=== PATIENT | male | born 1955 | race Hispanic/Latino ===

== ENCOUNTER 2018-07-12 12:01 | Inpatient (IN) | payer MEDICAID ==
[2018-07-12] MEDS ORDERED: NACL 0.9% 500 ML 500 ML IV ONE (12:26)
[2018-07-12] MEDS ORDERED: TYLENOL PR STA (12:26)
[2018-07-12] MEDS ORDERED: NACL 0.9% 1000 ML IV ONE (12:31)
[2018-07-12 12:40] LABS: Hematocrit 25.9 % (35.5-45.6); Hemoglobin 8.4 gm/dl (11.8-15.2); Mean Corpuscular HGB Conc 32 % (32-34); Mean Corpuscular Volume 96 fl (84-94); Platelet Count 175 K/mm3 (140-440); Red Cell Distribution Width 17.2 % (13.2-15.2)
--- NOTE | 2018-07-12 12:45 | Emergency Department Report ---
HPI - General Chief Complaint: Fever Time Seen by Provider: 07/12/18 12:30 - HPI HPI: Room 25 The patient is a 61-year-old male presented with a chief complaint of fever. Patient is a [facility] at a detention and at 11:00am today was found to be febrile at 101F. The patient is aphasic from previous CVA and does not provide history. Location: [See above] Duration: [See above] Quality: [See above] Severity: [See above] Modifying factors: [see above] Context: [see above] Mode of transportation: [not driving] ED Past Medical Hx - Past Medical History Previous Medical History?: Yes Hx Hypertension: Yes Hx CVA: Yes Hx Diabetes: Yes Hx Psychiatric Treatment: Yes (depression) Hx COPD: Yes Hx Dementia: Yes Additional medical history: CAD, hyperlipidemia, aphasia, L AKA. Prostate disorder, peripheral vascular disease - Surgical History Past Surgical History?: Yes Additional Surgical History: explant infected fem-fem bypass graft 07/14/14 - Family History Family history: no significant - Social History Smoking Status: Unknown if ever smoked Substance Use Type: None - Medications Home Medications: Home Medications Medication Instructions Recorded Confirmed Last Taken Type Docusate Sodium [Colace CAP] 2 tab PO QHS 08/03/14 08/12/15 07/24/14 History Metoprolol [Lopressor TAB] 25 mg PO DAILY 08/03/14 08/12/15 07/24/14 History amLODIPine [Norvasc] 5 mg PO DAILY #0 08/03/14 08/12/15 07/24/14 History 5 ALBUTEROL Inhaler (OR & NICU) 2 puff IH QID PRN #1 inhalation 08/08/14 08/12/15 Unknown Rx [ProAir HFA Inhaler] AtorvaSTATin [Lipitor] 10 mg PO QHS 06/21/15 08/12/15 Unknown History Citalopram [Celexa] 20 mg PO DAILY 06/21/15 08/12/15 Unknown History Gabapentin [Neurontin] 100 mg PO BID 06/21/15 08/12/15 Unknown History HYDROcodone/APAP 5-325 [[place] 1 each PO Q6H PRN 06/21/15 08/12/15 Unknown History 5-325 mg TAB] LORazepam [Ativan] 0.5 mg PO Q4H PRN 06/21/15 08/12/15 Unknown History Vitamin C 500 mg PO DAILY 06/21/15 08/12/15 Unknown History Ipratropium/Albuterol Sulfate 1 ampul IH Q6HRT PRN 08/12/15 Unknown History [DUONEB *Not for PRN Use*] Tamsulosin [Flomax] 0.4 mg PO DAILY 08/12/15 Unknown History Temazepam [Restoril] 15 mg PO QHS PRN 08/12/15 Unknown History traMADol [Ultram] 50 mg PO Q6HR PRN 08/12/15 Unknown History ED Review of Systems ROS: Stated complaint: ELVIA Other details as noted in HPI Comment: Unobtainable due to pts medical conditions Physical Exam - Physical Exam Vital Signs: Vital Signs 07/12/18 12:12 Temperature 99.7 F H Pulse Rate 124 H Respiratory 16 Rate Blood Pressure 80/50 O2 Sat by Pulse 95 Oximetry Physical Exam: GENERAL: The patient is well-developed adult male lying on stretcher aphasia and contracted HEENT: Normocephalic. Atraumatic. Patient has moist mucous membranes. NECK: Supple. Trachea midline CHEST/LUNGS: Clear to auscultation. There is no respiratory distress noted. HEART/CARDIOVASCULAR: Regular. There is tachycardia. The patient is hy potensive ABDOMEN: Abdomen is soft, nontender. Patient has normal bowel sounds. There is no abdominal distention. SKIN: There is a chronic appearing ulceration to the sole of the right foot at the great toe MTP joint. There is no edema. There is no diaphoresis. NEURO: The patient is awake. The patient is aphasic from previous CVA MUSCULOSKELETAL: There is no tenderness or deformity. ED Course Vital Signs 07/12/18 12:12 Temperature 99.7 F H Pulse Rate 124 H Respiratory 16 Rate Blood Pressure 80/50 O2 Sat by Pulse 95 Oximetry ED Medical Decision Making - Lab Data Result diagrams: 07/12/18 12:03 07/12/18 12:03 - EKG Data -: EKG Interpreted by Me EKG shows normal: sinus rhythm Rate: tachycardia (126 bpm) - EKG Data When compared to previous EKG there are: previous EKG unavailable Interpretation: other (no ischemic changes seen) - Radiology Data Radiology results: image reviewed (chest x-ray) interpreted by me: Chest x-ray-right middle lobe consolidation - Differential Diagnosis pneumonia, UTI, decubitus ulcer Critical care attestation.: If time is entered above; I have spent that time in minutes in the direct care of this critically ill patient, excluding procedure time. ED Disposition Clinical Impression: Pneumonia, Sepsis Disposition: OP ADMIT IP TO THIS HOSP Is pt being admited?: Yes Does the pt Need Aspirin: No Condition: Serious Instructions: Bacterial Pneumonia (ED) Referrals: SILAS BARONE MD [Primary Care Provider] - 3-5 Days Time of Disposition: 14:24 (hospitalist notified (Dr Velasquez))
[2018-07-12] MEDS ORDERED: VANCOMYCIN 1,250 MG in NACL 0.9% 500 ML 500 ML IV ONE (12:46)
[2018-07-12 12:55] LABS: Calcium 7.7 mg/dL (8.4-10.2); INR 1.53 (0.87-1.13)
[2018-07-12] MEDS ORDERED: ROCEPHIN/NS 1 GM/50 ML 1 GM/50 ML BAG IV SCH (13:00)
[2018-07-12] MEDS ORDERED: VANCOMYCIN PHARMACY TO DOSE IV SCH (13:00)
[2018-07-12] MEDS ORDERED: MAXIPIME/NS 2 GM/100 ML 2 GM/100 ML BAG IV SCH (14:00)
--- NOTE | 2018-07-12 14:24 | XRay Report ---
PORTABLE CHEST INDICATION: Possible sepsis. COMPARISON: 06/25/2015 FINDINGS: Portable, frontal chest radiograph demonstrates stable cardiomediastinal silhouette. Increased perihilar markings bilaterally though now noted, nonspecific. Increased infrahilar haziness bilaterally as well, left greater than right with partly obscured left hemidiaphragm medially. No significant pleural effusions or CHF. Osteopenia/osteoporosis. CONCLUSION: New/increased left more than right basilar hazy opacities/pneumonias, as detailed above. Please correlate. Thank you for the opportunity to participate in this patient's care.
[2018-07-12 14:27] LABS: Anisocytosis 1+; Band Neutrophils # (Manual) 1.3 K/mm3; Basophils % (Manual) 0 % (0.0-1.8); Eosinophils % (Manual) 0 % (0.0-4.3); Hypochromasia 1+; Platelet Estimate Consistent w Auto; Total Cells Counted 100
[2018-07-12] MEDS ORDERED: MAXIPIME/NS 1 GM/100 ML 1 GM/100 ML BAG IV SCH (15:00)
[2018-07-12 16:09] LABS: Bacteria,Urine 2+ /HPF (Negative); Bilirubin,Urine NEG (Negative); Blood,Urine MOD (Negative); Color,Urine Amber (Yellow); Mucus,Urine FEW /HPF; Urobilinogen,Urine < 2.0 mg/dL (<2.0)
[2018-07-12] MEDS ORDERED: ULTRAM PO PRN (21:51)
[2018-07-12] MEDS ORDERED: ZOFRAN IV PRN (21:52)
[2018-07-12] MEDS ORDERED: SODIUM CHLORIDE FLUSH SYRINGE 10 ML IV PRN (21:52)
[2018-07-12] MEDS ORDERED: TYLENOL PO PRN (21:52)
[2018-07-12] MEDS ORDERED: MORPHINE IV PRN (21:53)
[2018-07-12] MEDS ORDERED: IBUPROFEN PO PRN (21:53)
[2018-07-12] MEDS ORDERED: PROVENTIL IH PRN (21:54)
[2018-07-12] MEDS ORDERED: COZAAR PO SCH (22:00)
[2018-07-12] MEDS ORDERED: THERAGRAN-M Tab PO SCH (22:00)
[2018-07-12] MEDS ORDERED: PEPCID PO SCH (22:00)
[2018-07-12] MEDS ORDERED: HEPARIN SUB-Q SCH (22:00)
[2018-07-12] MEDS ORDERED: TYLENOL PO SCH (22:00)
[2018-07-12] MEDS ORDERED: D5NS 1,000 ML IV SCH (22:00)
[2018-07-12] MEDS ORDERED: NEURONTIN PO SCH (22:00)
[2018-07-12] MEDS ORDERED: SENOKOT PO SCH (22:00)
--- NOTE | 2018-07-12 22:00 | Event Note ---
Date: 07/12/18 See dictated history and physical in the reports Right upper lobe pneumonia COPD exacerbation Acute kidney injury Hypertension BPH
--- NOTE | 2018-07-12 22:57 | History and Physical Report ---
CHIEF COMPLAINT: 1. Fever. 2. Shortness of breath. HISTORY OF PRESENT ILLNESS: The patient is a 63-year-old male with left above knee amputation, cerebrovascular accident with aphasia, hypertension, COPD, last hospital visit being in 2016, comes in for increasing shortness of breath and cough and fever. Cough productive of mucoid to yellow sputum. The patient was febrile at 101 degrees for the last couple of days. No exacerbating or relieving factors. The patient has multiple medical problems including hypertension, cerebrovascular accident, diabetes, depression, COPD, dementia, coronary artery disease and left above knee amputation. PAST MEDICAL HISTORY: As mentioned, hypertension, CVA, diabetes, depression, COPD, dementia, coronary artery disease, hyperlipidemia, aphasia, left below knee amputation, BPH and peripheral vascular disease. SURGICAL HISTORY: Infected fem-fem bypass graft and left above knee amputation. FAMILY HISTORY: Hypertension. SOCIAL HISTORY: Smoker in the past. CURRENT MEDICATIONS: On the chart. REVIEW OF SYSTEMS: Significant for fever, aphasia and cough and shortness of breath. Otherwise, review of systems are negative. PHYSICAL EXAMINATION: GENERAL: A young elderly male, cooperative during the examination. Aphasic. VITAL SIGNS: Temperature of 101 and 98.5. Pulse is 124, respiratory rate is 20, sats are 92%. HEENT: Unremarkable. NECK: No lymphadenopathy. No carotid bruit. LUNGS: Scattered rhonchi bilaterally. Scattered rales on the right infra-axillary region. CARDIOVASCULAR: S1, S2 heard. No gallop, no murmur, no rub. Apical impulse in left fifth intercostal space and midclavicular line. ABDOMEN: Soft and benign. No hepatosplenomegaly. No guarding, no rigidity. EXTREMITIES: Small ecchymotic lesions present on the right lower extremity. Left above knee amputation present. CENTRAL NERVOUS SYSTEM: Alert and oriented, aphasic. Cannot give much history. LABORATORY DATA: Significant for white count of 7500, hemoglobin of 8.4, hematocrit of 25.9 and platelet count of 175,000. Sodium is 144, potassium is 4.7, chloride is 111.6, bicarbonate is 17, BUN and creatinine 62 and 4.4. Lactic acid is 2.4, albumin is 2.0. No urine was done. Chest x-ray shows right middle lobe consolidation. EKG shows sinus tachycardia, heart rate of 126 per minute. ASSESSMENT AND PLAN: 1. Right side pneumonia. The patient initiated on IV fluids, IV ceftriaxone and IV Zithromax. 2. Chronic obstructive pulmonary disease exacerbation. The patient initiated on low dose Solu-Medrol, DuoNebs and antibiotics. 3. Hypertension. Continue metoprolol and amlodipine. 4. Hyperlipidemia. Continue atorvastatin 20 mg daily. 6. Peripheral neuropathy. Continue gabapentin. 7. Benign prostatic hypertrophy. Continue Flomax. 8. Acute kidney injury. The patient's baseline BUN and creatinine 31 and 1.3 on 06/25/2015 and today it is 62 and 4.4. Also, the patient became anemic. Probably chronic kidney disease or acute kidney injury on top of chronic kidney disease. Nephrology consult requested. IV fluids in the meantime. 9. Borderline diabetes, coverage. Check hemoglobin A1c. 10. Sepsis. Lactic acid is high at 2.4. The patient on antibiotics and IV fluids. 11. Deep venous thrombosis prophylaxis, heparin 5000 q. 12 hours. JOB# [id number] JUSTIN/NTS
[2018-07-12] MEDS ORDERED: NACL 0.9% 1000 ML 1,000 ML IV SCH (23:00)
[2018-07-12 23:24] LABS: % Iron Saturation 11.11 %
[2018-07-12] MEDS: ROCEPHIN/NS 2 GM/100 ML 2 GM/100 ML BAG IV SCH (23:29)
[2018-07-12] MEDS: ZITHROMAX 500 MG in NACL 0.9% 250ML 250 ML IV SCH (23:30)
[2018-07-13] MEDS: SOLU-Medrol IV SCH ×3 (00:09→17:55)
[2018-07-13] MEDS: REMERON PO SCH ×2 (00:10→22:39)
[2018-07-13] MEDS: FLOMAX PO SCH ×3 (00:10→22:40)
[2018-07-13] MEDS: HALFPRIN EC PO SCH ×2 (00:11→10:20)
[2018-07-13] MEDS: LOPRESSOR PO SCH ×2 (00:11→10:17)
[2018-07-13] MEDS: NORVASC PO SCH ×2 (00:11→10:18)
[2018-07-13] MEDS: PEPCID PO SCH ×3 (00:11→22:41)
[2018-07-13] MEDS: SODIUM CHLORIDE FLUSH SYRINGE 10 ML IV SCH ×3 (00:12→23:40)
[2018-07-13 06:08] LABS: Hematocrit 22.1 % (35.5-45.6); Hemoglobin 7.2 gm/dl (11.8-15.2); Mean Corpuscular HGB Conc 33 % (32-34); Mean Corpuscular Volume 94 fl (84-94); Platelet Count 149 K/mm3 (140-440); Red Blood Count 2.34 M/mm3 (3.65-5.03); Red Cell Distribution Width 17.4 % (13.2-15.2)
[2018-07-13 06:33] LABS: Albumin 1.9 g/dL (3.9-5)
[2018-07-13] MEDS: DUONEB *Not for PRN Use IH SCH ×5 (07:06→20:11)
--- NOTE | 2018-07-13 08:21 | Progress Note ---
Assessment and Plan Assessment and plan: Patient is a 63 yo man from [facility] (I believe based upon 2016 records) [place] with a plethora of severe co-morbidities including pad s/p left AKA, hypertension, COPD, diet controlled DM type 2, Dementia, MDD, CAD, BPH and CVA with aphasia, quadriplegia who presented to [facility] ED with fevers, sob, confusion * pCXR conclusion: New/increased left more than right basilar hazy opacities/pneumonias -Sepsis due to bilateral pneumonia, UTI and skin infection: treat with IV abx, consult ID -Acute hypoxic respiratory failure requring 100% NRB: wean to nasal canula 02 -Acute metabolic encephalopathy -Drop in H/H: stop sq heparin -Hypernatremia: change IVF -AE COPD: treated with iv steroids, abx and nebs -Acidosis: treat with IVF -ARF, Atn+vasomotor nephropathy: stopped motrin, stopped losartan, give ivf, monitor bmp closely, Nephrology consulted -Severe Protein Calorie malnutrition, poa, bmi 16.5, albumin 1.9: consult Stubber -Sacral decubitus ulcer at least stage 3/scrotal/ abrasions/penis skin lesions/left knee abrasions/left foot bunion area unstageable ulcer: wound care consulted -DM type 2, borderline, a1c 6.3 CCT 32 minutes History Interval history: Patient was seen and examined. Follow-up on current diagnosis of FEVER. No overnight events reported to me. Imaging, nursing note, chart, labs and old chart reviewed. Hospitalist Physical - Physical exam Narrative exam: Gen: cachetic, ill appearing, chronically disable, no acute respiratory distress, NAD, Orientated x 1 HEENT: NCAT, EOMI, PERRL, OP Clear Neck: supple, no adenopathy, no thyromegaly, no JVD CVS/Heart: Regular tachycardia, normal S1S2, pulses present bilaterally Chest/Lungs: coarse bs bilateral, diminished bs bilateral, Symmetrical chest expansion, good air entry bilaterally GI/Abdomen: soft, NTND, good bowel sounds, no guarding or rebound /Bladder: no suprapubic tenderness, no CVA or paraspinal tenderness Extermity/Skin: multiple different areas of skin breakdowns, see admission photos, MSK: left AKA, contracted legs, Neuro: CN 2-12 grossly intact, doesn't follow all commands Psych: confused - Constitutional Vitals: Temp Pulse Resp BP Pulse Ox 98.3 F 117 H 18 99/52 87 07/13/18 07:58 07/13/18 07:58 07/13/18 07:58 07/13/18 07:58 07/13/18 07:58 Results - Labs CBC & Chem 7: 07/13/18 04:22 07/13/18 04:22 Labs: Laboratory Last Values WBC 4.5 K/mm3 (4.5-11.0) 07/13/18 04:22 RBC 2.34 M/mm3 (3.65-5.03) L 07/13/18 04:22 Hgb 7.2 gm/dl (11.8-15.2) L 07/13/18 04:22 Hct 22.1 % (35.5-45.6) L 07/13/18 04:22 MCV 94 fl (84-94) 07/13/18 04:22 MCH 31 pg (28-32) 07/13/18 04:22 MCHC 33 % (32-34) 07/13/18 04:22 RDW 17.4 % (13.2-15.2) H 07/13/18 04:22 Plt Count 149 K/mm3 (140-440) 07/13/18 04:22 Add Manual Diff Complete 07/12/18 12:03 Total Counted 100 07/12/18 12:03 Seg Neutrophils % Training Mgr 07/13/18 04:22 Seg Neuts % (Manual) 77.0 % (40.0-70.0) H 07/12/18 12:03 17.0 % 07/12/18 12:03 1.0 % (13.4-35.0) L 07/12/18 12:03 Reactive Lymphs % (Man) 0 % 07/12/18 12:03 4.0 % (0.0-7.3) 07/12/18 12:03 0 % (0.0-4.3) 07/12/18 12:03 0 % (0.0-1.8) 07/12/18 12:03 1.0 % 07/12/18 12:03 0 % 07/12/18 12:03 0 % 07/12/18 12:03 0 % 07/12/18 12:03 Nucleated RBC % Not Reportable 07/12/18 12:03 Seg Neutrophils # Man 5.8 K/mm3 (1.8-7.7) 07/12/18 12:03 Band Neutrophils # 1.3 K/mm3 07/12/18 12:03 0.1 K/mm3 (1.2-5.4) L 07/12/18 12:03 Abs React Lymphs (Man) 0.0 K/mm3 07/12/18 12:03 0.3 K/mm3 (0.0-0.8) 07/12/18 12:03 0.0 K/mm3 (0.0-0.4) 07/12/18 12:03 0.0 K/mm3 (0.0-0.1) 07/12/18 12:03 0.1 K/mm3 07/12/18 12:03 0.0 K/mm3 07/12/18 12:03 0.0 K/mm3 07/12/18 12:03 Blast Cells # 0.0 K/mm3 07/12/18 12:03 WBC Morphology Not Reportable 07/12/18 12:03 Hypersegmented Neuts Not Reportable 07/12/18 12:03 Hyposegmented Neuts Not Reportable 07/12/18 12:03 Hypogranular Neuts Not Reportable 07/12/18 12:03 Not Reportable 07/12/18 12:03 Not Reportable 07/12/18 12:03 Not Reportable 07/12/18 12:03 Not Reportable 07/12/18 12:03 Not Reportable 07/12/18 12:03 Not Reportable 07/12/18 12:03 Consistent w auto 07/12/18 12:03 Not Reportable 07/12/18 12:03 Plt Clumps, EDTA Not Reportable 07/12/18 12:03 Not Reportable 07/12/18 12:03 Not Reportable 07/12/18 12:03 Not Reportable 07/12/18 12:03 Plt Morphology Comment Not Reportable 07/12/18 12:03 RBC Morphology Not Reportable 07/12/18 12:03 Dimorphic RBCs Not Reportable 07/12/18 12:03 Not Reportable 07/12/18 12:03 1+ 07/12/18 12:03 Not Reportable 07/12/18 12:03 1+ 07/12/18 12:03 Not Reportable 07/12/18 12:03 Not Reportable 07/12/18 12:03 Not Reportable 07/12/18 12:03 Not Reportable 07/12/18 12:03 Not Reportable 07/12/18 12:03 Not Reportable 07/12/18 12:03 Not Reportable 07/12/18 12:03 Not Reportable 07/12/18 12:03 Not Reportable 07/12/18 12:03 Not Reportable 07/12/18 12:03 Not Reportable 07/12/18 12:03 Not Reportable 07/12/18 12:03 Not Reportable 07/12/18 12:03 Not Reportable 07/12/18 12:03 Not Reportable 07/12/18 12:03 Acanthocytes (Spur) Not Reportable 07/12/18 12:03 Rouleaux Not Reportable 07/12/18 12:03 Not Reportable 07/12/18 12:03 Not Reportable 07/12/18 12:03 Not Reportable 07/12/18 12:03 Not Reportable 07/12/18 12:03 Hem Pathologist Commnt No 07/12/18 12:03 PT 19.4 Sec. (12.2-14.9) H 07/12/18 12:03 INR 1.53 (0.87-1.13) H 07/12/18 12:03 VBG pH 7.320 (7.320-7.420) 07/12/18 12:03 Sodium 149 mmol/L (137-145) H 07/13/18 04:22 Potassium 4.5 mmol/L (3.6-5.0) 07/13/18 04:22 Chloride 119.2 mmol/L (98-107) H 07/13/18 04:22 Carbon Dioxide 16 mmol/L (22-30) L 07/13/18 04:22 18 mmol/L 07/13/18 04:22 BUN 54 mg/dL (9-20) H 07/13/18 04:22 3.6 mg/dL (0.8-1.5) H 07/13/18 04:22 Estimated GFR 17 ml/min 07/13/18 04:22 15 % 07/13/18 04:22 Glucose 117 mg/dL (75-100) H 07/13/18 04:22 6.3 % (4-6) H 07/12/18 22:46 Lactic Acid 2.40 mmol/L (0.7-2.0) H* 07/12/18 19:38 Calcium 8.0 mg/dL (8.4-10.2) L 07/13/18 04:22 Iron 10 ug/dL (49-181) L 07/12/18 22:46 TIBC 90 mcg/dL (250-450) L 07/12/18 22:46 % Saturation 11.11 % 07/12/18 22:46 73 mg/dl (180-329) L 07/12/18 22:46 0.40 mg/dL (0.1-1.2) 07/13/18 04:22 AST 37 units/L (5-40) 07/13/18 04:22 ALT 13 units/L (7-56) 07/13/18 04:22 43 units/L (35-129) 07/13/18 04:22 5.2 g/dL (6.3-8.2) L 07/13/18 04:22 1.9 g/dL (3.9-5) L 07/13/18 04:22 0.6 % 07/13/18 04:22 Vitamin B12 563.8 pg/mL (211-911) 07/12/18 22:46 Barbara (Yellow) 07/12/18 Unknown Cloudy (Clear) 07/12/18 Unknown 5.0 (5.0-7.0) 07/12/18 Unknown Ur Specific [place] 1.016 (1.003-1.030) 07/12/18 Unknown 30 mg/dl mg/dL (Negative) 07/12/18 Unknown Neg mg/dL (Negative) 07/12/18 Unknown Neg mg/dL (Negative) 07/12/18 Unknown Mod (Negative) 07/12/18 Unknown Neg (Negative) 07/12/18 Unknown Neg (Negative) 07/12/18 Unknown < 2.0 mg/dL (<2.0) 07/12/18 Unknown Ur Leukocyte Esterase Lg (Negative) 07/12/18 Unknown 41.0 /HPF (0.0-6.0) H 07/12/18 Unknown 35.0 /HPF (0.0-6.0) 07/12/18 Unknown U Epithel Cells (Auto) 1.0 /HPF (0-13.0) 07/12/18 Unknown 2+ /HPF (Negative) 07/12/18 Unknown Few /HPF 07/12/18 Unknown 2+ /HPF 07/12/18 Unknown Active Medications - Current Medications Current Medications: Generic Name Dose Route Start Last Admin Trade Name Freq PRN Reason Stop Dose Admin Acetaminophen 1,000 mg 07/12/18 22:00 07/13/18 00:08 Tylenol PO 1,000 mg Q12HR LIVIA Administration Acetaminophen 650 mg 07/12/18 21:52 Tylenol PO Q4H PRN Pain MILD(1-3)/Fever >100.5/SIMONS Albuterol 2.5 mg 07/12/18 21:54 Proventil IH Q4HRT PRN Shortness Of Breath Albuterol/Ipratropium 1 ampul 07/13/18 08:00 07/13/18 07:06 Duoneb *Not For Prn Use* IH 1 ampul QIDRT LIVIA Administration Amlodipine Besylate 5 mg 07/12/18 22:00 07/13/18 00:11 Norvasc PO 5 mg DAILY LIVIA Administration Aspirin 81 mg 07/12/18 22:00 07/13/18 00:11 Halfprin Ec PO 81 mg DAILY LIVIA Administration Atorvastatin Calcium 10 mg 07/12/18 22:00 07/13/18 00:11 Lipitor PO 10 mg QHS LIVIA Administration Citalopram Hydrobromide 10 mg 07/13/18 10:00 Celexa PO QAM LIVIA Famotidine 10 mg 07/12/18 22:30 07/13/18 00:11 Pepcid PO 10 mg BID LIVIA Administration Gabapentin 100 mg 07/12/18 22:00 07/13/18 00:10 Neurontin PO 100 mg BID LIVIA Administration Ceftriaxone Sodium 2 gm in 100 mls @ 200 mls/hr 07/12/18 22:00 07/12/18 23:29 Rocephin/Ns 2 Gm/100 Ml IV 200 mls/hr Q24HR@2200 LIVIA Administration Protocol Azithromycin 500 mg/ Sodium 250 mls @ 250 mls/hr 07/12/18 22:00 07/12/18 23:30 Chloride IV 250 mls/hr Q24HR@2200 LIVIA Administration Sodium Chloride 1,000 mls @ 75 mls/hr 07/12/18 23:00 07/12/18 23:29 Nacl 0.9% 1000 Ml IV 75 mls/hr DIRECT LIVIA Administration Insulin Human Lispro 0 unit 07/13/18 07:30 Humalog SUB-Q ACHS [facility] Protocol Methylprednisolone Sodium Succinate 60 mg 07/12/18 22:00 07/13/18 06:00 Solu-Medrol IV 60 mg Q8HR LIVIA Administration Metoprolol Tartrate 12.5 mg 07/12/18 22:00 07/13/18 00:11 Lopressor PO 12.5 mg BID LIVIA Administration Mirtazapine 15 mg 07/12/18 22:00 07/13/18 00:10 Remeron PO 15 mg QHS LIVIA Administration Morphine Sulfate 2 mg 07/12/18 21:53 Morphine IV Q4H PRN Pain, Moderate (4-6) Multivitamins/Minerals 1 each 07/12/18 22:00 07/13/18 00:11 Theragran-M Tab PO 1 each DAILY LIVIA Administration Ondansetron HCl 4 mg 07/12/18 21:52 Zofran IV Q8H PRN Nausea And Vomiting Oxycodone/Acetaminophen 1 tab 07/12/18 21:53 Percocet 5/325 PO Q6H PRN Pain, Moderate (4-6) Senna 17.2 mg 07/12/18 22:00 07/13/18 00:10 Senokot PO 17.2 mg HS LIVIA Administration Sodium Chloride 10 ml 07/12/18 22:00 07/13/18 00:12 Sodium Chloride Flush Syringe 10 Ml IV 10 ml BID LIVIA Administration Sodium Chloride 10 ml 07/12/18 21:52 Sodium Chloride Flush Syringe 10 Ml IV PRN PRN LINE FLUSH Tamsulosin HCl 0.4 mg 07/12/18 22:00 07/13/18 00:10 Flomax PO 0.4 mg DAILY LIVIA Administration Tramadol HCl 50 mg 07/12/18 21:51 Ultram PO BID PRN Pain
[2018-07-13 08:34] LABS: Band Neutrophils # (Manual) 1.4 K/mm3; Basophils % (Manual) 0 % (0.0-1.8); Eosinophils % (Manual) 0 % (0.0-4.3); Total Cells Counted 100
[2018-07-13 08:35] LABS: Anisocytosis 1+; Dohle Bodies 1+; Hypochromasia 1+
[2018-07-13 08:37] LABS: Platelet Estimate Consistent w Auto
[2018-07-13] MEDS: HumaLOG SUB-Q SCH ×4 (08:48→22:00)
[2018-07-13] MEDS ORDERED: ZOSYN/NS 2.25 GM/50ML 2.25 GM/50 ML BAG IV SCH (09:00)
[2018-07-13] MEDS ORDERED: ZOSYN/NS 4.5GM/100ML 4.5 GM/100 ML VIAL IV SCH (09:00)
--- NOTE | 2018-07-13 09:04 | Consultation ---
History of Present Illness - Reason for Consult Consult date: 07/13/18 acute renal failure - History of Present Illness The patient is a 63 YO male with history significant for DM, HTN, HLD, CVA, Aphasia and L AKA who [place] with complaint of fever. Patient was not able to provide any history and there was no family member at the bedside. [place] he had a temp of 101F. Labs were significant for Sodium 149 and creatinine 3.9. CXR showed bilateral PNA. Nephrology was consulted for further evaluation. Past History Past Medical History: diabetes, hypertension, hyperlipidemia, stroke Medications and Allergies Allergies Allergy/AdvReac Type Severity Reaction Status Date / Time No Known Allergies Allergy Verified 06/21/15 09:22 Home Medications Medication Instructions Recorded Confirmed Last Taken Type Metoprolol [Lopressor TAB] 12.5 mg PO BID 08/03/14 07/12/18 07/24/14 History amLODIPine [Norvasc] 5 mg PO DAILY #0 08/03/14 07/12/18 07/24/14 History 5 AtorvaSTATin [Lipitor] 10 mg PO QHS 06/21/15 07/12/18 Unknown History Gabapentin [Neurontin] 100 mg PO BID 06/21/15 07/12/18 Unknown History Tamsulosin [Flomax] 0.4 mg PO DAILY 08/12/15 07/12/18 Unknown History traMADol [Ultram] 50 mg PO BID PRN 08/12/15 07/12/18 Unknown History Acetaminophen [Tylenol] 1,000 mg PO Q12HR 07/12/18 07/12/18 Unknown History Aspirin [Adult Aspirin] 81 mg PO DAILY 07/12/18 07/12/18 Unknown History Citalopram [celeXA] 10 mg PO QAM 07/12/18 07/12/18 Unknown History Losartan [Cozaar] 25 mg PO QDAY 07/12/18 07/12/18 Unknown History Mirtazapine [Remeron] 15 mg PO QHS 07/12/18 07/12/18 Unknown History Multivit,Calc,Mins/Iron/Folic 1 each PO DAILY 07/12/18 07/12/18 Unknown History [Thera-M Caplet] Sennosides Tab [Senokot] 17.2 mg PO HS 07/12/18 07/12/18 Unknown History Active Meds: Active Medications Acetaminophen (Tylenol) 650 mg PO Q4H PRN PRN Reason: Pain MILD(1-3)/Fever >100.5/SIMONS Albuterol (Proventil) 2.5 mg IH Q4HRT PRN PRN Reason: Shortness Of Breath Albuterol/Ipratropium (Duoneb *Not For Prn Use*) 1 ampul IH QIDRT [facility] Last Admin: 07/13/18 07:06 Dose: 1 ampul Documented by: Amlodipine Besylate (Norvasc) 5 mg PO DAILY [facility] Last Admin: 07/13/18 00:11 Dose: 5 mg Documented by: Aspirin (Halfprin Ec) 81 mg PO DAILY [facility] Last Admin: 07/13/18 00:11 Dose: 81 mg Documented by: Atorvastatin Calcium (Lipitor) 10 mg PO QHS [facility] Last Admin: 07/13/18 00:11 Dose: 10 mg Documented by: Citalopram Hydrobromide (Celexa) 10 mg PO QAM [facility] Famotidine (Pepcid) 10 mg PO BID [facility] Last Admin: 07/13/18 00:11 Dose: 10 mg Documented by: Ceftriaxone Sodium (Rocephin/Ns 2 Gm/100 Ml) 2 gm in 100 mls @ 200 mls/hr IV Q24HR@2200 [facility]; Protocol Last Admin: 07/12/18 23:29 Dose: 200 mls/hr Documented by: Azithromycin 500 mg/ Sodium (Chloride) 250 mls @ 250 mls/hr IV Q24HR@2200 [facility] Last Admin: 07/12/18 23:30 Dose: 250 mls/hr Documented by: Dextrose (D5w) 1,000 mls @ 75 mls/hr IV DIRECT [facility] Insulin Human Lispro (Humalog) 0 unit SUB-Q ACHS [facility]; Protocol Last Admin: 07/13/18 08:48 Dose: 2 unit Documented by: Methylprednisolone Sodium Succinate (Solu-Medrol) 40 mg IV Q12H [facility] Metoprolol Tartrate (Lopressor) 12.5 mg PO BID [facility] Last Admin: 07/13/18 00:11 Dose: 12.5 mg Documented by: Mirtazapine (Remeron) 15 mg PO QHS [facility] Last Admin: 07/13/18 00:10 Dose: 15 mg Documented by: Morphine Sulfate (Morphine) 2 mg IV Q4H PRN PRN Reason: Pain, Moderate (4-6) Ondansetron HCl (Zofran) 4 mg IV Q8H PRN PRN Reason: Nausea And Vomiting Oxycodone/Acetaminophen (Percocet 5/325) 1 tab PO Q6H PRN PRN Reason: Pain, Moderate (4-6) Sodium Chloride (Sodium Chloride Flush Syringe 10 Ml) 10 ml IV BID [facility] Last Admin: 07/13/18 00:12 Dose: 10 ml Documented by: Sodium Chloride (Sodium Chloride Flush Syringe 10 Ml) 10 ml IV PRN PRN PRN Reason: LINE FLUSH Tamsulosin HCl (Flomax) 0.4 mg PO DAILY [facility] Last Admin: 07/13/18 00:10 Dose: 0.4 mg Documented by: Review of Systems ROS unobtainable: due to mental status Exam - Vital Signs Vital signs: Vital Signs Temp Pulse Resp BP Pulse Ox 99.7 F H 124 H 16 80/50 95 07/12/18 12:12 07/12/18 12:12 07/12/18 12:12 07/12/18 12:12 07/12/18 12:12 - General Appearance General appearance: well-developed, appears stated age, other (b/l mittens, not in distress) EENT: ATNC Neck: Present: trachea midline Respiratory: Clear to Ascultation Heart: S1S2, no murmurs Gastrointestinal: Present: normoactive bowel sounds, other (Condom catheter). Absent: tenderness Integumentary: ulcer (R LE dressing) Neurologic: other (barely arousable) Musculoskeletal: Present: other (L AKA, R LE contractures noted) Results - Lab Results 07/14/18 09:18 07/14/18 04:01 Most recent lab results Calcium 8.0 mg/dL (8.4-10.2) L 07/13/18 04:22 - Image Kidney/bladder ultrasound: report reviewed Assessment and Plan 1. Acute kidney injury: Vasomotor LUANA in the setting of volume depletion. Continue IV fluids. Renal function is improving. Renal US was negative for hydro. Avoid nephrotoxic agents. Meds dosage based on GFR. 2. FEN: Volume depletion, continue IV fluids. Hypernatremia, IV D5W. Metabolic acidosis, continue 3. Sepsis: Bilateral pneumonia, UTI and skin infection. IV Abx. 4. Acute hypoxic respiratory failure: On nasal cannula 02. 5. Acute metabolic encephalopathy. 6. Sacral decubitus ulcer at least stage 3. 7. DM type 2.
[2018-07-13] MEDS: celeXA PO SCH (10:20)
[2018-07-13] MEDS: D5W 1,000 ML IV SCH (10:23)
[2018-07-13 16:48] LABS: Creatinine,Urine 66.5 mg/dL (0.1-20.0)
--- NOTE | 2018-07-13 20:40 | Ultrasound Report ---
PROCEDURE: US RENAL BILAT TECHNIQUE: Real-time sonography in multiple planes of the kidneys, ureters and urinary bladder was p erformed with image documentation. HISTORY: Acute renal failure. COMPARISONS: None . FINDINGS: RIGHT kidney: Diffusely increased parenchymal echotexture is noted. No focal renal mass, calculus, or hydronephrosis. Length: 9.5 x 4.5 x 3.4 cm. LEFT kidney: Diffusely increased parenchymal echotexture is noted. No focal renal mass, calculus, or hydronephrosis. Length: 9.0 x 4.5 x 4.7 cm. Bladder: Normal. No wall thickening. IMPRESSION: Increased renal parenchymal echotexture with parenchymal thinning consistent with chronic medical renal disease. This document is electronically signed by Silvano Cobb MD., Jul 13 2018 08:38:48 PM ET
[2018-07-13] MEDS: ROCEPHIN/NS 2 GM/100 ML 2 GM/100 ML BAG IV SCH (23:33)
[2018-07-13] MEDS: ZITHROMAX 500 MG in NACL 0.9% 250ML 250 ML IV SCH (23:52)
[2018-07-14] MEDS: D5W 1,000 ML IV SCH ×2 (03:19→17:10)
[2018-07-14 06:29] LABS: Calcium 8.1 mg/dL (8.4-10.2)
[2018-07-14] MEDS: SOLU-Medrol IV SCH ×2 (06:52→18:13)
[2018-07-14] MEDS: DUONEB *Not for PRN Use IH SCH ×4 (07:12→20:43)
--- NOTE | 2018-07-14 08:05 | Event Note ---
Date: 07/14/[address] French. 63 y/o male with PVD s/p left AKA, DM, Dementia, CVA with aphasia, quadriplegia admitted with fever, SOB and confusion. Noted with sepsis probably mutifactorial due to RLL pneumonia ? aspiration, UTI, right foot ulcer ? infected and sacral decubitus ulcer. Also LUANA. Currently on ceftriaxone and azithromycin. Will add flagyl and vancomycin renally adjusted. XR of right foot. CRP. Request wound care service consult for evaluation and for obtaining deep cultures. Full consultation to f/u tomorrow.
[2018-07-14] MEDS ORDERED: .VANCOMYCIN VIAL 1,000 MG in NACL 0.9% 100 ML IV SCH (09:00)
--- NOTE | 2018-07-14 09:44 | XRay Report ---
PROCEDURE: XR FOOT 3+V RT TECHNIQUE: Right foot, 3 views HISTORY: right foot ulcer ? gas ?osteo COMPARISON: None FINDINGS: There is dislocation of the first digit dorsally. AP view demonstrates some loss of the cortical pasha in along the medial aspect of first metatarsal head. I cannot exclude osteomyelitis. Bones are very osteopenic. IMPRESSION: Dorsal dislocation of the first digit at the MTP joint. AP view demonstrates poorly defined cortical margin along medial aspect of first metatarsal head whic h could represent osteomyelitis. This document is electronically signed by Chica German MD., Jul 14 2018 09:42:46 AM ET
[2018-07-14] MEDS: PEPCID PO SCH ×2 (09:50→21:33)
[2018-07-14] MEDS: celeXA PO SCH (09:50)
[2018-07-14] MEDS: FLAGYL 500 MG/100 ML 500 MG/100 ML BAG IV SCH ×4 (09:51→17:55)
[2018-07-14] MEDS: HALFPRIN EC PO SCH (09:51)
[2018-07-14] MEDS: HumaLOG SUB-Q SCH ×5 (09:55→21:36)
[2018-07-14] MEDS: SODIUM CHLORIDE FLUSH SYRINGE 10 ML IV SCH ×2 (09:56→23:28)
[2018-07-14 10:01] LABS: Hematocrit 21.5 % (35.5-45.6); Hemoglobin 7.1 gm/dl (11.8-15.2); Mean Corpuscular HGB Conc 33 % (32-34); Mean Corpuscular Volume 94 fl (84-94); Platelet Count 132 K/mm3 (140-440); Red Blood Count 2.29 M/mm3 (3.65-5.03); Red Cell Distribution Width 17.2 % (13.2-15.2)
--- NOTE | 2018-07-14 14:27 | Progress Note ---
Assessment and Plan Assessment and plan: Patient is a 63 yo man from [facility] (I believe based upon 2016 records) [place] with a plethora of severe co-morbidities including pad s/p left AKA, hypertension, COPD, diet controlled DM type 2, Dementia, MDD, CAD, BPH and CVA with aphasia, quadriplegia who presented to [facility] ED with fevers, sob, confusion * pCXR conclusion: New/increased left more than right basilar hazy opacities/pneumonias -Sepsis due to bilateral pneumonia, UTI and skin infection: treat with IV abx, consulted ID, input noted, abx adjusted -Acute hypoxic respiratory failure requring 100% NRB: wean to nasal canula 02 -Acute metabolic encephalopathy -Drop in H/H: stop sq heparin -Hypernatremia: change IVF -AE COPD: treated with iv steroids, abx and nebs -Acidosis: treat with IVF -ARF, Atn+vasomotor nephropathy: stopped motrin, stopped losartan, give ivf, monitor bmp closely, Nephrology consulted -Severe Protein Calorie malnutrition, poa, bmi 16.5, albumin 1.9: consult Kitchen Worker -Sacral decubitus ulcer at least stage 3/scrotal/ abrasions/penis skin lesions/left knee abrasions/left foot bunion area unstageable ulcer: wound care consulted -DM type 2, borderline, a1c 6.3 full code, I met with his Fraternal twin Travis at bedside on Sunday, advance directives discussed. History Interval history: Patient was seen and examined. Follow-up on current diagnosis of FEVER. No overnight events reported to me. Imaging, nursing note, chart, labs and old chart reviewed. Hospitalist Physical - Physical exam Narrative exam: Gen: cachetic, ill appearing, chronically disable, no acute respiratory distress, NAD, Orientated x 1 HEENT: NCAT, EOMI, PERRL, OP Clear Neck: supple, no adenopathy, no thyromegaly, no JVD CVS/Heart: Regular tachycardia, normal S1S2, pulses present bilaterally Chest/Lungs: coarse bs bilateral, diminished bs bilateral, Symmetrical chest expansion, good air entry bilaterally GI/Abdomen: soft, NTND, good bowel sounds, no guarding or rebound /Bladder: no suprapubic tenderness, no CVA or paraspinal tenderness Extermity/Skin: multiple different areas of skin breakdowns, see admission photos, MSK: left AKA, contracted legs, Neuro: CN 2-12 grossly intact, doesn't follow all commands Psych: confused - Constitutional Vitals: Temp Pulse Resp BP Pulse Ox 98.0 F 97 H 20 108/57 87 07/14/18 08:43 07/14/18 14:00 07/14/18 14:00 07/14/18 12:30 07/14/18 12:30 Results - Labs CBC & Chem 7: 07/14/18 09:18 07/14/18 04:01 Labs: Laboratory Last Values WBC 7.6 K/mm3 (4.5-11.0) 07/14/18 09:18 RBC 2.29 M/mm3 (3.65-5.03) L 07/14/18 09:18 Hgb 7.1 gm/dl (11.8-15.2) L 07/14/18 09:18 Hct 21.5 % (35.5-45.6) L 07/14/18 09:18 MCV 94 fl (84-94) 07/14/18 09:18 MCH 31 pg (28-32) 07/14/18 09:18 MCHC 33 % (32-34) 07/14/18 09:18 RDW 17.2 % (13.2-15.2) H 07/14/18 09:18 Plt Count 132 K/mm3 (140-440) L 07/14/18 09:18 Add Manual Diff Complete 07/13/18 04:22 Total Counted 100 07/13/18 04:22 Seg Neutrophils % Tortilla Maker 07/13/18 04:22 Seg Neuts % (Manual) 65.0 % (40.0-70.0) 07/13/18 04:22 30.0 % 07/13/18 04:22 3.0 % (13.4-35.0) L 07/13/18 04:22 Reactive Lymphs % (Man) 0 % 07/13/18 04:22 2.0 % (0.0-7.3) 07/13/18 04:22 0 % (0.0-4.3) 07/13/18 04:22 0 % (0.0-1.8) 07/13/18 04:22 0 % 07/13/18 04:22 0 % 07/13/18 04:22 0 % 07/13/18 04:22 0 % 07/13/18 04:22 Nucleated RBC % Not Reportable 07/13/18 04:22 Seg Neutrophils # Man 2.9 K/mm3 (1.8-7.7) 07/13/18 04:22 Band Neutrophils # 1.4 K/mm3 07/13/18 04:22 0.1 K/mm3 (1.2-5.4) L 07/13/18 04:22 Abs React Lymphs (Man) 0.0 K/mm3 07/13/18 04:22 0.1 K/mm3 (0.0-0.8) 07/13/18 04:22 0.0 K/mm3 (0.0-0.4) 07/13/18 04:22 0.0 K/mm3 (0.0-0.1) 07/13/18 04:22 0.0 K/mm3 07/13/18 04:22 0.0 K/mm3 07/13/18 04:22 0.0 K/mm3 07/13/18 04:22 Blast Cells # 0.0 K/mm3 07/13/18 04:22 WBC Morphology Not Reportable 07/13/18 04:22 Hypersegmented Neuts Not Reportable 07/13/18 04:22 Hyposegmented Neuts Not Reportable 07/13/18 04:22 Hypogranular Neuts Not Reportable 07/13/18 04:22 Not Reportable 07/13/18 04:22 Not Reportable 07/13/18 04:22 Not Reportable 07/13/18 04:22 1+ 07/13/18 04:22 Not Reportable 07/13/18 04:22 Not Reportable 07/13/18 04:22 Consistent w auto 07/13/18 04:22 Not Reportable 07/13/18 04:22 Plt Clumps, EDTA Not Reportable 07/13/18 04:22 Not Reportable 07/13/18 04:22 Not Reportable 07/13/18 04:22 Not Reportable 07/13/18 04:22 Plt Morphology Comment Not Reportable 07/13/18 04:22 RBC Morphology Not Reportable 07/13/18 04:22 Dimorphic RBCs Not Reportable 07/13/18 04:22 Not Reportable 07/13/18 04:22 1+ 07/13/18 04:22 Not Reportable 07/13/18 04:22 1+ 07/13/18 04:22 Not Reportable 07/13/18 04:22 Not Reportable 07/13/18 04:22 Not Reportable 07/13/18 04:22 Not Reportable 07/13/18 04:22 Not Reportable 07/13/18 04:22 Not Reportable 07/13/18 04:22 Not Reportable 07/13/18 04:22 Not Reportable 07/13/18 04:22 Not Reportable 07/13/18 04:22 Not Reportable 07/13/18 04:22 Not Reportable 07/13/18 04:22 Not Reportable 07/13/18 04:22 Not Reportable 07/13/18 04:22 Not Reportable 07/13/18 04:22 Not Reportable 07/13/18 04:22 Acanthocytes (Spur) Not Reportable 07/13/18 04:22 Rouleaux Not Reportable 07/13/18 04:22 Not Reportable 07/13/18 04:22 Not Reportable 07/13/18 04:22 Not Reportable 07/13/18 04:22 Not Reportable 07/13/18 04:22 Hem Pathologist Commnt No 07/13/18 04:22 PT 19.4 Sec. (12.2-14.9) H 07/12/18 12:03 INR 1.53 (0.87-1.13) H 07/12/18 12:03 VBG pH 7.320 (7.320-7.420) 07/12/18 12:03 Sodium 150 mmol/L (137-145) H 07/14/18 04:01 Potassium 3.7 mmol/L (3.6-5.0) 07/14/18 04:01 Chloride 118.4 mmol/L (98-107) H 07/14/18 04:01 Carbon Dioxide 16 mmol/L (22-30) L 07/14/18 04:01 19 mmol/L 07/14/18 04:01 BUN 65 mg/dL (9-20) H 07/14/18 04:01 3.0 mg/dL (0.8-1.5) H 07/14/18 04:01 Estimated GFR 21 ml/min 07/14/18 04:01 22 % 07/14/18 04:01 Glucose 168 mg/dL (75-100) H 07/14/18 04:01 POC Glucose 193 (70-105) H 07/14/18 12:39 6.3 % (4-6) H 07/12/18 22:46 Lactic Acid 2.40 mmol/L (0.7-2.0) H* 07/12/18 19:38 Calcium 8.1 mg/dL (8.4-10.2) L 07/14/18 04:01 Phosphorus 4.00 mg/dL (2.5-4.5) 07/14/18 04:01 Magnesium 2.00 mg/dL (1.7-2.3) 07/14/18 04:01 Iron 10 ug/dL (49-181) L 07/12/18 22:46 TIBC 90 mcg/dL (250-450) L 07/12/18 22:46 % Saturation 11.11 % 07/12/18 22:46 73 mg/dl (180-329) L 07/12/18 22:46 0.40 mg/dL (0.1-1.2) 07/13/18 04:22 AST 37 units/L (5-40) 07/13/18 04:22 ALT 13 units/L (7-56) 07/13/18 04:22 43 units/L (35-129) 07/13/18 04:22 24.60 mg/dL (0.00-1.30) H 07/14/18 09:18 5.2 g/dL (6.3-8.2) L 07/13/18 04:22 1.9 g/dL (3.9-5) L 07/13/18 04:22 0.6 % 07/13/18 04:22 Vitamin B12 563.8 pg/mL (211-911) 07/12/18 22:46 Barbara (Yellow) 07/12/18 Unknown Cloudy (Clear) 07/12/18 Unknown 5.0 (5.0-7.0) 07/12/18 Unknown Ur Specific [place] 1.016 (1.003-1.030) 07/12/18 Unknown 30 mg/dl mg/dL (Negative) 07/12/18 Unknown Neg mg/dL (Negative) 07/12/18 Unknown Neg mg/dL (Negative) 07/12/18 Unknown Mod (Negative) 07/12/18 Unknown Neg (Negative) 07/12/18 Unknown Neg (Negative) 07/12/18 Unknown < 2.0 mg/dL (<2.0) 07/12/18 Unknown Ur Leukocyte Esterase Lg (Negative) 07/12/18 Unknown 41.0 /HPF (0.0-6.0) H 07/12/18 Unknown 35.0 /HPF (0.0-6.0) 07/12/18 Unknown U Epithel Cells (Auto) 1.0 /HPF (0-13.0) 07/12/18 Unknown 2+ /HPF (Negative) 07/12/18 Unknown Few /HPF 07/12/18 Unknown 2+ /HPF 07/12/18 Unknown None seen (None Seen) 07/13/18 16:30 66.5 mg/dL (0.1-20.0) H 07/13/18 16:30 44 mmol/L 07/13/18 16:30 Random Vancomycin 11.0 ug/mL (0-40.0) 07/14/18 04:01 Active Medications - Current Medications Current Medications: Generic Name Dose Route Start Last Admin Trade Name Freq PRN Reason Stop Dose Admin Acetaminophen 650 mg 07/12/18 21:52 Tylenol PO Q4H PRN Pain MILD(1-3)/Fever >100.5/SIMONS Albuterol 2.5 mg 07/12/18 21:54 Proventil IH Q4HRT PRN Shortness Of Breath Albuterol/Ipratropium 1 ampul 07/13/18 08:00 07/14/18 14:00 Duoneb *Not For Prn Use* IH 1 ampul QIDRT LIVIA Administration Aspirin 81 mg 07/12/18 22:00 07/14/18 09:51 Halfprin Ec PO 81 mg DAILY LIVIA Administration Atorvastatin Calcium 10 mg 07/12/18 22:00 07/13/18 22:42 Lipitor PO 10 mg QHS LIVIA Administration Citalopram Hydrobromide 10 mg 07/13/18 10:00 07/14/18 09:50 Celexa PO 10 mg QAM LIVIA Administration Famotidine 10 mg 07/12/18 22:30 07/14/18 09:50 Pepcid PO 10 mg BID LIVIA Administration Ceftriaxone Sodium 2 gm in 100 mls @ 200 mls/hr 07/12/18 22:00 07/13/18 23:33 Rocephin/Ns 2 Gm/100 Ml IV 200 mls/hr Q24HR@2200 LIVIA Administration Protocol Azithromycin 500 mg/ Sodium 250 mls @ 250 mls/hr 07/12/18 22:00 07/13/18 23:52 Chloride IV 250 mls/hr Q24HR@2200 LIVIA Administration Dextrose 1,000 mls @ 75 mls/hr 07/13/18 09:00 07/14/18 03:19 D5w IV 75 mls/hr DIRECT LIVIA Administration Metronidazole 500 mg in 100 mls @ 100 mls/hr 07/14/18 09:00 07/14/18 09:51 Flagyl 500 Mg/100 Ml IV 100 mls/hr Q8HR LIVIA Administration Protocol Insulin Human Lispro 0 unit 07/13/18 07:30 07/14/18 13:31 Humalog SUB-Q Not Given ACHS [facility] Protocol Methylprednisolone Sodium Succinate 40 mg 07/13/18 18:00 07/14/18 06:52 Solu-Medrol IV 40 mg Q12H LIVIA Administration Mirtazapine 15 mg 07/12/18 22:00 07/13/18 22:39 Remeron PO 15 mg QHS LIVIA Administration Morphine Sulfate 2 mg 07/12/18 21:53 07/13/18 17:54 Morphine IV 2 mg Q4H PRN Administration Pain, Moderate (4-6) Ondansetron HCl 4 mg 07/12/18 21:52 Zofran IV Q8H PRN Nausea And Vomiting Oxycodone/Acetaminophen 1 tab 07/12/18 21:53 Percocet 5/325 PO Q6H PRN Pain, Moderate (4-6) Sodium Chloride 10 ml 07/12/18 22:00 07/14/18 09:56 Sodium Chloride Flush Syringe 10 Ml IV 10 ml BID LIVIA Administration Sodium Chloride 10 ml 07/12/18 21:52 Sodium Chloride Flush Syringe 10 Ml IV PRN PRN LINE FLUSH Tamsulosin HCl 0.4 mg 07/13/18 22:00 07/13/18 22:40 Flomax PO 0.4 mg QHS LIVIA Administration Nutrition/Malnutrition Assess - Dietary Evaluation Nutrition/Malnutrition Findings: Nutrition Notes Start: 07/13/18 09:22 Freq: Status: Active Protocol: Document 07/13/18 09:22 LP (Rec: 07/13/18 09:31 LP [id number]) Nutrition Notes 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 Pt In pain and on breathing tx a time of visit. Pt appears to have some temporal and clavial wasting. Consumed 10% of breakfast this AM and did drink juice. Burn Absent Trauma Absent #1 Nutrition Diagnosis Malnutrition Etiology COPD, dementia As Evidenced by Signs and Symptoms BMI=16.5, stage 4 sacral wound , consuming less than 50% of meals Is patient on ventilator? No Is Patient Ambulatory and/or Out of Bed No REE-([facility]-confined to bed) 1563.396 Kcal/Kg value to use for calculation 40 Approximate Energy Requirements Using 2031 kcal/Kg Calculation Used for Recommendations Kcal/kg Additional Notes Protein needs are 61-76g (1.2- 1.5g/kg) Fluid needs are 1ml/kcal Nutrition Intervention Change Diet Order: Continue cardiac diet Add Supplement/Snack (indicate name/kcal Nep[place] shake BID /protein ) Provides kCal: 850 Provides Protein (gm) 38 Goal #1 Meet at least 80% of kcal and protein needs Anticipated Discharge Needs: cardiac diet with ONS BID Follow-Up By: 07/15/18 Additional Comments Follow for intakes, ONS tolerance
--- NOTE | 2018-07-14 20:44 | Progress Note ---
Assessment and Plan 1. Acute kidney injury: Vasomotor LUANA in the setting of volume depletion. Continue IV fluids. Renal function is improving. Renal US was negative for hydro. Avoid nephrotoxic agents. Meds dosage based on GFR. 2. FEN: Volume depletion, continue IV fluids. Hypernatremia, IV D5W. Metabolic acidosis, continue IV fluids. 3. Sepsis: Bilateral pneumonia, UTI and skin infection. IV Abx. 4. Acute hypoxic respiratory failure: On nasal cannula 02. 5. Acute metabolic encephalopathy. 6. Sacral decubitus ulcer at least stage 3. 7. DM type 2. Subjective Date of service: 07/14/18 Interval history: Patient was seen and examined at the bedside. Objective - Vital Signs Vital signs: Vital Signs - 12hr 07/14/18 07/14/18 07/14/18 10:00 12:30 14:00 Temperature Pulse Rate 102 H 96 H Pulse Rate [ 97 H Anterior Bilateral Throughout] Pulse Rate [ 102 H Apical] Pulse Rate [ 102 H Left Radial] Pulse Rate [ 102 H Right Radial] Respiratory 19 Rate Respiratory 20 Rate [Anterior Bilateral Throughout] Blood Pressure 108/57 Blood Pressure [Left] O2 Sat by Pulse 98 87 Oximetry 07/14/18 07/14/18 07/14/18 14:10 17:13 17:23 Temperature Pulse Rate Pulse Rate [ 103 H 112 H 115 H Anterior Bilateral Throughout] Pulse Rate [ Apical] Pulse Rate [ Left Radial] Pulse Rate [ Right Radial] Respiratory Rate Respiratory 20 20 20 Rate [Anterior Bilateral Throughout] Blood Pressure Blood Pressure [Left] O2 Sat by Pulse Oximetry 07/14/18 07/14/18 07/14/18 18:03 19:11 20:23 Temperature 98.1 F 98.1 F Pulse Rate 112 H Pulse Rate [ Anterior Bilateral Throughout] Pulse Rate [ Apical] Pulse Rate [ Left Radial] Pulse Rate [ Right Radial] Respiratory 22 Rate Respiratory Rate [Anterior Bilateral Throughout] Blood Pressure 122/63 120/65 Blood Pressure 120/66 [Left] O2 Sat by Pulse 99 Oximetry - General Appearance General appearance: well-developed, appears stated age, cachectic, other (not in distress) EENT: ATNC Neck: other (Trachea midline) Respiratory: Present: Clear to Ascultation Cardiology: regular, S1S2, no murmurs Gastrointestinal: normoactive bowel sounds, no tenderness, no distended Integumentary: other (R leg dressing) Neurologic: other (arousable, non-verbal, not following any command) Musculoskeletal: other (L AKA, R LE contractures noted) - Lab 07/14/18 09:18 07/14/18 04:01 Most recent lab results Calcium 8.1 mg/dL (8.4-10.2) L 07/14/18 04:01 Phosphorus 4.00 mg/dL (2.5-4.5) 07/14/18 04:01 Magnesium 2.00 mg/dL (1.7-2.3) 07/14/18 04:01 66.5 mg/dL (0.1-20.0) H 07/13/18 16:30 44 mmol/L 07/13/18 16:30 Medications & Allergies - Medications Allergies/Adverse Reactions: Allergies No Known Allergies Allergy (Verified 06/21/15 09:22) Home Medications: Home Medications Medication Instructions Recorded Confirmed Last Taken Type Metoprolol [Lopressor TAB] 12.5 mg PO BID 08/03/14 07/12/18 07/24/14 History amLODIPine [Norvasc] 5 mg PO DAILY #0 08/03/14 07/12/18 07/24/14 History 5 AtorvaSTATin [Lipitor] 10 mg PO QHS 06/21/15 07/12/18 Unknown History Gabapentin [Neurontin] 100 mg PO BID 06/21/15 07/12/18 Unknown History Tamsulosin [Flomax] 0.4 mg PO DAILY 08/12/15 07/12/18 Unknown History traMADol [Ultram] 50 mg PO BID PRN 08/12/15 07/12/18 Unknown History Acetaminophen [Tylenol] 1,000 mg PO Q12HR 07/12/18 07/12/18 Unknown History Aspirin [Adult Aspirin] 81 mg PO DAILY 07/12/18 07/12/18 Unknown History Citalopram [celeXA] 10 mg PO QAM 07/12/18 07/12/18 Unknown History Losartan [Cozaar] 25 mg PO QDAY 07/12/18 07/12/18 Unknown History Mirtazapine [Remeron] 15 mg PO QHS 07/12/18 07/12/18 Unknown History Multivit,Calc,Mins/Iron/Folic 1 each PO DAILY 07/12/18 07/12/18 Unknown History [Thera-M Caplet] Sennosides Tab [Senokot] 17.2 mg PO HS 07/12/18 07/12/18 Unknown History Active Medications: Generic Name Dose Route Start Last Admin Trade Name Freq PRN Reason Stop Dose Admin Acetaminophen 650 mg 07/12/18 21:52 Tylenol PO Q4H PRN Pain MILD(1-3)/Fever >100.5/SIMONS Albuterol 2.5 mg 07/12/18 21:54 Proventil IH Q4HRT PRN Shortness Of Breath Albuterol/Ipratropium 1 ampul 07/13/18 08:00 07/14/18 17:13 Duoneb *Not For Prn Use* IH 1 ampul QIDRT LIVIA Administration Aspirin 81 mg 07/12/18 22:00 07/14/18 09:51 Halfprin Ec PO 81 mg DAILY LIVIA Administration Atorvastatin Calcium 10 mg 07/12/18 22:00 07/13/18 22:42 Lipitor PO 10 mg QHS LIVIA Administration Citalopram Hydrobromide 10 mg 07/13/18 10:00 07/14/18 09:50 Celexa PO 10 mg QAM LIVIA Administration Famotidine 10 mg 07/12/18 22:30 07/14/18 09:50 Pepcid PO 10 mg BID LIVIA Administration Ceftriaxone Sodium 2 gm in 100 mls @ 200 mls/hr 07/12/18 22:00 07/13/18 23:33 Rocephin/Ns 2 Gm/100 Ml IV 200 mls/hr Q24HR@2200 LIVIA Administration Protocol Azithromycin 500 mg/ Sodium 250 mls @ 250 mls/hr 07/12/18 22:00 07/13/18 23:52 Chloride IV 250 mls/hr Q24HR@2200 LIVIA Administration Dextrose 1,000 mls @ 75 mls/hr 07/13/18 09:00 07/14/18 17:10 D5w IV 75 mls/hr DIRECT LIVIA Administration Metronidazole 500 mg in 100 mls @ 100 mls/hr 07/14/18 18:00 07/14/18 17:55 Flagyl 500 Mg/100 Ml IV 100 mls/hr Q8H LIVIA Administration Protocol Insulin Human Lispro 0 unit 07/13/18 07:30 07/14/18 18:12 Humalog SUB-Q 3 unit ACHS LIVIA Administration Protocol Methylprednisolone Sodium Succinate 40 mg 07/13/18 18:00 07/14/18 18:13 Solu-Medrol IV 40 mg Q12H LIVIA Administration Mirtazapine 15 mg 07/12/18 22:00 07/13/18 22:39 Remeron PO 15 mg QHS LIVIA Administration Morphine Sulfate 2 mg 07/12/18 21:53 07/13/18 17:54 Morphine IV 2 mg Q4H PRN Administration Pain, Moderate (4-6) Ondansetron HCl 4 mg 07/12/18 21:52 Zofran IV Q8H PRN Nausea And Vomiting Oxycodone/Acetaminophen 1 tab 07/12/18 21:53 Percocet 5/325 PO Q6H PRN Pain, Moderate (4-6) Sodium Chloride 10 ml 07/12/18 22:00 07/14/18 09:56 Sodium Chloride Flush Syringe 10 Ml IV 10 ml BID LIVIA Administration Sodium Chloride 10 ml 07/12/18 21:52 Sodium Chloride Flush Syringe 10 Ml IV PRN PRN LINE FLUSH Tamsulosin HCl 0.4 mg 07/13/18 22:00 07/13/18 22:40 Flomax PO 0.4 mg QHS LIVIA Administration
[2018-07-14] MEDS: ROCEPHIN/NS 2 GM/100 ML 2 GM/100 ML BAG IV SCH (21:32)
[2018-07-14] MEDS: REMERON PO SCH (21:33)
[2018-07-14] MEDS: FLOMAX PO SCH (21:34)
[2018-07-14] MEDS: ZITHROMAX 500 MG in NACL 0.9% 250ML 250 ML IV SCH (23:30)
[2018-07-15] MEDS: PERCOCET 5/325 PO PRN (00:27)
[2018-07-15] MEDS: FLAGYL 500 MG/100 ML 500 MG/100 ML BAG IV SCH ×3 (02:11→17:45)
[2018-07-15 04:52] LABS: Hematocrit 20.9 % (35.5-45.6); Hemoglobin 6.9 gm/dl (11.8-15.2); Mean Corpuscular HGB Conc 33 % (32-34); Mean Corpuscular Volume 93 fl (84-94); Platelet Count 113 K/mm3 (140-440); Red Blood Count 2.26 M/mm3 (3.65-5.03); Red Cell Distribution Width 17.4 % (13.2-15.2)
[2018-07-15 05:03] LABS: Calcium 7.9 mg/dL (8.4-10.2)
[2018-07-15] MEDS: SOLU-Medrol IV SCH ×2 (05:28→17:45)
[2018-07-15] MEDS: DUONEB *Not for PRN Use IH SCH ×4 (07:09→20:27)
--- NOTE | 2018-07-15 08:03 | Progress Note ---
Assessment and Plan 1. Acute kidney injury: Vasomotor LUANA in the setting of volume depletion. Continue IV fluids. Renal function is improving. Renal US was negative for hydro. Avoid nephrotoxic agents. Meds dosage based on GFR. 2. FEN: Volume depletion, continue IV fluids. Hypernatremia, IV D5W. Metabolic acidosis, continue IV fluids. Monitor lytes. 3. Sepsis: Bilateral pneumonia, UTI and skin infection. IV Abx. 4. Acute hypoxic respiratory failure: On nasal cannula . 5. Acute metabolic encephalopathy. 6. Sacral decubitus ulcer. 7. DM type 2. Subjective Date of service: 07/15/18 Interval history: Patient was seen and examined at the bedside. Objective - Vital Signs Vital signs: Vital Signs - 12hr 07/14/18 07/14/18 07/14/18 20:23 20:43 20:52 Temperature 98.1 F Pulse Rate 112 H Pulse Rate [ Anterior Bilateral Throughout] Pulse Rate [ 109 H Posterior Bilateral Throughout] Pulse Rate [ Right Radial] Respiratory Rate Respiratory Rate [Anterior Bilateral Throughout] Respiratory 20 Rate [Posterior Bilateral Throughout] Blood Pressure Blood Pressure 120/66 [Left] O2 Sat by Pulse 99 94 Oximetry 07/14/18 07/14/18 07/14/18 20:54 23:32 23:39 Temperature 98.8 F Pulse Rate 112 H 111 H Pulse Rate [ Anterior Bilateral Throughout] Pulse Rate [ 114 H Posterior Bilateral Throughout] Pulse Rate [ Right Radial] Respiratory 15 Rate Respiratory Rate [Anterior Bilateral Throughout] Respiratory 20 Rate [Posterior Bilateral Throughout] Blood Pressure 124/64 Blood Pressure [Left] O2 Sat by Pulse 90 Oximetry 07/14/18 07/15/18 07/15/18 23:41 03:56 07:09 Temperature 97.8 F Pulse Rate 94 H Pulse Rate [ 89 Anterior Bilateral Throughout] Pulse Rate [ Posterior Bilateral Throughout] Pulse Rate [ 112 H Right Radial] Respiratory 20 15 Rate Respiratory 18 Rate [Anterior Bilateral Throughout] Respiratory Rate [Posterior Bilateral Throughout] Blood Pressure 127/61 Blood Pressure [Left] O2 Sat by Pulse 97 90 98 Oximetry - General Appearance General appearance: well-developed, appears stated age, cachectic, other (not in distress) EENT: ATNC, PERRL, hearing intact Neck: other (Trachea midline) Respiratory: Present: Clear to Ascultation Cardiology: regular, S1S2, no murmurs Gastrointestinal: normoactive bowel sounds, no tenderness Integumentary: ulcer (R LE) Neurologic: other (follows command, able to move all 4 extremities, able to tell his name) Musculoskeletal: other (L AKA, R LE contractures [id number]) - Lab 07/15/18 12:37 07/15/18 04:01 Most recent lab results Calcium 7.9 mg/dL (8.4-10.2) L 07/15/18 04:01 Phosphorus 4.00 mg/dL (2.5-4.5) 07/14/18 04:01 Magnesium 2.00 mg/dL (1.7-2.3) 07/14/18 04:01 66.5 mg/dL (0.1-20.0) H 07/13/18 16:30 44 mmol/L 07/13/18 16:30 Medications & Allergies - Medications Allergies/Adverse Reactions: Allergies No Known Allergies Allergy (Verified 06/21/15 09:22) Home Medications: Home Medications Medication Instructions Recorded Confirmed Last Taken Type Metoprolol [Lopressor TAB] 12.5 mg PO BID 08/03/14 07/12/18 07/24/14 History amLODIPine [Norvasc] 5 mg PO DAILY #0 08/03/14 07/12/18 07/24/14 History 5 AtorvaSTATin [Lipitor] 10 mg PO QHS 06/21/15 07/12/18 Unknown History Gabapentin [Neurontin] 100 mg PO BID 06/21/15 07/12/18 Unknown History Tamsulosin [Flomax] 0.4 mg PO DAILY 08/12/15 07/12/18 Unknown History traMADol [Ultram] 50 mg PO BID PRN 08/12/15 07/12/18 Unknown History Acetaminophen [Tylenol] 1,000 mg PO Q12HR 07/12/18 07/12/18 Unknown History Aspirin [Adult Aspirin] 81 mg PO DAILY 07/12/18 07/12/18 Unknown History Citalopram [celeXA] 10 mg PO QAM 07/12/18 07/12/18 Unknown History Losartan [Cozaar] 25 mg PO QDAY 07/12/18 07/12/18 Unknown History Mirtazapine [Remeron] 15 mg PO QHS 07/12/18 07/12/18 Unknown History Multivit,Calc,Mins/Iron/Folic 1 each PO DAILY 07/12/18 07/12/18 Unknown History [Thera-M Caplet] Sennosides Tab [Senokot] 17.2 mg PO HS 07/12/18 07/12/18 Unknown History Active Medications: Generic Name Dose Route Start Last Admin Trade Name Freq PRN Reason Stop Dose Admin Acetaminophen 650 mg 07/12/18 21:52 Tylenol PO Q4H PRN Pain MILD(1-3)/Fever >100.5/SIMONS Albuterol 2.5 mg 07/12/18 21:54 Proventil IH Q4HRT PRN Shortness Of Breath Albuterol/Ipratropium 1 ampul 07/13/18 08:00 07/15/18 07:09 Duoneb *Not For Prn Use* IH 1 ampul QIDRT LIVIA Administration Aspirin 81 mg 07/12/18 22:00 07/14/18 09:51 Halfprin Ec PO 81 mg DAILY LIVIA Administration Atorvastatin Calcium 10 mg 07/12/18 22:00 07/14/18 21:36 Lipitor PO 10 mg QHS LIVIA Administration Citalopram Hydrobromide 10 mg 07/13/18 10:00 07/14/18 09:50 Celexa PO 10 mg QAM LIVIA Administration Famotidine 10 mg 07/12/18 22:30 07/14/18 21:33 Pepcid PO 10 mg BID LIVIA Administration Ceftriaxone Sodium 2 gm in 100 mls @ 200 mls/hr 07/12/18 22:00 07/14/18 21:32 Rocephin/Ns 2 Gm/100 Ml IV 200 mls/hr Q24HR@2200 LIVIA Administration Protocol Azithromycin 500 mg/ Sodium 250 mls @ 250 mls/hr 07/12/18 22:00 07/14/18 23:30 Chloride IV 250 mls/hr Q24HR@2200 LIVIA Administration Dextrose 1,000 mls @ 75 mls/hr 07/13/18 09:00 07/14/18 17:10 D5w IV 75 mls/hr DIRECT LIVIA Administration Metronidazole 500 mg in 100 mls @ 100 mls/hr 07/14/18 18:00 07/15/18 02:11 Flagyl 500 Mg/100 Ml IV 100 mls/hr Q8H LIVIA Administration Protocol Insulin Human Lispro 0 unit 07/13/18 07:30 07/14/18 21:36 Humalog SUB-Q 3 unit ACHS LIVIA Administration Protocol Methylprednisolone Sodium Succinate 40 mg 07/13/18 18:00 07/15/18 05:28 Solu-Medrol IV 40 mg Q12H LIVIA Administration Mirtazapine 15 mg 07/12/18 22:00 07/14/18 21:33 Remeron PO 15 mg QHS LIVIA Administration Morphine Sulfate 2 mg 07/12/18 21:53 07/13/18 17:54 Morphine IV 2 mg Q4H PRN Administration Pain, Moderate (4-6) Ondansetron HCl 4 mg 07/12/18 21:52 Zofran IV Q8H PRN Nausea And Vomiting Oxycodone/Acetaminophen 1 tab 07/12/18 21:53 07/15/18 00:27 Percocet 5/325 PO 1 tab Q6H PRN Administration Pain, Moderate (4-6) Sodium Chloride 10 ml 07/12/18 22:00 07/14/18 23:28 Sodium Chloride Flush Syringe 10 Ml IV 10 ml BID LIVIA Administration Sodium Chloride 10 ml 07/12/18 21:52 Sodium Chloride Flush Syringe 10 Ml IV PRN PRN LINE FLUSH Tamsulosin HCl 0.4 mg 07/13/18 22:00 07/14/18 21:34 Flomax PO 0.4 mg QHS LIVIA Administration
[2018-07-15] MEDS ORDERED: POTASSIUM CHLORIDE FEEDTUBE ONE (09:00)
[2018-07-15] MEDS: HumaLOG SUB-Q SCH ×4 (09:05→22:10)
[2018-07-15] MEDS: HALFPRIN EC PO SCH (09:47)
[2018-07-15] MEDS: celeXA PO SCH (09:47)
[2018-07-15] MEDS: PEPCID PO SCH ×2 (09:47→22:10)
[2018-07-15] MEDS: SODIUM CHLORIDE FLUSH SYRINGE 10 ML IV SCH ×2 (09:48→22:11)
--- NOTE | 2018-07-15 10:33 | Progress Note ---
Assessment and Plan Assessment and plan: Patient is a 63 yo man from [facility] (I believe based upon 2016 records) MD with a plethora of severe co-morbidities including pad s/p left AKA, hypertension, COPD, diet controlled DM type 2, Dementia, MDD, CAD, BPH and CVA with aphasia, quadriplegia/leg contractures who presented to [facility] with fever s, sob, confusion * pCXR conclusion: New/increased left more than right basilar hazy opacities/pneumonias -Sepsis due to bilateral pneumonia, UTI and skin infection: treat with IV abx, consulted ID, input noted, abx adjusted -Acute hypoxic respiratory failure [id number] NRB: weaned to nasal canula 02, continue nebs -Acute metabolic encephalopathy as above -Drop in H/H: stop sq heparin -Hypernatremia: change IVF -AE COPD: treated with iv steroids, abx and nebs -Acidosis: treat with IVF -ARF, Atn+vasomotor nephropathy: stopped motrin, stopped losartan, give ivf, monitor bmp closely, Nephrology consulted -Severe Protein Calorie malnutrition, poa, bmi 16.5, albumin 1.9: 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 worsening hypernatremia, increase d5W to 100ml/hr, await Nephrology input hgb 7.2-->7.1-->6.9 today, repeat h/h History Interval history: Patient was seen and examined. Follow-up on current diagnosis of FEVER. No overnight events reported to me. Imaging, nursing note, chart, labs and old chart reviewed. Hospitalist Physical - Physical exam Narrative exam: Gen: cachetic, ill appearing, chronically disable, no acute respiratory distress, NAD, Orientated x 1 HEENT: NCAT, EOMI, PERRL, OP Clear Neck: supple, no adenopathy, no thyromegaly, no JVD CVS/Heart: Regular tachycardia, normal S1S2, pulses present bilaterally Chest/Lungs: coarse bs bilateral, diminished bs bilateral, Symmetrical chest expansion, good air entry bilaterally GI/Abdomen: soft, NTND, good bowel sounds, no guarding or rebound /Bladder: no suprapubic tenderness, no CVA or paraspinal tenderness Extermity/Skin: multiple different areas of skin breakdowns, see admission photos, MSK: left AKA, contracted legs, Neuro: CN 2-12 grossly intact, doesn't follow all commands Psych: confused - Constitutional Vitals: Temp Pulse Resp BP Pulse Ox 97.2 F L 104 H 20 144/76 94 07/15/18 08:36 07/15/18 08:32 07/15/18 08:32 07/15/18 08:32 07/15/18 08:32 Results - Labs CBC & Chem 7: 07/15/18 04:01 07/15/18 04:01 Labs: Laboratory Last Values WBC 8.8 K/mm3 (4.5-11.0) 07/15/18 04:01 RBC 2.26 M/mm3 (3.65-5.03) L 07/15/18 04:01 Hgb 6.9 gm/dl (11.8-15.2) L 07/15/18 04:01 Hct 20.9 % (35.5-45.6) L 07/15/18 04:01 MCV 93 fl (84-94) 07/15/18 04:01 MCH 31 pg (28-32) 07/15/18 04:01 MCHC 33 % (32-34) 07/15/18 04:01 RDW 17.4 % (13.2-15.2) H 07/15/18 04:01 Plt Count 113 K/mm3 (140-440) L 07/15/18 04:01 Add Manual Diff Complete 07/13/18 04:22 Total Counted 100 07/13/18 04:22 Seg Neutrophils % Cuprous Chloride Helper 07/13/18 04:22 Seg Neuts % (Manual) 65.0 % (40.0-70.0) 07/13/18 04:22 30.0 % 07/13/18 04:22 3.0 % (13.4-35.0) L 07/13/18 04:22 Reactive Lymphs % (Man) 0 % 07/13/18 04:22 2.0 % (0.0-7.3) 07/13/18 04:22 0 % (0.0-4.3) 07/13/18 04:22 0 % (0.0-1.8) 07/13/18 04:22 0 % 07/13/18 04:22 0 % 07/13/18 04:22 0 % 07/13/18 04:22 0 % 07/13/18 04:22 Nucleated RBC % Not Reportable 07/13/18 04:22 Seg Neutrophils # Man 2.9 K/mm3 (1.8-7.7) 07/13/18 04:22 Band Neutrophils # 1.4 K/mm3 07/13/18 04:22 0.1 K/mm3 (1.2-5.4) L 07/13/18 04:22 Abs React Lymphs (Man) 0.0 K/mm3 07/13/18 04:22 0.1 K/mm3 (0.0-0.8) 07/13/18 04:22 0.0 K/mm3 (0.0-0.4) 07/13/18 04:22 0.0 K/mm3 (0.0-0.1) 07/13/18 04:22 0.0 K/mm3 07/13/18 04:22 0.0 K/mm3 07/13/18 04:22 0.0 K/mm3 07/13/18 04:22 Blast Cells # 0.0 K/mm3 07/13/18 04:22 WBC Morphology Not Reportable 07/13/18 04:22 Hypersegmented Neuts Not Reportable 07/13/18 04:22 Hyposegmented Neuts Not Reportable 07/13/18 04:22 Hypogranular Neuts Not Reportable 07/13/18 04:22 Not Reportable 07/13/18 04:22 Not Reportable 07/13/18 04:22 Not Reportable 07/13/18 04:22 1+ 07/13/18 04:22 Not Reportable 07/13/18 04:22 Not Reportable 07/13/18 04:22 Consistent w auto 07/13/18 04:22 Not Reportable 07/13/18 04:22 Plt Clumps, EDTA Not Reportable 07/13/18 04:22 Not Reportable 07/13/18 04:22 Not Reportable 07/13/18 04:22 Not Reportable 07/13/18 04:22 Plt Morphology Comment Not Reportable 07/13/18 04:22 RBC Morphology Not Reportable 07/13/18 04:22 Dimorphic RBCs Not Reportable 07/13/18 04:22 Not Reportable 07/13/18 04:22 1+ 07/13/18 04:22 Not Reportable 07/13/18 04:22 1+ 07/13/18 04:22 Not Reportable 07/13/18 04:22 Not Reportable 07/13/18 04:22 Not Reportable 07/13/18 04:22 Not Reportable 07/13/18 04:22 Not Reportable 07/13/18 04:22 Not Reportable 07/13/18 04:22 Not Reportable 07/13/18 04:22 Not Reportable 07/13/18 04:22 Not Reportable 07/13/18 04:22 Not Reportable 07/13/18 04:22 Not Reportable 07/13/18 04:22 Not Reportable 07/13/18 04:22 Not Reportable 07/13/18 04:22 Not Reportable 07/13/18 04:22 Not Reportable 07/13/18 04:22 Acanthocytes (Spur) Not Reportable 07/13/18 04:22 Rouleaux Not Reportable 07/13/18 04:22 Not Reportable 07/13/18 04:22 Not Reportable 07/13/18 04:22 Not Reportable 07/13/18 04:22 Not Reportable 07/13/18 04:22 Hem Pathologist Commnt No 07/13/18 04:22 PT 19.4 Sec. (12.2-14.9) H 07/12/18 12:03 INR 1.53 (0.87-1.13) H 07/12/18 12:03 VBG pH 7.320 (7.320-7.420) 07/12/18 12:03 Sodium 150 mmol/L (137-145) H 07/15/18 04:01 Potassium 3.2 mmol/L (3.6-5.0) L 07/15/18 04:01 Chloride 118.2 mmol/L (98-107) H 07/15/18 04:01 Carbon Dioxide 18 mmol/L (22-30) L 07/15/18 04:01 17 mmol/L 07/15/18 04:01 BUN 60 mg/dL (9-20) H 07/15/18 04:01 2.5 mg/dL (0.8-1.5) H 07/15/18 04:01 Estimated GFR 26 ml/min 07/15/18 04:01 24 % 07/15/18 04:01 Glucose 166 mg/dL (75-100) H 07/15/18 04:01 POC Glucose 185 (70-105) H 07/15/18 07:33 6.3 % (4-6) H 07/12/18 22:46 Lactic Acid 2.40 mmol/L (0.7-2.0) H* 07/12/18 19:38 Calcium 7.9 mg/dL (8.4-10.2) L 07/15/18 04:01 Phosphorus 4.00 mg/dL (2.5-4.5) 07/14/18 04:01 Magnesium 2.00 mg/dL (1.7-2.3) 07/14/18 04:01 Iron 10 ug/dL (49-181) L 07/12/18 22:46 TIBC 90 mcg/dL (250-450) L 07/12/18 22:46 % Saturation 11.11 % 07/12/18 22:46 73 mg/dl (180-329) L 07/12/18 22:46 0.40 mg/dL (0.1-1.2) 07/13/18 04:22 AST 37 units/L (5-40) 07/13/18 04:22 ALT 13 units/L (7-56) 07/13/18 04:22 43 units/L (35-129) 07/13/18 04:22 24.60 mg/dL (0.00-1.30) H 07/14/18 09:18 5.2 g/dL (6.3-8.2) L 07/13/18 04:22 1.9 g/dL (3.9-5) L 07/13/18 04:22 0.6 % 07/13/18 04:22 Vitamin B12 563.8 pg/mL (211-911) 07/12/18 22:46 Barbara (Yellow) 07/12/18 Unknown Cloudy (Clear) 07/12/18 Unknown 5.0 (5.0-7.0) 07/12/18 Unknown Ur Specific [place] 1.016 (1.003-1.030) 07/12/18 Unknown 30 mg/dl mg/dL (Negative) 07/12/18 Unknown Neg mg/dL (Negative) 07/12/18 Unknown Neg mg/dL (Negative) 07/12/18 Unknown Mod (Negative) 07/12/18 Unknown Neg (Negative) 07/12/18 Unknown Neg (Negative) 07/12/18 Unknown < 2.0 mg/dL (<2.0) 07/12/18 Unknown Ur Leukocyte Esterase Lg (Negative) 07/12/18 Unknown 41.0 /HPF (0.0-6.0) H 07/12/18 Unknown 35.0 /HPF (0.0-6.0) 07/12/18 Unknown U Epithel Cells (Auto) 1.0 /HPF (0-13.0) 07/12/18 Unknown 2+ /HPF (Negative) 07/12/18 Unknown Few /HPF 07/12/18 Unknown 2+ /HPF 07/12/18 Unknown None seen (None Seen) 07/13/18 16:30 66.5 mg/dL (0.1-20.0) H 07/13/18 16:30 44 mmol/L 07/13/18 16:30 Random Vancomycin 11.0 ug/mL (0-40.0) 07/14/18 04:01 Active Medications - Current Medications Current Medications: Generic Name Dose Route Start Last Admin Trade Name Freq PRN Reason Stop Dose Admin Acetaminophen 650 mg 07/12/18 21:52 Tylenol PO Q4H PRN Pain MILD(1-3)/Fever >100.5/SIMONS Albuterol 2.5 mg 07/12/18 21:54 Proventil IH Q4HRT PRN Shortness Of Breath Albuterol/Ipratropium 1 ampul 07/13/18 08:00 07/15/18 07:09 Duoneb *Not For Prn Use* IH 1 ampul QIDRT LIVIA Administration Aspirin 81 mg 07/12/18 22:00 07/15/18 09:47 Halfprin Ec PO 81 mg DAILY LIVIA Administration Atorvastatin Calcium 10 mg 07/12/18 22:00 07/14/18 21:36 Lipitor PO 10 mg QHS LIVIA Administration Citalopram Hydrobromide 10 mg 07/13/18 10:00 07/15/18 09:47 Celexa PO 10 mg QAM LIVIA Administration Famotidine 10 mg 07/12/18 22:30 07/15/18 09:47 Pepcid PO 10 mg BID LIVIA Administration Ceftriaxone Sodium 2 gm in 100 mls @ 200 mls/hr 07/12/18 22:00 07/14/18 21:32 Rocephin/Ns 2 Gm/100 Ml IV 200 mls/hr Q24HR@2200 LIVIA Administration Protocol Azithromycin 500 mg/ Sodium 250 mls @ 250 mls/hr 07/12/18 22:00 07/14/18 23:30 Chloride IV 250 mls/hr Q24HR@2200 LIVIA Administration Metronidazole 500 mg in 100 mls @ 100 mls/hr 07/14/18 18:00 07/15/18 02:11 Flagyl 500 Mg/100 Ml IV 100 mls/hr Q8H LIVIA Administration Protocol Dextrose 1,000 mls @ 100 mls/hr 07/15/18 11:00 D5w IV DIRECT LIVIA Insulin Human Lispro 0 unit 07/13/18 07:30 07/15/18 09:05 Humalog SUB-Q 2 unit ACHS [facility] Administration Protocol Methylprednisolone Sodium Succinate 40 mg 07/13/18 18:00 07/15/18 05:28 Solu-Medrol IV 40 mg Q12H LIVIA Administration Mirtazapine 15 mg 07/12/18 22:00 07/14/18 21:33 Remeron PO 15 mg QHS LIVIA Administration Morphine Sulfate 2 mg 07/12/18 21:53 07/13/18 17:54 Morphine IV 2 mg Q4H PRN Administration Pain, Moderate (4-6) Ondansetron HCl 4 mg 07/12/18 21:52 Zofran IV Q8H PRN Nausea And Vomiting Oxycodone/Acetaminophen 1 tab 07/12/18 21:53 07/15/18 00:27 Percocet 5/325 PO 1 tab Q6H PRN Administration Pain, Moderate (4-6) Sodium Chloride 10 ml 07/12/18 22:00 07/15/18 09:48 Sodium Chloride Flush Syringe 10 Ml IV 10 ml BID LIVIA Administration Sodium Chloride 10 ml 07/12/18 21:52 Sodium Chloride Flush Syringe 10 Ml IV PRN PRN LINE FLUSH Tamsulosin HCl 0.4 mg 07/13/18 22:00 07/14/18 21:34 Flomax PO 0.4 mg QHS LIVIA Administration Nutrition/Malnutrition Assess - Dietary Evaluation Nutrition/Malnutrition Findings: Nutrition Notes Start: 07/13/18 09:22 Freq: Status: Active Protocol: Document 07/13/18 09:22 LP (Rec: 07/13/18 09:31 LP [id number]) Nutrition Notes 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 Pt In pain and on breathing tx a time of visit. Pt appears to have some temporal and clavial wasting. Consumed 10% of breakfast this AM and did drink juice. Burn Absent Trauma Absent #1 Nutrition Diagnosis Malnutrition Etiology COPD, dementia As Evidenced by Signs and Symptoms BMI=16.5, stage 4 sacral wound , consuming less than 50% of meals Is patient on ventilator? No Is Patient Ambulatory and/or Out of Bed No REE-([facility]-confined to bed) 1563.396 Kcal/Kg value to use for calculation 40 Approximate Energy Requirements Using 2031 kcal/Kg Calculation Used for Recommendations Kcal/kg Additional Notes Protein needs are 61-76g (1.2- 1.5g/kg) Fluid needs are 1ml/kcal Nutrition Intervention Change Diet Order: Continue cardiac diet Add Supplement/Snack (indicate name/kcal Nepro shake BID /protein ) Provides kCal: 850 Provides Protein (gm) 38 Goal #1 Meet at least 80% of kcal and protein needs Anticipated Discharge Needs: cardiac diet with ONS BID Follow-Up By: 07/15/18 Additional Comments Follow for intakes, ONS tolerance
[2018-07-15] MEDS: D5W 1,000 ML IV SCH ×2 (10:57→23:23)
--- NOTE | 2018-07-15 11:01 | Consultation ---
History of Present Illness - Reason for Consult Consult date: 07/15/18 sepsis Requesting physician: NONA GUTHRIE - History of Present Illness This patient is a 63 year old male with a past medical history of hypertension, COPD, diet controlled DM type 2, Dementia, CAD, BPH, MDD, CVA with aphasia, s/p left AKA, quadraplegia who presented to [facility] on 07/12/18 with fevers, SOB and confusion. On admission WBC 7.5, Creatinine 4.4, Glucose 174, NA 150, CRP 24.60, Temperature 100.8, HR 124, BP 80/50. U/A with pyuria WBC 41 large LE, Chest Xray shows New/increased left more than right basilar hazy opacities/pneumonias. Blood cultures were drawn and show no growth to date. Patient unable to provide history due to mental status. Past History Past Medical History: diabetes, hypertension, hyperlipidemia, stroke Medications and Allergies Allergies Allergy/AdvReac Type Severity Reaction Status Date / Time No Known Allergies Allergy Verified 06/21/15 09:22 Home Medications Medication Instructions Recorded Confirmed Last Taken Type Metoprolol [Lopressor TAB] 12.5 mg PO BID 08/03/14 07/12/18 07/24/14 History amLODIPine [Norvasc] 5 mg PO DAILY #0 08/03/14 07/12/18 07/24/14 History 5 AtorvaSTATin [Lipitor] 10 mg PO QHS 06/21/15 07/12/18 Unknown History Gabapentin [Neurontin] 100 mg PO BID 06/21/15 07/12/18 Unknown History Tamsulosin [Flomax] 0.4 mg PO DAILY 08/12/15 07/12/18 Unknown History traMADol [Ultram] 50 mg PO BID PRN 08/12/15 07/12/18 Unknown History Acetaminophen [Tylenol] 1,000 mg PO Q12HR 07/12/18 07/12/18 Unknown History Aspirin [Adult Aspirin] 81 mg PO DAILY 07/12/18 07/12/18 Unknown History Citalopram [celeXA] 10 mg PO QAM 07/12/18 07/12/18 Unknown History Losartan [Cozaar] 25 mg PO QDAY 07/12/18 07/12/18 Unknown History Mirtazapine [Remeron] 15 mg PO QHS 07/12/18 07/12/18 Unknown History Multivit,Calc,Mins/Iron/Folic 1 each PO DAILY 07/12/18 07/12/18 Unknown History [Thera-M Caplet] Sennosides Tab [Senokot] 17.2 mg PO HS 07/12/18 07/12/18 Unknown History Active Meds: Active Medications Acetaminophen (Tylenol) 650 mg PO Q4H PRN PRN Reason: Pain MILD(1-3)/Fever >100.5/SIMONS Albuterol (Proventil) 2.5 mg IH Q4HRT PRN PRN Reason: Shortness Of Breath Albuterol/Ipratropium (Duoneb *Not For Prn Use*) 1 ampul IH QIDRT [facility] Last Admin: 07/15/18 07:09 Dose: 1 ampul Documented by: Aspirin (Halfprin Ec) 81 mg PO DAILY [facility] Last Admin: 07/15/18 09:47 Dose: 81 mg Documented by: Atorvastatin Calcium (Lipitor) 10 mg PO QHS [facility] Last Admin: 07/14/18 21:36 Dose: 10 mg Documented by: Citalopram Hydrobromide (Celexa) 10 mg PO QAM [facility] Last Admin: 07/15/18 09:47 Dose: 10 mg Documented by: Famotidine (Pepcid) 10 mg PO BID [facility] Last Admin: 07/15/18 09:47 Dose: 10 mg Documented by: Ceftriaxone Sodium (Rocephin/Ns 2 Gm/100 Ml) 2 gm in 100 mls @ 200 mls/hr IV Q24HR@2200 [facility]; Protocol Last Admin: 07/14/18 21:32 Dose: 200 mls/hr Documented by: Azithromycin 500 mg/ Sodium (Chloride) 250 mls @ 250 mls/hr IV Q24HR@2200 [facility] Last Admin: 07/14/18 23:30 Dose: 250 mls/hr Documented by: Metronidazole (Flagyl 500 Mg/100 Ml) 500 mg in 100 mls @ 100 mls/hr IV Q8H [facility]; Protocol Last Admin: 07/15/18 10:53 Dose: 100 mls/hr Documented by: Dextrose (D5w) 1,000 mls @ 100 mls/hr IV DIRECT [facility] Last Admin: 07/15/18 10:57 Dose: 100 mls/hr Documented by: Insulin Human Lispro (Humalog) 0 unit SUB-Q ACHS [facility]; Protocol Last Admin: 07/15/18 09:05 Dose: 2 unit Documented by: Methylprednisolone Sodium Succinate (Solu-Medrol) 40 mg IV Q12H [facility] Last Admin: 07/15/18 05:28 Dose: 40 mg Documented by: Mirtazapine (Remeron) 15 mg PO QHS [facility] Last Admin: 07/14/18 21:33 Dose: 15 mg Documented by: Morphine Sulfate (Morphine) 2 mg IV Q4H PRN PRN Reason: Pain, Moderate (4-6) Last Admin: 07/13/18 17:54 Dose: 2 mg Documented by: Ondansetron HCl (Zofran) 4 mg IV Q8H PRN PRN Reason: Nausea And Vomiting Oxycodone/Acetaminophen (Percocet 5/325) 1 tab PO Q6H PRN PRN Reason: Pain, Moderate (4-6) Last Admin: 07/15/18 00:27 Dose: 1 tab Documented by: Sodium Chloride (Sodium Chloride Flush Syringe 10 Ml) 10 ml IV BID [facility] Last Admin: 07/15/18 09:48 Dose: 10 ml Documented by: Sodium Chloride (Sodium Chloride Flush Syringe 10 Ml) 10 ml IV PRN PRN PRN Reason: LINE FLUSH Tamsulosin HCl (Flomax) 0.4 mg PO QHS [facility] Last Admin: 07/14/18 21:34 Dose: 0.4 mg Documented by: Physical Examination - Physical Exam Narrative exam: Constitutional: Awake, Dementia. Mild distress observed. Cachexia. Head, Ears, Nose: Normocephalic, atraumatic. External ears, nose normal Eyes: Conjunctivae/corneas clear. No icterus. No ptosis. Neck: Supple, no meningeal signs Oral: unable to access Cardiovascular: S1, S2 normal. Respiratory: Good air entry, clear to auscultation bilaterally. On supplemental O2, 4L/nc GI: Soft, non-tender; bowel sounds normal. No peritoneal signs Musculoskeletal: .Right foot ulceration, no odor or drainage. + Dressing. Sacral decubitus ulcer, Scrotal abrasions, Penis skin lesions, left knee abrasions, + Left BKA Skin: same as above Hem/Lymphatic: No palpable cervical or supraclavicular nodes. No lymphangitis Psych: Dementia. Tearful Neurological: Awake. Dementia.Garbled speech - Constitutional Vitals: Vital Signs Temp Pulse Resp BP Pulse Ox 97.2 F L 104 H 20 144/76 94 07/15/18 08:36 07/15/18 08:32 07/15/18 08:32 07/15/18 08:32 07/15/18 08:32 Temperature -Last 24 Hours Temperature 97.2 F Temperature 97.8 F Temperature 98.8 F Temperature 98.1 F Temperature 98.1 F Results - Labs CBC & Chem 7: 07/15/18 12:37 07/15/18 04:01 Labs: Abnormal lab results 07/14/18 07/14/18 07/14/18 Range/Units 12:39 18:09 19:16 RBC (3.65-5.03) M/mm3 Hgb (11.8-15.2) gm/dl Hct (35.5-45.6) % RDW (13.2-15.2) % Plt Count (140-440) K/mm3 Sodium (137-145) mmol/L Potassium (3.6-5.0) mmol/L Chloride (98-107) mmol/L Carbon Dioxide (22-30) mmol/L BUN (9-20) mg/dL Creatinine (0.8-1.5) mg/dL Glucose (75-100) mg/dL POC Glucose 193 H 248 H 202 H (70-105) Calcium (8.4-10.2) mg/dL 07/15/18 07/15/18 07/15/18 Range/Units 04:01 04:01 07:33 RBC 2.26 L (3.65-5.03) M/mm3 Hgb 6.9 L (11.8-15.2) gm/dl Hct 20.9 L (35.5-45.6) % RDW 17.4 H (13.2-15.2) % Plt Count 113 L (140-440) K/mm3 Sodium 150 H (137-145) mmol/L Potassium 3.2 L (3.6-5.0) mmol/L Chloride 118.2 H (98-107) mmol/L Carbon Dioxide 18 L (22-30) mmol/L BUN 60 H (9-20) mg/dL Creatinine 2.5 H (0.8-1.5) mg/dL Glucose 166 H (75-100) mg/dL POC Glucose 185 H (70-105) Calcium 7.9 L (8.4-10.2) mg/dL - Imaging and Cardiology Chest x-ray: report reviewed ( New/increased left more than right basilar hazy opacities/pneumonias.) Assessment and Plan Imaging 07/13/18 Renal ultrasound: Increased renal parenchymal echotexture with parenchymal thinning consistent with chronic medical renal disease. Cultures: 07/12/18 Blood : no growth to date 07/12/18 Urine: 10-10k of Usual skin zan 07/13/18 MRSA PCR: negative A/P: 63 year old male wtih a past medical history of hypertension, COPD, diet controlled DM type 2, Dementia, CAD, BPH, MDD, CVA with aphasia, s/p left AKA, quadraplegia who presented to [facility] on 07/12/18 with fevers, SOB and confusion. Admitted with: 1. Sepsis: evidenced by temperature, tachycardia and hypotension. Etiology mulitfactorial. Chest xray shows Bilateral pneumonia. U/A with Pyruria, Xray rig ht foot possible Osteomylitis, Multiple wounds. No leukocytosis. Blood cultures show no growth to date, CRP 24.60. Currently being treated with Azithromycin, Ceftriaxone, Vancomycin and Flagyl. 2. Bilateral Pneumonia: Chest Xray shows New/increased left more than right basilar hazy opacities/pneumonias. 3. UTI: U/S with Pyuria WBC 41 large LE. Urine culture 10-10K of usual skin zan 4. Possible Osteomylitis Right foot: Right foot ulceration on plantar surface. Right foot xray shows a dislocation of the first digit dorsally.AP view demonstrates poorly defined cortical margin along medial aspect of first metatarsal head which could represent osteomyelitis. Will order MRI w/o contrast. 5. Acute Hypoxic Respiratory Failure: on supplemental O2 6. Acute metabolic Encephalopathy: Admission NA 150 7. Multiple wounds: Sacral decubitus ulcer, Scrotal abrasions, Penis skin lesions, left knee abrasions, Wound and surgical consults ordered. 8. DM type 2: uncontrolled glucose, A1C 6.3, Admission glucose 174 9. Severe protein malnutrition: 11. LUANA: antibiotics renally dosed. Nephrology following Plan: -follow-up blood cultures -order wound care consult -Order MRI to evaluate for osteomylitis -Surgical Consult -Continue Azithromycin, Ceftriaxone, Vancomycin and Flagyl for now -Order Wound care consult [facility] M: [phone] O:[phone]
[2018-07-15 13:43] LABS: Hematocrit 22.7 % (35.5-45.6); Hemoglobin 7.6 gm/dl (11.8-15.2)
--- NOTE | 2018-07-15 14:25 | Consultation ---
History of Present Illness Consult date: 07/15/18 Chief complaint: Right foot ulcer - History of present illness History of present illness: 63 yo male with medial right foot ulcer and sacral pressure ulcer. He is s/p a left AKA and is non-communicative. Past History Past Medical History: diabetes, hypertension, hyperlipidemia, stroke Medications and Allergies Allergies Allergy/AdvReac Type Severity Reaction Status Date / Time No Known Allergies Allergy Verified 06/21/15 09:22 Home Medications Medication Instructions Recorded Confirmed Last Taken Type Metoprolol [Lopressor TAB] 12.5 mg PO BID 08/03/14 07/12/18 07/24/14 History amLODIPine [Norvasc] 5 mg PO DAILY #0 08/03/14 07/12/18 07/24/14 History 5 AtorvaSTATin [Lipitor] 10 mg PO QHS 06/21/15 07/12/18 Unknown History Gabapentin [Neurontin] 100 mg PO BID 06/21/15 07/12/18 Unknown History Tamsulosin [Flomax] 0.4 mg PO DAILY 08/12/15 07/12/18 Unknown History traMADol [Ultram] 50 mg PO BID PRN 08/12/15 07/12/18 Unknown History Acetaminophen [Tylenol] 1,000 mg PO Q12HR 07/12/18 07/12/18 Unknown History Aspirin [Adult Aspirin] 81 mg PO DAILY 07/12/18 07/12/18 Unknown History Citalopram [celeXA] 10 mg PO QAM 07/12/18 07/12/18 Unknown History Losartan [Cozaar] 25 mg PO QDAY 07/12/18 07/12/18 Unknown History Mirtazapine [Remeron] 15 mg PO QHS 07/12/18 07/12/18 Unknown History Multivit,Calc,Mins/Iron/Folic 1 each PO DAILY 07/12/18 07/12/18 Unknown History [Thera-M Caplet] Sennosides Tab [Senokot] 17.2 mg PO HS 07/12/18 07/12/18 Unknown History Active Meds: Active Medications Acetaminophen (Tylenol) 650 mg PO Q4H PRN PRN Reason: Pain MILD(1-3)/Fever >100.5/SIMONS Albuterol (Proventil) 2.5 mg IH Q4HRT PRN PRN Reason: Shortness Of Breath Albuterol/Ipratropium (Duoneb *Not For Prn Use*) 1 ampul IH QIDRT [facility] Last Admin: 07/15/18 12:04 Dose: 1 ampul Documented by: Aspirin (Halfprin Ec) 81 mg PO DAILY [facility] Last Admin: 07/15/18 09:47 Dose: 81 mg Documented by: Atorvastatin Calcium (Lipitor) 10 mg PO QHS [facility] Last Admin: 07/14/18 21:36 Dose: 10 mg Documented by: Citalopram Hydrobromide (Celexa) 10 mg PO QAM [facility] Last Admin: 07/15/18 09:47 Dose: 10 mg Documented by: Famotidine (Pepcid) 10 mg PO BID [facility] Last Admin: 07/15/18 09:47 Dose: 10 mg Documented by: Ceftriaxone Sodium (Rocephin/Ns 2 Gm/100 Ml) 2 gm in 100 mls @ 200 mls/hr IV Q24HR@2200 [facility]; Protocol Last Admin: 07/14/18 21:32 Dose: 200 mls/hr Documented by: Azithromycin 500 mg/ Sodium (Chloride) 250 mls @ 250 mls/hr IV Q24HR@2200 [facility] Last Admin: 07/14/18 23:30 Dose: 250 mls/hr Documented by: Metronidazole (Flagyl 500 Mg/100 Ml) 500 mg in 100 mls @ 100 mls/hr IV Q8H [facility]; Protocol Last Admin: 07/15/18 10:53 Dose: 100 mls/hr Documented by: Dextrose (D5w) 1,000 mls @ 100 mls/hr IV DIRECT [facility] Last Admin: 07/15/18 10:57 Dose: 100 mls/hr Documented by: Insulin Human Lispro (Humalog) 0 unit SUB-Q ACHS [facility]; Protocol Last Admin: 07/15/18 13:12 Dose: 3 unit Documented by: Methylprednisolone Sodium Succinate (Solu-Medrol) 40 mg IV Q12H [facility] Last Admin: 07/15/18 05:28 Dose: 40 mg Documented by: Mirtazapine (Remeron) 15 mg PO QHS [facility] Last Admin: 07/14/18 21:33 Dose: 15 mg Documented by: Morphine Sulfate (Morphine) 2 mg IV Q4H PRN PRN Reason: Pain, Moderate (4-6) Last Admin: 07/13/18 17:54 Dose: 2 mg Documented by: Ondansetron HCl (Zofran) 4 mg IV Q8H PRN PRN Reason: Nausea And Vomiting Oxycodone/Acetaminophen (Percocet 5/325) 1 tab PO Q6H PRN PRN Reason: Pain, Moderate (4-6) Last Admin: 07/15/18 00:27 Dose: 1 tab Documented by: Sodium Chloride (Sodium Chloride Flush Syringe 10 Ml) 10 ml IV BID [facility] Last Admin: 07/15/18 09:48 Dose: 10 ml Documented by: Sodium Chloride (Sodium Chloride Flush Syringe 10 Ml) 10 ml IV PRN PRN PRN Reason: LINE FLUSH Tamsulosin HCl (Flomax) 0.4 mg PO QHS [facility] Last Admin: 07/14/18 21:34 Dose: 0.4 mg Documented by: Review of Systems ROS unobtainable: due to mental status Exam Vital Signs Temp Pulse Resp BP Pulse Ox 99.7 F H 124 H 16 80/50 95 07/12/18 12:12 07/12/18 12:12 07/12/18 12:12 07/12/18 12:12 07/12/18 12:12 - General physical appearance Positive: cathetic, chronically ill - Eyes Positive: PERRL, normal occular movement - ENT Positive: normal pinna, normal nares, normal mucosa, no hearing loss, no congestion - Neck Positive: no masses, no bruits, trachea midline, no venous distension - Respiratory Positive: normal expansion, normal respiratory effort, clear to auscultation - Cardiovascular Rhythm: regular Heart Sounds: Present: S1 & S2. Absent: rub, click - Extremities Extremities: abnormal (S/p left AKA with right knee contracture) - Breasts Breasts: deferred - Abdomen Abdomen: Present: soft, bowel sounds normal. Absent: tender, distended Hernia: none - Genitourinary Male Genitourinary: scrotal edema - Integumentary other (There is a 3 X 3 cm ulcer over the right medial foot and the 1st metatarsal head. The 1st metatarsal head is proturding through this ulcer. There is no significant drainage or associated cellulitis. The sacral area is remarkable for a 6 X 6 cm stage 1-2 pressure changes and a 1.5 X 3 cm stage 2-3 sacral pressure ulceration. This smaller ulceration is without obvious i nfection.) - Psychiatric Psychiatric: other (Non-communicative) Results - Labs 07/15/18 12:37 07/15/18 04:01 Abnormal lab results 07/14/18 07/14/18 07/15/18 Range/Units 18:09 19:16 04:01 RBC 2.26 L (3.65-5.03) M/mm3 Hgb 6.9 L (11.8-15.2) gm/dl Hct 20.9 L (35.5-45.6) % RDW 17.4 H (13.2-15.2) % Plt Count 113 L (140-440) K/mm3 Sodium (137-145) mmol/L Potassium (3.6-5.0) mmol/L Chloride (98-107) mmol/L Carbon Dioxide (22-30) mmol/L BUN (9-20) mg/dL Creatinine (0.8-1.5) mg/dL Glucose (75-100) mg/dL POC Glucose 248 H 202 H (70-105) Calcium (8.4-10.2) mg/dL 07/15/18 07/15/18 07/15/18 Range/Units 04:01 07:33 11:57 RBC (3.65-5.03) M/mm3 Hgb (11.8-15.2) gm/dl Hct (35.5-45.6) % RDW (13.2-15.2) % Plt Count (140-440) K/mm3 Sodium 150 H (137-145) mmol/L Potassium 3.2 L (3.6-5.0) mmol/L Chloride 118.2 H (98-107) mmol/L Carbon Dioxide 18 L (22-30) mmol/L BUN 60 H (9-20) mg/dL Creatinine 2.5 H (0.8-1.5) mg/dL Glucose 166 H (75-100) mg/dL POC Glucose 185 H 236 H (70-105) Calcium 7.9 L (8.4-10.2) mg/dL 07/15/18 Range/Units 12:37 RBC (3.65-5.03) M/mm3 Hgb 7.6 L (11.8-15.2) gm/dl Hct 22.7 L (35.5-45.6) % RDW (13.2-15.2) % Plt Count (140-440) K/mm3 Sodium (137-145) mmol/L Potassium (3.6-5.0) mmol/L Chloride (98-107) mmol/L Carbon Dioxide (22-30) mmol/L BUN (9-20) mg/dL Creatinine (0.8-1.5) mg/dL Glucose (75-100) mg/dL POC Glucose (70-105) Calcium (8.4-10.2) mg/dL Diabetes panel 07/15/18 Range/Units 04:01 Sodium 150 H (137-145) mmol/L Potassium 3.2 L (3.6-5.0) mmol/L Chloride 118.2 H (98-107) mmol/L Carbon Dioxide 18 L (22-30) mmol/L BUN 60 H (9-20) mg/dL Creatinine 2.5 H (0.8-1.5) mg/dL Glucose 166 H (75-100) mg/dL Calcium 7.9 L (8.4-10.2) mg/dL Calcium panel 07/15/18 Range/Units 04:01 Calcium 7.9 L (8.4-10.2) mg/dL Pituitary panel 07/15/18 Range/Units 04:01 Sodium 150 H (137-145) mmol/L Potassium 3.2 L (3.6-5.0) mmol/L Chloride 118.2 H (98-107) mmol/L Carbon Dioxide 18 L (22-30) mmol/L BUN 60 H (9-20) mg/dL Creatinine 2.5 H (0.8-1.5) mg/dL Glucose 166 H (75-100) mg/dL Calcium 7.9 L (8.4-10.2) mg/dL Adrenal panel 07/15/18 Range/Units 04:01 Sodium 150 H (137-145) mmol/L Potassium 3.2 L (3.6-5.0) mmol/L Chloride 118.2 H (98-107) mmol/L Carbon Dioxide 18 L (22-30) mmol/L BUN 60 H (9-20) mg/dL Creatinine 2.5 H (0.8-1.5) mg/dL Glucose 166 H (75-100) mg/dL Calcium 7.9 L (8.4-10.2) mg/dL Assessment and Plan - Patient Problems (1) Pressure ulcer of right foot, stage 4 Current Visit: Yes Status: Acute Plan to address problem: 1) I would recommend right AKA as the pt is non-ambulatory and is already s/p a left AKA. I called his brother at [phone] (number on his face sheet) and this number has been disconnected. I also called the pt's home number at [phone] (on face sheet) and this number has also been disconnected. Please let me know when you obtain a contact that is this pt's medical POA. In the meantime, I would recommend off loading his sacral and right foot areas, continued local wound care and intense nutritional support.
[2018-07-15] MEDS: ZITHROMAX 500 MG in NACL 0.9% 250ML 250 ML IV SCH (22:09)
[2018-07-15] MEDS: ROCEPHIN/NS 2 GM/100 ML 2 GM/100 ML BAG IV SCH (22:09)
[2018-07-15] MEDS: REMERON PO SCH (22:10)
[2018-07-15] MEDS: FLOMAX PO SCH (22:10)
[2018-07-16] MEDS: FLAGYL 500 MG/100 ML 500 MG/100 ML BAG IV SCH ×3 (02:39→18:16)
[2018-07-16 05:14] LABS: Hematocrit 21.1 % (35.5-45.6); Mean Corpuscular HGB Conc 33 % (32-34); Mean Corpuscular Volume 92 fl (84-94); Platelet Count 106 K/mm3 (140-440); Red Cell Distribution Width 17.3 % (13.2-15.2)
[2018-07-16 05:32] LABS: Calcium 7.7 mg/dL (8.4-10.2)
[2018-07-16] MEDS: SOLU-Medrol IV SCH (06:18)
[2018-07-16] MEDS: DUONEB *Not for PRN Use IH SCH ×3 (08:21→20:14)
[2018-07-16] MEDS: HumaLOG SUB-Q SCH ×4 (09:46→22:10)
[2018-07-16] MEDS: HALFPRIN EC PO SCH (09:49)
[2018-07-16] MEDS: celeXA PO SCH (09:49)
[2018-07-16] MEDS: PEPCID PO SCH ×2 (09:49→22:09)
[2018-07-16] MEDS: PERCOCET 5/325 PO PRN (09:49)
--- NOTE | 2018-07-16 09:54 | Progress Note ---
Assessment and Plan Imaging 07/13/18 Renal ultrasound: Increased renal parenchymal echotexture with parenchymal thinning consistent with chronic medical renal disease. Cultures: 07/12/18 Blood : no growth 07/12/18 Urine: 10-10k of Usual skin zan 07/13/18 MRSA PCR: negative A/P: 63 year old male wtih a past medical history of hypertension, COPD, diet controlled DM type 2, Dementia, CAD, BPH, MDD, CVA with aphasia, s/p left AKA, quadraplegia who presented to [facility] on 07/12/18 with fevers, SOB and confusion. Admitted with: 1. Sepsis: Resolved. Etiology mulitfactorial. Chest xray shows Bilateral pneumonia. U/A with Pyruria, Xray right foot possible Osteomylitis, Multiple wounds. No leukocytosis. Blood cultures show no growth to date, CRP 24.60. C urrently being treated with Azithromycin, Ceftriaxone, Vancomycin and Flagyl. 2. Bilateral Pneumonia: Chest Xray shows New/increased left more than right basilar hazy opacities/pneumonias. 3. UTI: U/S with Pyuria WBC 41 large LE. Urine culture 10-10K of usual skin zan 4. Possible Osteomylitis Right foot: 3 X 3 cm ulcer over the right medial foot and the 1st metatarsal head. Right foot xray shows a dislocation of the first digit dorsally.AP view demonstrates poorly defined cortical margin along medial aspect of first metatarsal head which could represent osteomyelitis. MRI cancelled, patient unable to extend foot. Surgical recommendation for Right BKA - Dr. Robles following 5. Acute Hypoxic Respiratory Failure: on supplemental O2 6. Acute metabolic Encephalopathy: Admission NA 150 7. Multiple wounds: Sacral decubitus ulcer, Scrotal abrasions, Penis skin lesions, left knee abrasions, Wound and surgical consults ordered. 8. DM type 2: uncontrolled glucose, A1C 6.3, Admission glucose 174 9. Severe protein malnutrition: 11. LUANA: antibiotics renally dosed. Nephrology following Plan: -follow-up blood cultures -continue wound care -MRI cancelled- patient unable to extend foot -continue Azithromycin 500mg IV every 24 hours, D4 -continue Ceftriaxone 2 gms IV every 24, D4 -continue Flagyl 500mg IV every 4 hours, ,D2 -continue Vancomycin PK dosing, D4 -Order Wound care consult -Right BKA recommended by surgery, case management to obtain contact number for consent Winnie Hdz NP [facility] M: [phone] O:[phone] Subjective Date of service: 07/16/18 Interval history: Patient seen and examined. Acute distress observed. Tearful. No family at bedside. No Fevers. Objective - Exam Narrative Exam: Constitutional: Awake, Dementia. Mild distress observed. Cachexia. Head, Ears, Nose: Normocephalic, atraumatic. External ears, nose normal Eyes: Conjunctivae/corneas clear. No icterus. No ptosis. Neck: Supple, no meningeal signs Oral: unable to access Cardiovascular: S1, S2 normal. Respiratory: Good air entry, clear to auscultation bilaterally. GI: Soft, non-tender; bowel sounds normal. No peritoneal signs Musculoskeletal: .Right foot ulceration, no odor or drainage. + Dressing. Sacral decubitus ulcer, Scrotal abrasions, Penis skin lesions, left knee abrasions, + Left BKA Skin: same as above Hem/Lymphatic: No palpable cervical or supraclavicular nodes. No lymphangitis Psych: Dementia. Tearful Neurological: Awake. Dementia.Garbled speech - Constitutional Vitals: Vital Signs Temp Pulse Resp BP Pulse Ox 97.7 F 100 H 18 173/88 96 07/16/18 07:46 07/16/18 08:21 07/16/18 08:21 07/16/18 07:46 07/16/18 08:24 Temperature -Last 24 Hours Temperature 97.7 F Temperature 97.7 F Temperature 97.8 F Temperature 98.5 F - Labs CBC & Chem 7: 07/16/18 03:56 07/16/18 03:56 Labs: Abnormal lab results 07/15/18 07/15/18 07/15/18 Range/Units 11:57 12:37 16:48 RBC (3.65-5.03) M/mm3 Hgb 7.6 L (11.8-15.2) gm/dl Hct 22.7 L (35.5-45.6) % RDW (13.2-15.2) % Plt Count (140-440) K/mm3 Potassium (3.6-5.0) mmol/L Chloride (98-107) mmol/L Carbon Dioxide (22-30) mmol/L BUN (9-20) mg/dL Creatinine (0.8-1.5) mg/dL Glucose (75-100) mg/dL POC Glucose 236 H 170 H (70-105) Calcium (8.4-10.2) mg/dL 07/15/18 07/16/18 07/16/18 Range/Units 21:47 03:56 03:56 RBC 2.30 L (3.65-5.03) M/mm3 Hgb 7.0 L (11.8-15.2) gm/dl Hct 21.1 L (35.5-45.6) % RDW 17.3 H (13.2-15.2) % Plt Count 106 L (140-440) K/mm3 Potassium 3.4 L (3.6-5.0) mmol/L Chloride 113.3 H (98-107) mmol/L Carbon Dioxide 18 L (22-30) mmol/L BUN 55 H (9-20) mg/dL Creatinine 2.1 H (0.8-1.5) mg/dL Glucose 182 H (75-100) mg/dL POC Glucose 216 H (70-105) Calcium 7.7 L (8.4-10.2) mg/dL 07/16/18 Range/Units 07:33 RBC (3.65-5.03) M/mm3 Hgb (11.8-15.2) gm/dl Hct (35.5-45.6) % RDW (13.2-15.2) % Plt Count (140-440) K/mm3 Potassium (3.6-5.0) mmol/L Chloride (98-107) mmol/L Carbon Dioxide (22-30) mmol/L BUN (9-20) mg/dL Creatinine (0.8-1.5) mg/dL Glucose (75-100) mg/dL POC Glucose 144 H (70-105) Calcium (8.4-10.2) mg/dL
--- NOTE | 2018-07-16 10:19 | Progress Note ---
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 - patient was not documented as confused per ER records and h/P and he is aphasic at his baseline /Anemia of CD: stopped sq heparin, monitor h/H, r/o GI cause /Hypernatremia: improved with IVF, likely from dehydration /Acute Exacerbation COPD: treated with iv steroids, abx and nebs /Acute kidney injury, - likely vasomotor nephropathy: stopped motrin, stopped losartan, cont ivf, monitor bmp closely, Nephrology consulted /Severe Protein Calorie malnutrition, - poa, bmi 16.5, albumin 1.9: consulted Heading Repairer /Sacral decubitus ulcer at least stage 3/scrotal abrasions/penis skin lesions/left knee abrasions: wound care consulted /DM type 2, borderline, a1c 6.3: continue to monitor bmp /Thrombocytopenia, heparin stopped, monitor cbc closely Brief History Patient is a 63 yo man from [place] with h/o s/p left AKA, hypertension, COPD, diet controlled DM type 2, Dementia, MDD, CAD, BPH and CVA with aphasia, quadriplegia/leg contractures who presented to [facility] ED with fevers, sob. * pCXR conclusion: New/increased left more than right basilar hazy opacities/pneumonias Hospitalist Physical Gen: cachetic, ill appearing, chronically disable, no acute respiratory distress, NAD, Orientated x 1 HEENT: NCAT, EOMI, PERRL, OP Clear Neck: supple, no adenopathy, no thyromegaly, no JVD CVS/Heart: Regular tachycardia, normal S1S2, pulses present bilaterally Chest/Lungs: coarse bs bilateral, diminished bs bilateral, Symmetrical chest expansion, good air entry bilaterally GI/Abdomen: soft, NTND, good bowel sounds, no guarding or rebound /Bladder: no suprapubic tenderness, no CVA or paraspinal tenderness Extermity/Skin: multiple different areas of skin breakdowns, see admission photos, MSK: left AKA, contracted legs, Neuro: CN 2-12 grossly intact, follow simple commands, communicate with gesture Psych: unable to assess Subjective Date of service: 07/16/18 Interval history: Patient seen and examined. Medical records and medication list reviewed. No acute event overnight noted by the RN. Patient is aphasic but about to complicate with a gesture. Patient is tolerating diet. Discussed plan of care at bedside with patient. Objective - Constitutional Vitals: Vital Signs - 12hr 07/15/18 07/16/18 07/16/18 23:40 04:13 07:46 Temperature 97.8 F 97.7 F 97.7 F Pulse Rate 105 H 93 H Pulse Rate [ Anterior Bilateral Throughout] Pulse Rate [ Posterior Bilateral Throughout] Respiratory 18 17 18 Rate Respiratory Rate [Anterior Bilateral Throughout] Respiratory Rate [Posterior Bilateral Throughout] Blood Pressure 150/80 155/84 173/88 O2 Sat by Pulse 95 94 Oximetry 07/16/18 07/16/18 08:21 08:24 Temperature Pulse Rate Pulse Rate [ 100 H Anterior Bilateral Throughout] Pulse Rate [ 104 H Posterior Bilateral Throughout] Respiratory Rate Respiratory 18 Rate [Anterior Bilateral Throughout] Respiratory 20 Rate [Posterior Bilateral Throughout] Blood Pressure O2 Sat by Pulse 96 Oximetry - Labs CBC & Chem 7: 07/16/18 03:56 07/17/18 03:57 Labs: Abnormal lab results 07/15/18 07/15/18 07/15/18 Range/Units 11:57 12:37 16:48 RBC (3.65-5.03) M/mm3 Hgb 7.6 L (11.8-15.2) gm/dl Hct 22.7 L (35.5-45.6) % RDW (13.2-15.2) % Plt Count (140-440) K/mm3 Potassium (3.6-5.0) mmol/L Chloride (98-107) mmol/L Carbon Dioxide (22-30) mmol/L BUN (9-20) mg/dL Creatinine (0.8-1.5) mg/dL Glucose (75-100) mg/dL POC Glucose 236 H 170 H (70-105) Calcium (8.4-10.2) mg/dL 07/15/18 07/16/18 07/16/18 Range/Units 21:47 03:56 03:56 RBC 2.30 L (3.65-5.03) M/mm3 Hgb 7.0 L (11.8-15.2) gm/dl Hct 21.1 L (35.5-45.6) % RDW 17.3 H (13.2-15.2) % Plt Count 106 L (140-440) K/mm3 Potassium 3.4 L (3.6-5.0) mmol/L Chloride 113.3 H (98-107) mmol/L Carbon Dioxide 18 L (22-30) mmol/L BUN 55 H (9-20) mg/dL Creatinine 2.1 H (0.8-1.5) mg/dL Glucose 182 H (75-100) mg/dL POC Glucose 216 H (70-105) Calcium 7.7 L (8.4-10.2) mg/dL 07/16/18 Range/Units 07:33 RBC (3.65-5.03) M/mm3 Hgb (11.8-15.2) gm/dl Hct (35.5-45.6) % RDW (13.2-15.2) % Plt Count (140-440) K/mm3 Potassium (3.6-5.0) mmol/L Chloride (98-107) mmol/L Carbon Dioxide (22-30) mmol/L BUN (9-20) mg/dL Creatinine (0.8-1.5) mg/dL Glucose (75-100) mg/dL POC Glucose 144 H (70-105) Calcium (8.4-10.2) mg/dL
--- NOTE | 2018-07-16 10:55 | Progress Note ---
Assessment and Plan 1. Acute kidney injury: Vasomotor LUANA in the setting of volume depletion. Continue IV fluids. Renal function is improving. Renal US was negative for hydro. Avoid nephrotoxic agents. Meds dosage based on GFR. 2. FEN: Volume depletion, continue IV fluids. Hypernatremia, improving on IV D5W. Metabolic acidosis, continue IV fluids. Monitor lytes. 3. Sepsis: Bilateral pneumonia, UTI and skin infection. IV Abx. 4. Acute hypoxic respiratory failure. 5. Acute metabolic encephalopathy. 6. Sacral decubitus ulcer. 7. DM type 2. Subjective Date of service: 07/16/18 Interval history: Patient was seen and examined at the bedside. Objective - Vital Signs Vital signs: Vital Signs - 12hr 07/15/18 07/16/18 07/16/18 23:40 04:13 07:46 Temperature 97.8 F 97.7 F 97.7 F Pulse Rate 105 H 93 H Pulse Rate [ Anterior Bilateral Throughout] Pulse Rate [ Posterior Bilateral Throughout] Respiratory 18 17 18 Rate Respiratory Rate [Anterior Bilateral Throughout] Respiratory Rate [Posterior Bilateral Throughout] Blood Pressure 150/80 155/84 173/88 O2 Sat by Pulse 95 94 Oximetry 07/16/18 07/16/18 08:21 08:24 Temperature Pulse Rate Pulse Rate [ 100 H Anterior Bilateral Throughout] Pulse Rate [ 104 H Posterior Bilateral Throughout] Respiratory Rate Respiratory 18 Rate [Anterior Bilateral Throughout] Respiratory 20 Rate [Posterior Bilateral Throughout] Blood Pressure O2 Sat by Pulse 96 Oximetry - General Appearance General appearance: well-developed, appears stated age, other (not in distress) EENT: ATNC, PERRL Neck: other (Trachea midline) Respiratory: Present: Clear to Ascultation Cardiology: regular, S1S2, no murmurs Gastrointestinal: normoactive bowel sounds, no tenderness, no distended Integumentary: decubiti Neurologic: other (able to follow commands, tell his name) Musculoskeletal: other (no edema, L AKA, R LE contractures) - Lab 07/16/18 03:56 07/16/18 03:56 Most recent lab results Calcium 7.7 mg/dL (8.4-10.2) L 07/16/18 03:56 Phosphorus 4.00 mg/dL (2.5-4.5) 07/14/18 04:01 Magnesium 2.00 mg/dL (1.7-2.3) 07/14/18 04:01 66.5 mg/dL (0.1-20.0) H 07/13/18 16:30 44 mmol/L 07/13/18 16:30 Medications & Allergies - Medications Allergies/Adverse Reactions: Allergies No Known Allergies Allergy (Verified 06/21/15 09:22) Home Medications: Home Medications Medication Instructions Recorded Confirmed Last Taken Type Metoprolol [Lopressor TAB] 12.5 mg PO BID 08/03/14 07/12/18 07/24/14 History amLODIPine [Norvasc] 5 mg PO DAILY #0 08/03/14 07/12/18 07/24/14 History 5 AtorvaSTATin [Lipitor] 10 mg PO QHS 06/21/15 07/12/18 Unknown History Gabapentin [Neurontin] 100 mg PO BID 06/21/15 07/12/18 Unknown History Tamsulosin [Flomax] 0.4 mg PO DAILY 08/12/15 07/12/18 Unknown History traMADol [Ultram] 50 mg PO BID PRN 08/12/15 07/12/18 Unknown History Acetaminophen [Tylenol] 1,000 mg PO Q12HR 07/12/18 07/12/18 Unknown History Aspirin [Adult Aspirin] 81 mg PO DAILY 07/12/18 07/12/18 Unknown History Citalopram [celeXA] 10 mg PO QAM 07/12/18 07/12/18 Unknown History Losartan [Cozaar] 25 mg PO QDAY 07/12/18 07/12/18 Unknown History Mirtazapine [Remeron] 15 mg PO QHS 07/12/18 07/12/18 Unknown History Multivit,Calc,Mins/Iron/Folic 1 each PO DAILY 07/12/18 07/12/18 Unknown History [Thera-M Caplet] Sennosides Tab [Senokot] 17.2 mg PO HS 07/12/18 07/12/18 Unknown History Active Medications: Generic Name Dose Route Start Last Admin Trade Name Freq PRN Reason Stop Dose Admin Acetaminophen 650 mg 07/12/18 21:52 Tylenol PO Q4H PRN Pain MILD(1-3)/Fever >100.5/SIMONS Albuterol 2.5 mg 07/12/18 21:54 Proventil IH Q4HRT PRN Shortness Of Breath Albuterol/Ipratropium 1 ampul 07/13/18 08:00 07/16/18 08:21 Duoneb *Not For Prn Use* IH 1 ampul QIDRT LIVIA Administration Aspirin 81 mg 07/12/18 22:00 07/16/18 09:49 Halfprin Ec PO 81 mg DAILY LIVIA Administration Atorvastatin Calcium 10 mg 07/12/18 22:00 07/15/18 22:10 Lipitor PO 10 mg QHS LIVIA Administration Citalopram Hydrobromide 10 mg 07/13/18 10:00 07/16/18 09:49 Celexa PO 10 mg QAM LIVIA Administration Famotidine 10 mg 07/12/18 22:30 07/16/18 09:49 Pepcid PO 10 mg BID LIVIA Administration Ceftriaxone Sodium 2 gm in 100 mls @ 200 mls/hr 07/12/18 22:00 07/15/18 22:09 Rocephin/Ns 2 Gm/100 Ml IV 200 mls/hr Q24HR@2200 LIVIA Administration Protocol Azithromycin 500 mg/ Sodium 250 mls @ 250 mls/hr 07/12/18 22:00 07/15/18 22:09 Chloride IV 250 mls/hr Q24HR@2200 LIVIA Administration Metronidazole 500 mg in 100 mls @ 100 mls/hr 07/14/18 18:00 07/16/18 02:39 Flagyl 500 Mg/100 Ml IV 100 mls/hr Q8H LIVIA Administration Protocol Dextrose 1,000 mls @ 100 mls/hr 07/15/18 11:00 07/15/18 23:23 D5w IV 100 mls/hr DIRECT LIVIA Administration Insulin Human Lispro 0 unit 07/13/18 07:30 07/16/18 09:46 Humalog SUB-Q Not Given ACHS LIVIA Protocol Methylprednisolone Sodium Succinate 40 mg 07/13/18 18:00 07/16/18 06:18 Solu-Medrol IV 40 mg Q12H LIVIA Administration Mirtazapine 15 mg 07/12/18 22:00 07/15/18 22:10 Remeron PO 15 mg QHS LIVIA Administration Morphine Sulfate 2 mg 07/12/18 21:53 07/13/18 17:54 Morphine IV 2 mg Q4H PRN Administration Pain, Moderate (4-6) Ondansetron HCl 4 mg 07/12/18 21:52 Zofran IV Q8H PRN Nausea And Vomiting Oxycodone/Acetaminophen 1 tab 07/12/18 21:53 07/16/18 09:49 Percocet 5/325 PO 1 tab Q6H PRN Administration Pain, Moderate (4-6) Sodium Chloride 10 ml 07/12/18 22:00 07/15/18 22:11 Sodium Chloride Flush Syringe 10 Ml IV 10 ml BID LIVIA Administration Sodium Chloride 10 ml 07/12/18 21:52 Sodium Chloride Flush Syringe 10 Ml IV PRN PRN LINE FLUSH Tamsulosin HCl 0.4 mg 07/13/18 22:00 07/15/18 22:10 Flomax PO 0.4 mg QHS LIVIA Administration
[2018-07-16] MEDS: K-DUR PO SCH ×2 (11:43→18:16)
[2018-07-16] MEDS ORDERED: PROVENTIL IH PRN (12:00)
--- NOTE | 2018-07-16 14:02 | Progress Note ---
Assessment and Plan - Patient Problems (1) Pressure ulcer of right foot, stage 4 Current Visit: Yes Status: Acute Plan to address problem: 1) I spoke with the pt's brother, Travis who reports that the pt is his own medical POA. I informed Travis that, in my opinion, the pt is NOT competent at the present. I have asked the outsole caser to discuss this competency issue with the Hospitalist team. Once a medical POA is established, I will discuss with the POA my recommendation to proceed with a right AKA. 2) Continue local wound care 3) Continue intense nutritional support Subjective Date of service: 07/16/18 Patient Reports: Positive: no new complaints Objective Vital Signs - 12hr 07/16/18 07/16/18 07/16/18 04:13 07:46 08:21 Temperature 97.7 F 97.7 F Pulse Rate 93 H Pulse Rate [ 100 H Anterior Bilateral Throughout] Pulse Rate [ 104 H Posterior Bilateral Throughout] Respiratory 17 18 Rate Respiratory 18 Rate [Anterior Bilateral Throughout] Respiratory 20 Rate [Posterior Bilateral Throughout] Blood Pressure 155/84 173/88 O2 Sat by Pulse 94 Oximetry 07/16/18 07/16/18 08:24 11:20 Temperature Pulse Rate Pulse Rate [ Anterior Bilateral Throughout] Pulse Rate [ Posterior Bilateral Throughout] Respiratory Rate Respiratory Rate [Anterior Bilateral Throughout] Respiratory Rate [Posterior Bilateral Throughout] Blood Pressure O2 Sat by Pulse 96 96 Oximetry - Psychiatric oriented to person (Oriented to person only. He did not answer when I asked him where he was or what year it was.) - Labs 07/16/18 03:56 07/16/18 03:56 Diabetes panel 07/16/18 Range/Units 03:56 Sodium 145 (137-145) mmol/L Potassium 3.4 L (3.6-5.0) mmol/L Chloride 113.3 H (98-107) mmol/L Carbon Dioxide 18 L (22-30) mmol/L BUN 55 H (9-20) mg/dL Creatinine 2.1 H (0.8-1.5) mg/dL Glucose 182 H (75-100) mg/dL Calcium 7.7 L (8.4-10.2) mg/dL Calcium panel 07/16/18 Range/Units 03:56 Calcium 7.7 L (8.4-10.2) mg/dL Pituitary panel 07/16/18 Range/Units 03:56 Sodium 145 (137-145) mmol/L Potassium 3.4 L (3.6-5.0) mmol/L Chloride 113.3 H (98-107) mmol/L Carbon Dioxide 18 L (22-30) mmol/L BUN 55 H (9-20) mg/dL Creatinine 2.1 H (0.8-1.5) mg/dL Glucose 182 H (75-100) mg/dL Calcium 7.7 L (8.4-10.2) mg/dL Adrenal panel 07/16/18 Range/Units 03:56 Sodium 145 (137-145) mmol/L Potassium 3.4 L (3.6-5.0) mmol/L Chloride 113.3 H (98-107) mmol/L Carbon Dioxide 18 L (22-30) mmol/L BUN 55 H (9-20) mg/dL Creatinine 2.1 H (0.8-1.5) mg/dL Glucose 182 H (75-100) mg/dL Calcium 7.7 L (8.4-10.2) mg/dL
--- NOTE | 2018-07-16 16:07 | Event Note ---
Date: 07/16/18 Physician Attestation: I have personally seen and examined patient. I personally discussed and directed assessment and management with AUTOMATIC CENTRIFUGAL STATION OPERATOR Andreina. Dr Robles planning AKA. MRI cannot be done which is ok since patient is to have an AKA. Nicol Rueda MD Infectious Diseases Fuel Efficient Aircraft Designer [facility], [place], [facility] ([facility]) M [phone] O [phone]
--- NOTE | 2018-07-16 18:13 | Consultation ---
History of Present Illness Consult date: 07/16/18 Chief complaint: medical decision making capacity History of present illness: This is a 63 YO M admitted on 07/12 for fever, sob. Pt has documented history of stroke with aphasia and dementia. Pt will follow simple commands, sounds like he is saying his name is Rashi. Past History Past Medical History: diabetes, hypertension, hyperlipidemia, stroke Medications and Allergies Allergies Allergy/AdvReac Type Severity Reaction Status Date / Time No Known Allergies Allergy Verified 06/21/15 09:22 Home Medications Medication Instructions Recorded Confirmed Last Taken Type Metoprolol [Lopressor TAB] 12.5 mg PO BID 08/03/14 07/12/18 07/24/14 History amLODIPine [Norvasc] 5 mg PO DAILY #0 08/03/14 07/12/18 07/24/14 History 5 AtorvaSTATin [Lipitor] 10 mg PO QHS 06/21/15 07/12/18 Unknown History Gabapentin [Neurontin] 100 mg PO BID 06/21/15 07/12/18 Unknown History Tamsulosin [Flomax] 0.4 mg PO DAILY 08/12/15 07/12/18 Unknown History traMADol [Ultram] 50 mg PO BID PRN 08/12/15 07/12/18 Unknown History Acetaminophen [Tylenol] 1,000 mg PO Q12HR 07/12/18 07/12/18 Unknown History Aspirin [Adult Aspirin] 81 mg PO DAILY 07/12/18 07/12/18 Unknown History Citalopram [celeXA] 10 mg PO QAM 07/12/18 07/12/18 Unknown History Losartan [Cozaar] 25 mg PO QDAY 07/12/18 07/12/18 Unknown History Mirtazapine [Remeron] 15 mg PO QHS 07/12/18 07/12/18 Unknown History Multivit,Calc,Mins/Iron/Folic 1 each PO DAILY 07/12/18 07/12/18 Unknown History [Thera-M Caplet] Sennosides Tab [Senokot] 17.2 mg PO HS 07/12/18 07/12/18 Unknown History Active Meds: Active Medications Acetaminophen (Tylenol) 650 mg PO Q4H PRN PRN Reason: Pain MILD(1-3)/Fever >100.5/SIMONS Albuterol (Proventil) 2.5 mg IH Q4HRT PRN PRN Reason: Shortness Of Breath Albuterol/Ipratropium (Duoneb *Not For Prn Use*) 1 ampul IH TIDRT [facility] Last Admin: 07/16/18 14:01 Dose: 1 ampul Documented by: Aspirin (Halfprin Ec) 81 mg PO DAILY [facility] Last Admin: 07/16/18 09:49 Dose: 81 mg Documented by: Atorvastatin Calcium (Lipitor) 10 mg PO QHS [facility] Last Admin: 07/15/18 22:10 Dose: 10 mg Documented by: Citalopram Hydrobromide (Celexa) 10 mg PO QAM [facility] Last Admin: 07/16/18 09:49 Dose: 10 mg Documented by: Famotidine (Pepcid) 10 mg PO BID [facility] Last Admin: 07/16/18 09:49 Dose: 10 mg Documented by: Ceftriaxone Sodium (Rocephin/Ns 2 Gm/100 Ml) 2 gm in 100 mls @ 200 mls/hr IV Q24HR@2200 [facility]; Protocol Last Admin: 07/15/18 22:09 Dose: 200 mls/hr Documented by: Azithromycin 500 mg/ Sodium (Chloride) 250 mls @ 250 mls/hr IV Q24HR@2200 [facility] Last Admin: 07/15/18 22:09 Dose: 250 mls/hr Documented by: Metronidazole (Flagyl 500 Mg/100 Ml) 500 mg in 100 mls @ 100 mls/hr IV Q8H [facility]; Protocol Last Admin: 07/16/18 11:54 Dose: 100 mls/hr Documented by: Dextrose (D5w) 1,000 mls @ 100 mls/hr IV DIRECT [facility] Last Admin: 07/15/18 23:23 Dose: 100 mls/hr Documented by: Insulin Human Lispro (Humalog) 0 unit SUB-Q ACHS [facility]; Protocol Last Admin: 07/16/18 09:46 Dose: Not Given Documented by: Methylprednisolone Sodium Succinate (Solu-Medrol) 40 mg IV Q24HR [facility] Mirtazapine (Remeron) 15 mg PO QHS [facility] Last Admin: 07/15/18 22:10 Dose: 15 mg Documented by: Morphine Sulfate (Morphine) 2 mg IV Q4H PRN PRN Reason: Pain, Moderate (4-6) Last Admin: 07/13/18 17:54 Dose: 2 mg Documented by: Ondansetron HCl (Zofran) 4 mg IV Q8H PRN PRN Reason: Nausea And Vomiting Oxycodone/Acetaminophen (Percocet 5/325) 1 tab PO Q6H PRN PRN Reason: Pain, Moderate (4-6) Last Admin: 07/16/18 09:49 Dose: 1 tab Documented by: Sodium Chloride (Sodium Chloride Flush Syringe 10 Ml) 10 ml IV BID [facility] Last Admin: 07/15/18 22:11 Dose: 10 ml Documented by: Sodium Chloride (Sodium Chloride Flush Syringe 10 Ml) 10 ml IV PRN PRN PRN Reason: LINE FLUSH Tamsulosin HCl (Flomax) 0.4 mg PO QHS [facility] Last Admin: 07/15/18 22:10 Dose: 0.4 mg Documented by: Review of Systems ROS unobtainable: due to mental status Physical Examination - Vital Signs Vital Signs: Vital Signs Temp Pulse Resp BP Pulse Ox 99.7 F H 124 H 16 80/50 95 07/12/18 12:12 07/12/18 12:12 07/12/18 12:12 07/12/18 12:12 07/12/18 12:12 - EENT EENT: Present: PERRL, mucous membranes moist - Respiratory Respiratory: Present: lungs clear - Cardiovascular Cardiovascular: Present: regular rate - Gastrointestinal Gastrointestinal: Present: normoactive bowel sounds - Integumentary Integumentary: Present: normal - Neurologic Cranial nerve examination: PERRL, EOMI, V1/V2/V3 grossly intact, face symmetric, tongue midline Speech examination: motor aphasia Motor examination - right side: 5/5: biceps, triceps, wrist flexion, wrist extension, coating machine feeder, hip flexors, knee extensors, dorsiflexion, toe extension (EHL), plantarflexion Motor examination - left side: 5/5: biceps, triceps, wrist flexion, wrist extension, coating machine feeder, hip flexors Detailed sensory examination: light touch Reflex and gait examination: other (amputee) - Psychiatric Psychiatric: Present: mood/affect appropriate Results - Laboratory Findings CBC and BMP: 07/16/18 03:56 07/16/18 03:56 Abnormal Lab Findings: Abnormal Labs 07/12/18 07/12/18 07/12/18 12:03 12:03 12:03 RBC 2.70 L Hgb 8.4 L Hct 25.9 L MCV 96 H RDW 17.2 H Plt Count Seg Neuts % (Manual) 77.0 H Lymphocytes % (Manual) 1.0 L Lymphocytes # (Manual) 0.1 L PT 19.4 H INR 1.53 H Sodium Potassium Chloride 111.6 H Carbon Dioxide 17 L BUN 62 H Creatinine 4.4 H Glucose 129 H POC Glucose Hemoglobin A1c Lactic Acid Calcium 7.7 L Iron TIBC Transferrin C-Reactive Protein Total Protein 5.9 L Albumin 2.0 L Urine WBC (Auto) Urine Creatinine 07/12/18 07/12/18 07/12/18 12:03 19:38 22:46 RBC Hgb Hct MCV RDW Plt Count Seg Neuts % (Manual) Lymphocytes % (Manual) Lymphocytes # (Manual) PT INR Sodium Potassium Chloride Carbon Dioxide BUN Creatinine Glucose POC Glucose Hemoglobin A1c 6.3 H Lactic Acid 2.30 H* 2.40 H* Calcium Iron TIBC Transferrin C-Reactive Protein Total Protein Albumin Urine WBC (Auto) Urine Creatinine 07/12/18 07/12/18 07/13/18 22:46 Unknown 04:22 RBC 2.34 L Hgb 7.2 L Hct 22.1 L MCV RDW 17.4 H Plt Count Seg Neuts % (Manual) Lymphocytes % (Manual) 3.0 L Lymphocytes # (Manual) 0.1 L PT INR Sodium Potassium Chloride Carbon Dioxide BUN Creatinine Glucose POC Glucose Hemoglobin A1c Lactic Acid Calcium Iron 10 L TIBC 90 L Transferrin 73 L C-Reactive Protein Total Protein Albumin Urine WBC (Auto) 41.0 H Urine Creatinine 07/13/18 07/13/18 07/13/18 04:22 08:30 12:14 RBC Hgb Hct MCV RDW Plt Count Seg Neuts % (Manual) Lymphocytes % (Manual) Lymphocytes # (Manual) PT INR Sodium 149 H Potassium Chloride 119.2 H Carbon Dioxide 16 L BUN 54 H Creatinine 3.6 H Glucose 117 H POC Glucose 174 H 188 H Hemoglobin A1c Lactic Acid Calcium 8.0 L Iron TIBC Transferrin C-Reactive Protein Total Protein 5.2 L Albumin 1.9 L Urine WBC (Auto) Urine Creatinine 07/13/18 07/13/18 07/13/18 16:30 17:57 21:31 RBC Hgb Hct MCV RDW Plt Count Seg Neuts % (Manual) Lymphocytes % (Manual) Lymphocytes # (Manual) PT INR Sodium Potassium Chloride Carbon Dioxide BUN Creatinine Glucose POC Glucose 190 H 169 H Hemoglobin A1c Lactic Acid Calcium Iron TIBC Transferrin C-Reactive Protein Total Protein Albumin Urine WBC (Auto) Urine Creatinine 66.5 H 07/14/18 07/14/18 07/14/18 04:01 07:26 09:18 RBC 2.29 L Hgb 7.1 L Hct 21.5 L MCV RDW 17.2 H Plt Count 132 L Seg Neuts % (Manual) Lymphocytes % (Manual) Lymphocytes # (Manual) PT INR Sodium 150 H Potassium Chloride 118.4 H Carbon Dioxide 16 L BUN 65 H Creatinine 3.0 H Glucose 168 H POC Glucose 179 H Hemoglobin A1c Lactic Acid Calcium 8.1 L Iron TIBC Transferrin C-Reactive Protein Total Protein Albumin Urine WBC (Auto) Urine Creatinine 07/14/18 07/14/18 07/14/18 09:18 12:39 18:09 RBC Hgb Hct MCV RDW Plt Count Seg Neuts % (Manual) Lymphocytes % (Manual) Lymphocytes # (Manual) PT INR Sodium Potassium Chloride Carbon Dioxide BUN Creatinine Glucose POC Glucose 193 H 248 H Hemoglobin A1c Lactic Acid Calcium Iron TIBC Transferrin C-Reactive Protein 24.60 H Total Protein Albumin Urine WBC (Auto) Urine Creatinine 07/14/18 07/15/18 07/15/18 19:16 04:01 04:01 RBC 2.26 L Hgb 6.9 L Hct 20.9 L MCV RDW 17.4 H Plt Count 113 L Seg Neuts % (Manual) Lymphocytes % (Manual) Lymphocytes # (Manual) PT INR Sodium 150 H Potassium 3.2 L Chloride 118.2 H Carbon Dioxide 18 L BUN 60 H Creatinine 2.5 H Glucose 166 H POC Glucose 202 H Hemoglobin A1c Lactic Acid Calcium 7.9 L Iron TIBC Transferrin C-Reactive Protein Total Protein Albumin Urine WBC (Auto) Urine Creatinine 07/15/18 07/15/18 07/15/18 07:33 11:57 12:37 RBC Hgb 7.6 L Hct 22.7 L MCV RDW Plt Count Seg Neuts % (Manual) Lymphocytes % (Manual) Lymphocytes # (Manual) PT INR Sodium Potassium Chloride Carbon Dioxide BUN Creatinine Glucose POC Glucose 185 H 236 H Hemoglobin A1c Lactic Acid Calcium Iron TIBC Transferrin C-Reactive Protein Total Protein Albumin Urine WBC (Auto) Urine Creatinine 07/15/18 07/15/18 07/16/18 16:48 21:47 03:56 RBC 2.30 L Hgb 7.0 L Hct 21.1 L MCV RDW 17.3 H Plt Count 106 L Seg Neuts % (Manual) Lymphocytes % (Manual) Lymphocytes # (Manual) PT INR Sodium Potassium Chloride Carbon Dioxide BUN Creatinine Glucose POC Glucose 170 H 216 H Hemoglobin A1c Lactic Acid Calcium Iron TIBC Transferrin C-Reactive Protein Total Protein Albumin Urine WBC (Auto) Urine Creatinine 07/16/18 07/16/18 07/16/18 03:56 07:33 12:51 RBC Hgb Hct MCV RDW Plt Count Seg Neuts % (Manual) Lymphocytes % (Manual) Lymphocytes # (Manual) PT INR Sodium Potassium 3.4 L Chloride 113.3 H Carbon Dioxide 18 L BUN 55 H Creatinine 2.1 H Glucose 182 H POC Glucose 144 H 176 H Hemoglobin A1c Lactic Acid Calcium 7.7 L Iron TIBC Transferrin C-Reactive Protein Total Protein Albumin Urine WBC (Auto) Urine Creatinine 07/16/18 15:57 RBC Hgb Hct MCV RDW Plt Count Seg Neuts % (Manual) Lymphocytes % (Manual) Lymphocytes # (Manual) PT INR Sodium Potassium Chloride Carbon Dioxide BUN Creatinine Glucose POC Glucose 215 H Hemoglobin A1c Lactic Acid Calcium Iron TIBC Transferrin C-Reactive Protein Total Protein Albumin Urine WBC (Auto) Urine Creatinine - Diagnostic Findings Additional findings: no brain imaging noted Assessment and Plan This is a 63 YO M with dementia, stroke and aphasia who has presented with questions regarding his medical decision making capacity. Medical decision making capacity is a determination made by psychiatry. Unclear about the extent of his dementia but will say he does appear to understand and is able to follow simple bedside commands. Please obtain psychiatric consult for further details.
[2018-07-16] MEDS: ZITHROMAX 500 MG in NACL 0.9% 250ML 250 ML IV SCH (22:00)
[2018-07-16] MEDS: REMERON PO SCH (22:09)
[2018-07-16] MEDS: ROCEPHIN/NS 2 GM/100 ML 2 GM/100 ML BAG IV SCH (22:09)
[2018-07-16] MEDS: FLOMAX PO SCH (22:09)
[2018-07-16] MEDS: SODIUM CHLORIDE FLUSH SYRINGE 10 ML IV SCH (22:10)
[2018-07-17] MEDS: FLAGYL 500 MG/100 ML 500 MG/100 ML BAG IV SCH ×3 (02:56→17:16)
[2018-07-17] MEDS: D5W 1,000 ML IV SCH ×2 (02:56→22:39)
[2018-07-17 05:39] LABS: Calcium 7.5 mg/dL (8.4-10.2)
[2018-07-17] MEDS: HumaLOG SUB-Q SCH ×4 (07:30→22:00)
[2018-07-17] MEDS: DUONEB *Not for PRN Use IH SCH ×3 (07:42→20:33)
--- NOTE | 2018-07-17 08:27 | Progress Note ---
Assessment and Plan 1. Acute kidney injury: Vasomotor LUANA in the setting of volume depletion. Continue IV fluids. Renal function is improving. Renal US was negative for hydro. Avoid nephrotoxic agents. Meds dosage based on GFR. 2. FEN: Volume depletion, continue IV fluids. Hypernatremia, improved. Metabolic acidosis, continue IV fluids. Replete Phos. Monitor lytes. 3. Sepsis: Bilateral pneumonia, UTI and skin infection. IV Abx. 4. Acute hypoxic respiratory failure. 5. Acute metabolic encephalopathy. 6. Sacral decubitus ulcer. 7. DM type 2. Subjective Date of service: 07/17/18 Interval history: Patient was seen and examined at the bedside. Objective - Vital Signs Vital signs: Vital Signs - 12hr 07/16/18 07/16/18 07/17/18 22:00 23:27 04:14 Temperature 98.2 F 98.5 F Pulse Rate 106 H 111 H 94 H Pulse Rate [ Anterior Bilateral Throughout] Pulse Rate [ 106 H Apical] Respiratory 18 18 Rate Respiratory Rate [Anterior Bilateral Throughout] Blood Pressure 157/75 137/74 O2 Sat by Pulse 98 95 95 Oximetry 07/17/18 07/17/18 07/17/18 07:42 07:48 07:56 Temperature Pulse Rate Pulse Rate [ 104 H 109 H Anterior Bilateral Throughout] Pulse Rate [ Apical] Respiratory Rate Respiratory 20 20 Rate [Anterior Bilateral Throughout] Blood Pressure O2 Sat by Pulse 96 100 Oximetry 07/17/18 07/17/18 08:04 08:06 Temperature 98.0 F Pulse Rate 121 H Pulse Rate [ 76 Anterior Bilateral Throughout] Pulse Rate [ Apical] Respiratory 18 Rate Respiratory 20 Rate [Anterior Bilateral Throughout] Blood Pressure 173/89 O2 Sat by Pulse 92 Oximetry - General Appearance General appearance: well-developed, appears stated age, other (not in distress, emaciated) EENT: ATNC, PERRL, hearing intact Neck: other (Trachea midline) Respiratory: Present: Clear to Ascultation Cardiology: regular, S1S2, no murmurs Gastrointestinal: normoactive bowel sounds, no tenderness, no distended Integumentary: ulcer, decubiti Neurologic: other (able to move extremities) Musculoskeletal: other (L AKA, R LE contractures noted) - Lab 07/17/18 12:46 07/17/18 03:57 Most recent lab results Calcium 7.5 mg/dL (8.4-10.2) L 07/17/18 03:57 Phosphorus 2.40 mg/dL (2.5-4.5) L 07/17/18 03:57 Magnesium 1.80 mg/dL (1.7-2.3) 07/17/18 03:57 66.5 mg/dL (0.1-20.0) H 07/13/18 16:30 44 mmol/L 07/13/18 16:30 Medications & Allergies - Medications Allergies/Adverse Reactions: Allergies No Known Allergies Allergy (Verified 06/21/15 09:22) Home Medications: Home Medications Medication Instructions Recorded Confirmed Last Taken Type Metoprolol [Lopressor TAB] 12.5 mg PO BID 08/03/14 07/12/18 07/24/14 History amLODIPine [Norvasc] 5 mg PO DAILY #0 08/03/14 07/12/18 07/24/14 History 5 AtorvaSTATin [Lipitor] 10 mg PO QHS 06/21/15 07/12/18 Unknown History Gabapentin [Neurontin] 100 mg PO BID 06/21/15 07/12/18 Unknown History Tamsulosin [Flomax] 0.4 mg PO DAILY 08/12/15 07/12/18 Unknown History traMADol [Ultram] 50 mg PO BID PRN 08/12/15 07/12/18 Unknown History Acetaminophen [Tylenol] 1,000 mg PO Q12HR 07/12/18 07/12/18 Unknown History Aspirin [Adult Aspirin] 81 mg PO DAILY 07/12/18 07/12/18 Unknown History Citalopram [celeXA] 10 mg PO QAM 07/12/18 07/12/18 Unknown History Losartan [Cozaar] 25 mg PO QDAY 07/12/18 07/12/18 Unknown History Mirtazapine [Remeron] 15 mg PO QHS 07/12/18 07/12/18 Unknown History Multivit,Calc,Mins/Iron/Folic 1 each PO DAILY 07/12/18 07/12/18 Unknown History [Thera-M Caplet] Sennosides Tab [Senokot] 17.2 mg PO HS 07/12/18 07/12/18 Unknown History Active Medications: Generic Name Dose Route Start Last Admin Trade Name Freq PRN Reason Stop Dose Admin Acetaminophen 650 mg 07/12/18 21:52 Tylenol PO Q4H PRN Pain MILD(1-3)/Fever >100.5/SIMONS Albuterol 2.5 mg 07/16/18 12:00 Proventil IH Q4HRT PRN Shortness Of Breath Albuterol/Ipratropium 1 ampul 07/16/18 14:00 07/17/18 07:42 Duoneb *Not For Prn Use* IH 1 ampul TIDRT [facility] Administration Aspirin 81 mg 07/12/18 22:00 07/16/18 09:49 Halfprin Ec PO 81 mg DAILY [facility] Administration Atorvastatin Calcium 10 mg 07/12/18 22:00 07/16/18 22:09 Lipitor PO 10 mg QHS [facility] Administration Citalopram Hydrobromide 10 mg 07/13/18 10:00 07/16/18 09:49 Celexa PO 10 mg QAM [facility] Administration Famotidine 10 mg 07/12/18 22:30 07/16/18 22:09 Pepcid PO 10 mg BID [facility] Administration Ceftriaxone Sodium 2 gm in 100 mls @ 200 mls/hr 07/12/18 22:00 07/16/18 22:09 Rocephin/Ns 2 Gm/100 Ml IV 200 mls/hr Q24HR@2200 [facility] Administration Protocol Azithromycin 500 mg/ Sodium 250 mls @ 250 mls/hr 07/12/18 22:00 07/16/18 22:00 Chloride IV 250 mls/hr Q24HR@2200 [facility] Administration Metronidazole 500 mg in 100 mls @ 100 mls/hr 07/14/18 18:00 07/17/18 02:56 Flagyl 500 Mg/100 Ml IV 100 mls/hr Q8H [facility] Administration Protocol Dextrose 1,000 mls @ 100 mls/hr 07/15/18 11:00 07/17/18 02:56 D5w IV 100 mls/hr DIRECT [facility] Administration Vancomycin HCl 750 mg/ Sodium 265 mls @ 166.667 mls/hr 07/17/18 10:00 Chloride IV 07/17/18 11:35 ONCE ONE Insulin Human Lispro 0 unit 07/13/18 07:30 07/16/18 22:10 Humalog SUB-Q 3 unit ACHS [facility] Administration Protocol Methylprednisolone Sodium Succinate 40 mg 07/17/18 10:00 Solu-Medrol IV Q24HR [facility] Mirtazapine 15 mg 07/12/18 22:00 07/16/18 22:09 Remeron PO 15 mg QHS [facility] Administration Morphine Sulfate 2 mg 07/12/18 21:53 07/13/18 17:54 Morphine IV 2 mg Q4H PRN Administration Pain, Moderate (4-6) Ondansetron HCl 4 mg 07/12/18 21:52 Zofran IV Q8H PRN Nausea And Vomiting Oxycodone/Acetaminophen 1 tab 07/12/18 21:53 07/16/18 09:49 Percocet 5/325 PO 1 tab Q6H PRN Administration Pain, Moderate (4-6) Sodium Chloride 10 ml 07/12/18 22:00 07/16/18 22:10 Sodium Chloride Flush Syringe 10 Ml IV 10 ml BID [facility] Administration Sodium Chloride 10 ml 07/12/18 21:52 Sodium Chloride Flush Syringe 10 Ml IV PRN PRN LINE FLUSH Tamsulosin HCl 0.4 mg 07/13/18 22:00 07/16/18 22:09 Flomax PO 0.4 mg QHS [facility] Administration
--- NOTE | 2018-07-17 09:41 | Progress Note ---
Assessment and Plan Imaging 07/13/18 Renal ultrasound: Increased renal parenchymal echotexture with parenchymal thinning consistent with chronic medical renal disease. Cultures: 07/12/18 Blood : no growth 07/12/18 Urine: 10-10k of Usual skin zan 07/13/18 MRSA PCR: negative A/P: 63 year old male wtih a past medical history of hypertension, COPD, diet controlled DM type 2, Dementia, CAD, BPH, MDD, CVA with aphasia, s/p left AKA, quadraplegia who presented to [facility] on 07/12/18 with fevers, SOB and confusion. Admitted with: 1. Sepsis: Resolved. Etiology mulitfactorial. Chest xray shows Bilateral pneumonia. U/A with Pyruria, Xray right foot possible Osteomylitis, Multiple wounds. No leukocytosis. Blood cultures show no growth to date, CRP 24.60. C urrently being treated with Azithromycin, Ceftriaxone, Vancomycin and Flagyl. 2. Bilateral Pneumonia: Chest Xray shows New/increased left more than right basilar hazy opacities/pneumonias. 3. UTI: U/S with Pyuria WBC 41 large LE. Urine culture 10-10K of usual skin zan 4. Possible Osteomylitis Right foot: 3 X 3 cm ulcer over the right medial foot and the 1st metatarsal head. Right foot xray shows a dislocation of the first digit dorsally.AP view demonstrates poorly defined cortical margin along medial aspect of first metatarsal head which could represent osteomyelitis. MRI cancelled, patient unable to extend foot. Surgical recommendation for Right BKA - medical POA needs to be established. Dr. Robles following. 5. Acute Hypoxic Respiratory Failure: on supplemental O2 6. Acute metabolic Encephalopathy: Admission NA 150 7. Multiple wounds: Sacral decubitus ulcer, Scrotal abrasions, Penis skin lesions, left knee abrasions, Wound and surgical consults ordered. 8. DM type 2: uncontrolled glucose, A1C 6.3, Admission glucose 174 9. Severe protein malnutrition: 11. LUANA: antibiotics renally dosed. Nephrology following Plan: --continue wound care -continue Azithromycin 500mg IV every 24 hours, D5 - last dose today -continue Ceftriaxone 2 gms IV every 24, D5 -continue Flagyl 500mg IV every 4 hours, ,D3 -continue Vancomycin PK dosing, D5 - continue Wound care -Right BKA recommended by surgery-Medical POA needs to be established [facility] M: [phone] O:[phone] Subjective Date of service: 07/17/18 Interval history: Patient seen and examined. Acute distress observed. Tearful. No family at bedside. No Fevers. Objective - Exam Narrative Exam: Constitutional: Awake, Dementia. Mild distress observed. Cachexia. Head, Ears, Nose: Normocephalic, atraumatic. External ears, nose normal Eyes: Conjunctivae/corneas clear. No icterus. No ptosis. Neck: Supple, no meningeal signs Oral: unable to access Cardiovascular: S1, S2 normal. Respiratory: Good air entry, clear to auscultation bilaterally. GI: Soft, non-tender; bowel sounds normal. No peritoneal signs Musculoskeletal: .Right foot ulceration, no odor or drainage. + Dressing. Sacral decubitus ulcer, Scrotal abrasions, Penis skin lesions, left knee abrasions, + Left BKA Skin: same as above Hem/Lymphatic: No palpable cervical or supraclavicular nodes. No lymphangitis Psych: Dementia. Tearful Neurological: Awake. Dementia.Garbled speech - Constitutional Vitals: Vital Signs Temp Pulse Resp BP Pulse Ox 98.0 F 76 20 173/89 92 07/17/18 08:04 07/17/18 08:06 07/17/18 08:06 07/17/18 08:04 07/17/18 08:04 Temperature -Last 24 Hours Temperature 98.0 F Temperature 98.5 F Temperature 98.2 F Temperature 97.6 F Temperature 98.2 F Temperature 98.0 F - Labs CBC & Chem 7: 07/17/18 12:46 07/17/18 03:57 Labs: Abnormal lab results 07/16/18 07/16/18 07/16/18 Range/Units 12:51 15:57 22:03 Chloride (98-107) mmol/L Carbon Dioxide (22-30) mmol/L BUN (9-20) mg/dL Creatinine (0.8-1.5) mg/dL Glucose (75-100) mg/dL POC Glucose 176 H 215 H 214 H (70-105) Calcium (8.4-10.2) mg/dL Phosphorus (2.5-4.5) mg/dL 07/17/18 07/17/18 Range/Units 03:57 07:30 Chloride 110.3 H (98-107) mmol/L Carbon Dioxide 20 L (22-30) mmol/L BUN 52 H (9-20) mg/dL Creatinine 2.0 H (0.8-1.5) mg/dL Glucose 116 H (75-100) mg/dL POC Glucose 125 H (70-105) Calcium 7.5 L (8.4-10.2) mg/dL Phosphorus 2.40 L (2.5-4.5) mg/dL
[2018-07-17] MEDS: K-PHOS NEUTRAL PO SCH ×3 (09:51→20:00)
[2018-07-17] MEDS: SODIUM CHLORIDE FLUSH SYRINGE 10 ML IV SCH ×2 (09:53→22:39)
[2018-07-17] MEDS: SOLU-Medrol IV SCH (09:53)
[2018-07-17] MEDS: HALFPRIN EC PO SCH (09:53)
[2018-07-17] MEDS: PEPCID PO SCH ×2 (09:53→22:39)
[2018-07-17] MEDS ORDERED: NORMODYNE IV PRN (09:58)
[2018-07-17] MEDS ORDERED: VANCOMYCIN 750 MG in NACL 0.9% 250ML 250 ML IV ONE (10:00)
[2018-07-17] MEDS: COREG PO SCH ×2 (10:45→22:39)
[2018-07-17] MEDS: celeXA PO SCH (10:45)
[2018-07-17] MEDS: NORVASC PO SCH (10:45)
[2018-07-17 12:56] LABS: Hematocrit 26.3 % (35.5-45.6); Hemoglobin 8.8 gm/dl (11.8-15.2)
--- NOTE | 2018-07-17 14:05 | Progress Note ---
Assessment and Plan - Patient Problems (1) Pressure ulcer of right foot, stage 4 Current Visit: Yes Status: Acute Plan to address problem: 1) Awaiting Psychiatric opinion in regard to pt's competency. Subjective Date of service: 07/17/18 Patient Reports: Positive: no new complaints Narrative: Neurology note read. Objective Vital Signs - 12hr 07/17/18 07/17/18 07/17/18 04:14 07:42 07:48 Temperature 98.5 F Pulse Rate 94 H Pulse Rate [ 104 H 109 H Anterior Bilateral Throughout] Respiratory 18 Rate Respiratory 20 20 Rate [Anterior Bilateral Throughout] Blood Pressure 137/74 O2 Sat by Pulse 95 96 Oximetry 07/17/18 07/17/18 07/17/18 07:56 08:04 08:06 Temperature 98.0 F Pulse Rate 121 H Pulse Rate [ 76 Anterior Bilateral Throughout] Respiratory 18 Rate Respiratory 20 Rate [Anterior Bilateral Throughout] Blood Pressure 173/89 O2 Sat by Pulse 100 92 Oximetry 07/17/18 07/17/18 07/17/18 11:55 13:15 13:20 Temperature 98.5 F Pulse Rate 112 H Pulse Rate [ 78 80 Anterior Bilateral Throughout] Respiratory 18 Rate Respiratory 20 20 Rate [Anterior Bilateral Throughout] Blood Pressure 146/83 O2 Sat by Pulse 94 Oximetry - Labs 07/17/18 12:46 07/17/18 03:57 Diabetes panel 07/17/18 Range/Units 03:57 Sodium 141 (137-145) mmol/L Potassium 4.3 D (3.6-5.0) mmol/L Chloride 110.3 H (98-107) mmol/L Carbon Dioxide 20 L (22-30) mmol/L BUN 52 H (9-20) mg/dL Creatinine 2.0 H (0.8-1.5) mg/dL Glucose 116 H (75-100) mg/dL Calcium 7.5 L (8.4-10.2) mg/dL Calcium panel 07/17/18 Range/Units 03:57 Calcium 7.5 L (8.4-10.2) mg/dL Phosphorus 2.40 L (2.5-4.5) mg/dL Pituitary panel 07/17/18 Range/Units 03:57 Sodium 141 (137-145) mmol/L Potassium 4.3 D (3.6-5.0) mmol/L Chloride 110.3 H (98-107) mmol/L Carbon Dioxide 20 L (22-30) mmol/L BUN 52 H (9-20) mg/dL Creatinine 2.0 H (0.8-1.5) mg/dL Glucose 116 H (75-100) mg/dL Calcium 7.5 L (8.4-10.2) mg/dL Adrenal panel 07/17/18 Range/Units 03:57 Sodium 141 (137-145) mmol/L Potassium 4.3 D (3.6-5.0) mmol/L Chloride 110.3 H (98-107) mmol/L Carbon Dioxide 20 L (22-30) mmol/L BUN 52 H (9-20) mg/dL Creatinine 2.0 H (0.8-1.5) mg/dL Glucose 116 H (75-100) mg/dL Calcium 7.5 L (8.4-10.2) mg/dL
--- NOTE | 2018-07-17 14:37 | Progress Note ---
Assessment and Plan /Sepsis due to bilateral pneumonia, UTI and possible osteomylitis: - treat with IV abx, consulted ID, input noted, abx adjusted /Right foot ulcer, suspecting osteomylitis - planned for Right AKA, Dr Robles consulted - need consent by POA/Patient - neurology and psych consulted to determine patient's decision making capacity for amputation - Could not perform MRI of the right foot today as he could not lay straight /Acute hypoxic respiratory failure - due to PNA and sepsis - required 100% NRB: weaned off to nasal canula 02, continue nebs /Chronic encephalopathy due to previous CVA with aphasia, underlying dementia. - patient was not documented as confused per ER records and h/P and he is aphasic at his baseline /Anemia of CD: stopped sq heparin, monitor h/H, r/o GI cause /Hypernatremia: improved with IVF, likely from dehydration /Acute Exacerbation COPD: treated with iv steroids, abx and nebs /Acute kidney injury on CKD, - likely vasomotor nephropathy: stopped motrin, stopped losartan, cont ivf, monitor bmp closely, Nephrology consulted - Renal ultrasound consistent with medical renal disease /Severe Protein Calorie malnutrition, - poa, bmi 16.5, albumin 1.9: consulted [employer] /Sacral decubitus ulcer at least stage 3/scrotal abrasions/penis skin lesions/left knee abrasions: wound care consulted /DM type 2, borderline, a1c 6.3: continue to monitor bmp /Thrombocytopenia, heparin stopped, monitor cbc closely DVT prophylaxis, on SCD Disposition: Pending on decision on right foot amputation versus 6 weeks of antibiotics for possible osteomyelitis. Patient is aphasic and difficult to assess for his medical decision making capacity. His next of kin his brother aren't willing to give consent for amputation as he is stating that patient should be able to make his own decision. Brief History Patient is a 63 yo man from [place] with h/o s/p left AKA, hypertension, COPD, diet controlled DM type 2, Dementia, MDD, CAD, BPH and CVA with aphasia, svitlana driplegia/leg contractures who presented to [facility] with fevers, sob. * pCXR conclusion: New/increased left more than right basilar hazy opacities/pneumonias Hospitalist Physical Gen: cachetic, ill appearing, chronically disable, no acute respiratory distres s, NAD, Orientated x 1 HEENT: NCAT, EOMI, PERRL, OP Clear Neck: supple, no adenopathy, no thyromegaly, no JVD CVS/Heart: Regular tachycardia, normal S1S2, pulses present bilaterally Chest/Lungs: coarse bs bilateral, diminished bs bilateral, Symmetrical chest expansion, good air entry bilaterally GI/Abdomen: soft, NTND, good bowel sounds, no guarding or rebound /Bladder: no suprapubic tenderness, no CVA or paraspinal tenderness Extermity/Skin: multiple different areas of skin breakdowns, see admission photos, MSK: left AKA, contracted legs, Neuro: CN 2-12 grossly intact, follow simple commands, communicate with gesture Psych: unable to assess Subjective Date of service: 07/17/18 Interval history: Patient seen and examined. Medical records and medication list reviewed. No acute event overnight noted by the RN. Patient is aphasic but about to complicate with a gesture. Patient is tolerating diet. Discussed plan of care at bedside with patient. We did one psych recommendation to proceed with the plan for amputation Objective - Constitutional Vitals: Vital Signs - 12hr 07/17/18 07/17/18 07/17/18 04:14 07:42 07:48 Temperature 98.5 F Pulse Rate 94 H Pulse Rate [ 104 H 109 H Anterior Bilateral Throughout] Respiratory 18 Rate Respiratory 20 20 Rate [Anterior Bilateral Throughout] Blood Pressure 137/74 O2 Sat by Pulse 95 96 Oximetry 07/17/18 07/17/18 07/17/18 07:56 08:04 08:06 Temperature 98.0 F Pulse Rate 121 H Pulse Rate [ 76 Anterior Bilateral Throughout] Respiratory 18 Rate Respiratory 20 Rate [Anterior Bilateral Throughout] Blood Pressure 173/89 O2 Sat by Pulse 100 92 Oximetry 07/17/18 07/17/18 07/17/18 11:55 13:15 13:20 Temperature 98.5 F Pulse Rate 112 H Pulse Rate [ 78 80 Anterior Bilateral Throughout] Respiratory 18 Rate Respiratory 20 20 Rate [Anterior Bilateral Throughout] Blood Pressure 146/83 O2 Sat by Pulse 94 Oximetry - Labs CBC & Chem 7: 07/17/18 12:46 07/18/18 06:52 Labs: Abnormal lab results 07/16/18 07/16/18 07/17/18 Range/Units 15:57 22:03 03:57 Hgb (11.8-15.2) gm/dl Hct (35.5-45.6) % Chloride 110.3 H (98-107) mmol/L Carbon Dioxide 20 L (22-30) mmol/L BUN 52 H (9-20) mg/dL Creatinine 2.0 H (0.8-1.5) mg/dL Glucose 116 H (75-100) mg/dL POC Glucose 215 H 214 H (70-105) Calcium 7.5 L (8.4-10.2) mg/dL Phosphorus 2.40 L (2.5-4.5) mg/dL 07/17/18 07/17/18 07/17/18 Range/Units 07:30 11:58 12:46 Hgb 8.8 L (11.8-15.2) gm/dl Hct 26.3 L (35.5-45.6) % Chloride (98-107) mmol/L Carbon Dioxide (22-30) mmol/L BUN (9-20) mg/dL Creatinine (0.8-1.5) mg/dL Glucose (75-100) mg/dL POC Glucose 125 H 159 H (70-105) Calcium (8.4-10.2) mg/dL Phosphorus (2.5-4.5) mg/dL
[2018-07-17] MEDS: ZITHROMAX 500 MG in NACL 0.9% 250ML 250 ML IV SCH (22:39)
[2018-07-17] MEDS: FLOMAX PO SCH (22:39)
[2018-07-17] MEDS: ROCEPHIN/NS 2 GM/100 ML 2 GM/100 ML BAG IV SCH (22:39)
[2018-07-17] MEDS: REMERON PO SCH (22:39)
[2018-07-18] MEDS: FLAGYL 500 MG/100 ML 500 MG/100 ML BAG IV SCH ×3 (02:00→18:31)
[2018-07-18] MEDS: DUONEB *Not for PRN Use IH SCH ×3 (07:09→19:06)
[2018-07-18] MEDS: HumaLOG SUB-Q SCH ×4 (07:30→22:00)
[2018-07-18 08:28] LABS: Calcium 7.7 mg/dL (8.4-10.2)
--- NOTE | 2018-07-18 09:57 | Progress Note ---
Assessment and Plan 1. Acute kidney injury: Vasomotor LUANA in the setting of volume depletion. Continue IV fluids. Renal function is improving. Renal US was negative for hydro. Avoid nephrotoxic agents. Meds dosage based on GFR. 2. FEN: Volume depletion, continue IV fluids. Hypernatremia, improved. Metabolic acidosis, continue IV fluids. Monitor lytes. 3. Sepsis: Bilateral pneumonia, UTI and R foot infection. IV Abx. 4. Acute hypoxic respiratory failure. 5. Acute metabolic encephalopathy. 6. Sacral decubitus ulcer. 7. DM type 2. Subjective Date of service: 07/18/18 Interval history: Patient was seen and examined at the bedside. Objective - Vital Signs Vital signs: Vital Signs - 12hr 07/17/18 07/17/18 07/18/18 22:00 23:40 04:33 Temperature 97.5 F L 97.5 F L Pulse Rate 100 H 101 H 97 H Pulse Rate [ Anterior Bilateral Throughout] Respiratory 20 18 Rate Respiratory Rate [Anterior Bilateral Throughout] Blood Pressure 133/79 164/92 O2 Sat by Pulse 92 96 Oximetry 07/18/18 07/18/18 07:09 07:38 Temperature 97.6 F Pulse Rate Pulse Rate [ 104 H Anterior Bilateral Throughout] Respiratory 18 Rate Respiratory 18 Rate [Anterior Bilateral Throughout] Blood Pressure 143/84 O2 Sat by Pulse 95 Oximetry - General Appearance General appearance: well-developed, appears stated age, cachectic, other (not in distress) EENT: ATNC, PERRL, hearing intact Neck: other (Trachea midline) Respiratory: Present: Clear to Ascultation Cardiology: regular, S1S2, no murmurs Gastrointestinal: normoactive bowel sounds, no tenderness, no distended Integumentary: ulcer, decubiti Neurologic: confused, other (able to move extremities, conversing) Musculoskeletal: other (L AKA, contractures noted) - Lab 07/17/18 12:46 07/18/18 06:52 Most recent lab results Calcium 7.7 mg/dL (8.4-10.2) L 07/18/18 06:52 Phosphorus 3.10 mg/dL (2.5-4.5) D 07/18/18 06:52 Magnesium 1.80 mg/dL (1.7-2.3) 07/17/18 03:57 66.5 mg/dL (0.1-20.0) H 07/13/18 16:30 44 mmol/L 07/13/18 16:30 Medications & Allergies - Medications Allergies/Adverse Reactions: Allergies No Known Allergies Allergy (Verified 06/21/15 09:22) Home Medications: Home Medications Medication Instructions Recorded Confirmed Last Taken Type Metoprolol [Lopressor TAB] 12.5 mg PO BID 08/03/14 07/12/18 07/24/14 History amLODIPine [Norvasc] 5 mg PO DAILY #0 08/03/14 07/12/18 07/24/14 History 5 AtorvaSTATin [Lipitor] 10 mg PO QHS 06/21/15 07/12/18 Unknown History Gabapentin [Neurontin] 100 mg PO BID 06/21/15 07/12/18 Unknown History Tamsulosin [Flomax] 0.4 mg PO DAILY 08/12/15 07/12/18 Unknown History traMADol [Ultram] 50 mg PO BID PRN 08/12/15 07/12/18 Unknown History Acetaminophen [Tylenol] 1,000 mg PO Q12HR 07/12/18 07/12/18 Unknown History Aspirin [Adult Aspirin] 81 mg PO DAILY 07/12/18 07/12/18 Unknown History Citalopram [celeXA] 10 mg PO QAM 07/12/18 07/12/18 Unknown History Losartan [Cozaar] 25 mg PO QDAY 07/12/18 07/12/18 Unknown History Mirtazapine [Remeron] 15 mg PO QHS 07/12/18 07/12/18 Unknown History Multivit,Calc,Mins/Iron/Folic 1 each PO DAILY 07/12/18 07/12/18 Unknown History [Thera-M Caplet] Sennosides Tab [Senokot] 17.2 mg PO HS 07/12/18 07/12/18 Unknown History Active Medications: Generic Name Dose Route Start Last Admin Trade Name Freq PRN Reason Stop Dose Admin Acetaminophen 650 mg 07/12/18 21:52 Tylenol PO Q4H PRN Pain MILD(1-3)/Fever >100.5/SIMONS Albuterol 2.5 mg 07/16/18 12:00 Proventil IH Q4HRT PRN Shortness Of Breath Albuterol/Ipratropium 1 ampul 07/16/18 14:00 07/18/18 07:09 Duoneb *Not For Prn Use* IH 1 ampul TIDRT LIVIA Administration Amlodipine Besylate 10 mg 07/17/18 11:00 07/17/18 10:45 Norvasc PO 10 mg QDAY LIVIA Administration Aspirin 81 mg 07/12/18 22:00 07/17/18 09:53 Halfprin Ec PO 81 mg DAILY LIVIA Administration Atorvastatin Calcium 10 mg 07/12/18 22:00 07/17/18 22:39 Lipitor PO 10 mg QHS LIVIA Administration Carvedilol 6.25 mg 07/17/18 11:00 07/17/18 22:39 Coreg PO 6.25 mg BID LIVIA Administration Citalopram Hydrobromide 10 mg 07/13/18 10:00 07/17/18 10:45 Celexa PO 10 mg QAM LIVIA Administration Famotidine 10 mg 07/12/18 22:30 07/17/18 22:39 Pepcid PO 10 mg BID LIVIA Administration Ceftriaxone Sodium 2 gm in 100 mls @ 200 mls/hr 07/12/18 22:00 07/17/18 22:39 Rocephin/Ns 2 Gm/100 Ml IV 200 mls/hr Q24HR@2200 LIVIA Administration Protocol Azithromycin 500 mg/ Sodium 250 mls @ 250 mls/hr 07/12/18 22:00 07/17/18 22:39 Chloride IV 250 mls/hr Q24HR@2200 LIVIA Administration Metronidazole 500 mg in 100 mls @ 100 mls/hr 07/14/18 18:00 07/18/18 02:00 Flagyl 500 Mg/100 Ml IV 100 mls/hr Q8H LIVIA Administration Protocol Dextrose 1,000 mls @ 100 mls/hr 07/15/18 11:00 07/17/18 22:39 D5w IV 100 mls/hr DIRECT LIVIA Administration Insulin Human Lispro 0 unit 07/13/18 07:30 07/17/18 22:00 Humalog SUB-Q Not Given ACHS LIVIA Protocol Labetalol HCl 10 mg 07/17/18 09:58 Normodyne IV Q6H PRN Hypertension Methylprednisolone Sodium Succinate 40 mg 07/17/18 10:00 07/17/18 09:53 Solu-Medrol IV 40 mg Q24HR LIVIA Administration Mirtazapine 15 mg 07/12/18 22:00 07/17/18 22:39 Remeron PO 15 mg QHS LIVIA Administration Morphine Sulfate 2 mg 07/12/18 21:53 07/13/18 17:54 Morphine IV 2 mg Q4H PRN Administration Pain, Moderate (4-6) Ondansetron HCl 4 mg 07/12/18 21:52 Zofran IV Q8H PRN Nausea And Vomiting Oxycodone/Acetaminophen 1 tab 07/12/18 21:53 07/16/18 09:49 Percocet 5/325 PO 1 tab Q6H PRN Administration Pain, Moderate (4-6) Sodium Chloride 10 ml 07/12/18 22:00 07/17/18 22:39 Sodium Chloride Flush Syringe 10 Ml IV 10 ml BID LIVIA Administration Sodium Chloride 10 ml 07/12/18 21:52 Sodium Chloride Flush Syringe 10 Ml IV PRN PRN LINE FLUSH Sodium Phosphate 250 mg 07/17/18 10:00 07/17/18 20:00 K-Phos Neutral PO Not Given TID LIVIA Tamsulosin HCl 0.4 mg 07/13/18 22:00 07/17/18 22:39 Flomax PO 0.4 mg QHS LIVIA Administration
[2018-07-18] MEDS: SOLU-Medrol IV SCH (10:20)
[2018-07-18] MEDS: PEPCID PO SCH ×2 (10:20→22:14)
[2018-07-18] MEDS: celeXA PO SCH (10:21)
[2018-07-18] MEDS: K-PHOS NEUTRAL PO SCH ×3 (10:21→22:14)
[2018-07-18] MEDS: COREG PO SCH ×2 (10:27→22:15)
[2018-07-18] MEDS: NORVASC PO SCH (10:27)
[2018-07-18] MEDS: SODIUM CHLORIDE FLUSH SYRINGE 10 ML IV SCH ×2 (10:31→22:15)
--- NOTE | 2018-07-18 10:32 | Progress Note ---
Assessment and Plan Imaging 07/13/18 Renal ultrasound: Increased renal parenchymal echotexture with parenchymal thinning consistent with chronic medical renal disease. Cultures: 07/12/18 Blood : no growth 07/12/18 Urine: 10-10k of Usual skin zan 07/13/18 MRSA PCR: negative A/P: 63 year old male wtih a past medical history of hypertension, COPD, diet controlled DM type 2, Dementia, CAD, BPH, MDD, CVA with aphasia, s/p left AKA, quadraplegia who presented to [facility] on 07/12/18 with fevers, SOB and confusion. Admitted with: 1. Sepsis: Improved. Still tachycardia. Etiology mulitfactorial. Chest xray shows Bilateral pneumonia. U/A with Pyruria, Xray right foot possible Osteomylitis, Multiple wounds. No leukocytosis. Blood cultures show no growth to date, CRP 24.60. Currently being treated with Azithromycin, Ceftriaxone, Vancomycin and Flagyl. 2. Bilateral Pneumonia: Chest Xray shows New/increased left more than right basilar hazy opacities/pneumonias. 3. UTI: U/S with Pyuria WBC 41 large LE. Urine culture 10-10K of usual skin zan 4. Possible Osteomylitis Right foot: 3 X 3 cm ulcer over the right medial foot and the 1st metatarsal head. Right foot xray shows a dislocation of the first digit dorsally.AP view demonstrates poorly defined cortical margin along medial aspect of first metatarsal head which could represent osteomyelitis. MRI cancelled, patient unable to extend foot. Surgical recommendation for Right BKA . Patient and brother have declined BKA per IMS and case management. Will be discharged on Levofloxacin 500mg q48 for total 4 weeks ending 08-09-18. 5. Acute Hypoxic Respiratory Failure: on supplemental O2 6. Acute metabolic Encephalopathy: Admission NA 150 7. Multiple wounds: Sacral decubitus ulcer, Scrotal abrasions, Penis skin lesions, left knee abrasions, Wound and surgical consults ordered. 8. DM type 2: uncontrolled glucose, A1C 6.3, Admission glucose 174 9. Severe protein malnutrition: 11. LUANA: antibiotics renally dosed. Nephrology following Plan: --continue wound care -continue Ceftriaxone 2 gms IV every 24, D6 -continue Flagyl 500mg IV every 4 hours, ,D4 -continue Vancomycin PK dosing, D6 - continue Wound care out patient -patient and family declining BKA- Anticipate discharge on Levofloxacin 500mg every 48 hours for total 4 weeks ending 08-09-18 -follow-up ID clinic in 3 weeks [facility] M: [id number] O:[phone] Subjective Date of service: 07/18/18 Interval history: Patient seen and examined. No acute distress. No fevers. + supplemental oxygen. Objective - Exam Narrative Exam: Constitutional: Awake,Alert. Unintelligible speech. Cachexia. Head, Ears, Nose: Normocephalic, atraumatic. External ears, nose normal Eyes: Conjunctivae/corneas clear. No icterus. No ptosis. Neck: Supple, no meningeal signs Oral: unable to access Cardiovascular: S1, S2 normal. Respiratory: Good air entry, clear to auscultation bilaterally. GI: Soft, non-tender; bowel sounds normal. No peritoneal signs Musculoskeletal: .Right foot ulceration, no odor or drainage. + Dressing. Sacral decubitus ulcer, Scrotal abrasions, Penis skin lesions, left knee abrasions, + Left BKA Skin: same as above Hem/Lymphatic: No palpable cervical or supraclavicular nodes. No lymphangitis Psych: unable to access. . Neurological: Awake. Unintelligible speech - Constitutional Vitals: Vital Signs Temp Pulse Resp BP Pulse Ox 97.6 F 110 H 18 143/84 95 07/18/18 07:38 07/18/18 10:27 07/18/18 07:38 07/18/18 10:27 07/18/18 07:09 Temperature -Last 24 Hours Temperature 97.6 F Temperature 97.5 F Temperature 97.5 F Temperature 97.6 F Temperature 98.1 F Temperature 98.5 F - Labs CBC & Chem 7: 07/17/18 12:46 07/18/18 06:52 Labs: Abnormal lab results 07/17/18 07/17/18 07/17/18 Range/Units 11:58 12:46 16:27 Hgb 8.8 L (11.8-15.2) gm/dl Hct 26.3 L (35.5-45.6) % Chloride (98-107) mmol/L Carbon Dioxide (22-30) mmol/L BUN (9-20) mg/dL Creatinine (0.8-1.5) mg/dL POC Glucose 159 H 126 H (70-105) Calcium (8.4-10.2) mg/dL 07/17/18 07/18/18 Range/Units 21:54 06:52 Hgb (11.8-15.2) gm/dl Hct (35.5-45.6) % Chloride 107.9 H (98-107) mmol/L Carbon Dioxide 19 L (22-30) mmol/L BUN 50 H (9-20) mg/dL Creatinine 1.7 H (0.8-1.5) mg/dL POC Glucose 137 H (70-105) Calcium 7.7 L (8.4-10.2) mg/dL
--- NOTE | 2018-07-18 11:28 | Progress Note ---
Assessment and Plan - Patient Problems (1) Pressure ulcer of right foot, stage 4 Current Visit: Yes Status: Acute Plan to address problem: 1) Awaiting Psychiatry opinion as to this pt's competency. Subjective Date of service: 07/18/18 Patient Reports: Positive: no new complaints Objective Vital Signs - 12hr 07/17/18 07/18/18 07/18/18 23:40 04:33 07:09 Temperature 97.5 F L 97.5 F L Pulse Rate 101 H 97 H Pulse Rate [ 104 H Anterior Bilateral Throughout] Respiratory 20 18 Rate Respiratory 18 Rate [Anterior Bilateral Throughout] Blood Pressure 133/79 164/92 O2 Sat by Pulse 92 96 95 Oximetry 07/18/18 07/18/18 07/18/18 07:20 07:38 10:27 Temperature 97.6 F Pulse Rate 110 H Pulse Rate [ 114 H Anterior Bilateral Throughout] Respiratory 18 Rate Respiratory 20 Rate [Anterior Bilateral Throughout] Blood Pressure 143/84 143/84 O2 Sat by Pulse Oximetry - Labs 07/17/18 12:46 07/18/18 06:52 Diabetes panel 07/18/18 Range/Units 06:52 Sodium 140 (137-145) mmol/L Potassium 4.4 (3.6-5.0) mmol/L Chloride 107.9 H (98-107) mmol/L Carbon Dioxide 19 L (22-30) mmol/L BUN 50 H (9-20) mg/dL Creatinine 1.7 H (0.8-1.5) mg/dL Glucose 87 (75-100) mg/dL Calcium 7.7 L (8.4-10.2) mg/dL Calcium panel 07/18/18 Range/Units 06:52 Calcium 7.7 L (8.4-10.2) mg/dL Phosphorus 3.10 D (2.5-4.5) mg/dL Pituitary panel 07/18/18 Range/Units 06:52 Sodium 140 (137-145) mmol/L Potassium 4.4 (3.6-5.0) mmol/L Chloride 107.9 H (98-107) mmol/L Carbon Dioxide 19 L (22-30) mmol/L BUN 50 H (9-20) mg/dL Creatinine 1.7 H (0.8-1.5) mg/dL Glucose 87 (75-100) mg/dL Calcium 7.7 L (8.4-10.2) mg/dL Adrenal panel 07/18/18 Range/Units 06:52 Sodium 140 (137-145) mmol/L Potassium 4.4 (3.6-5.0) mmol/L Chloride 107.9 H (98-107) mmol/L Carbon Dioxide 19 L (22-30) mmol/L BUN 50 H (9-20) mg/dL Creatinine 1.7 H (0.8-1.5) mg/dL Glucose 87 (75-100) mg/dL Calcium 7.7 L (8.4-10.2) mg/dL
[2018-07-18] MEDS ORDERED: VANCOMYCIN 750 MG in NACL 0.9% 250ML 250 ML IV SCH (12:00)
[2018-07-18] MEDS: BABY ASPIRIN PO SCH (12:03)
--- NOTE | 2018-07-18 14:54 | Event Note ---
Date: 07/18/18 Discussed with the patient's brother and the patient with the case management Discussed about the prognosis and plan of care Both patient's brother and patient declining amputation for now We'll defer it further to the infectious disease to make recommendation for antibiotics for discharge planning
--- NOTE | 2018-07-18 14:55 | Consultation ---
History of Present Illness - Reason for Consult Consult date: 07/18/18 Reason for consult: Decisional Capacity Evaluation Requesting physician: SUGAR CALL - Chief Complaint Chief complaint: Psychiatry was consulted to see the patient for a decisional capacity evaluation (Right AKA). Today the patient was calm, but refused to cooperate during the assessment. He mumbled "I don't want to talk," I the provider wrote down several questions on a paper to attempt to communicate with the patient, again he refused to answer the questions. At this current time, the capacity evaluation was unable to be completed due to the patient's unwillingness to cooperate. I am outlining the detailed process of how to complete a capacity evaluation below, if the primary team would like to engage in that process with the patient independently at another point in time. Decisional Capacity is subject to change from time to time and needs to be assessed each time a decision is being made by the patient regarding their medical care. The consent process for treatment usually fulfills the requirements necessary for decisional capacity and it can be used to determine decisional capacity when augmented by the specific steps outlined below. *We have 4 criteria (based on [employer] & Tres[employer] in 1988) to assess TASK- specific decision-making capacity: 1) communicating a consistent choice 2) understanding pertinent information (nature of illness) 3) appreciate the circumstances & consequences (treatment options, prognosis with and without treatment, risk/ benefit ratio of treatment) 4) ability to rationally manipulate the information. It is fluid and may change from day to day. If order for a capacity evaluation to be complete, the following information needs to be assessed and documented by the primary team. A. Please document why there is a concern about lack of capacity and the specific task that we are evaluating. Capacity must be TASK specific evaluating vs global evaluation for competency. 1. For example- does the patient have capacity to leave AMA or refuse a surgery? 2. Global Capacity (a.k.a. Competency) is determined by the legal system. B. Please document the patients understanding of specific problems and treatment options? ( if possible, use their own words) C. Is the patient able to explain the consequences (risks vs benefits) of treatment options? Please document their explanation. D. Is the patient able to reason through their treatment options and manipulate information in regards to themselves? E. Does the patient display a clear and consistent choice? F. If the patient is unable to demonstrate that they have capacity, then a surrogate decision maker should be named to assist with decision making. Staffed with Dr Pallavi Lynn. Medications and Allergies Allergies Allergy/AdvReac Type Severity Reaction Status Date / Time No Known Allergies Allergy Verified 06/21/15 09:22 Home Medications Medication Instructions Recorded Confirmed Last Taken Type Metoprolol [Lopressor TAB] 12.5 mg PO BID 08/03/14 07/12/18 07/24/14 History amLODIPine [Norvasc] 5 mg PO DAILY #0 08/03/14 07/12/18 07/24/14 History 5 AtorvaSTATin [Lipitor] 10 mg PO QHS 06/21/15 07/12/18 Unknown History Gabapentin [Neurontin] 100 mg PO BID 06/21/15 07/12/18 Unknown History Tamsulosin [Flomax] 0.4 mg PO DAILY 08/12/15 07/12/18 Unknown History traMADol [Ultram] 50 mg PO BID PRN 08/12/15 07/12/18 Unknown History Acetaminophen [Tylenol] 1,000 mg PO Q12HR 07/12/18 07/12/18 Unknown History Aspirin [Adult Aspirin] 81 mg PO DAILY 07/12/18 07/12/18 Unknown History Citalopram [celeXA] 10 mg PO QAM 07/12/18 07/12/18 Unknown History Losartan [Cozaar] 25 mg PO QDAY 07/12/18 07/12/18 Unknown History Mirtazapine [Remeron] 15 mg PO QHS 07/12/18 07/12/18 Unknown History Multivit,Calc,Mins/Iron/Folic 1 each PO DAILY 07/12/18 07/12/18 Unknown History [Thera-M Caplet] Sennosides Tab [Senokot] 17.2 mg PO HS 07/12/18 07/12/18 Unknown History Active Meds: Active Medications Acetaminophen (Tylenol) 650 mg PO Q4H PRN PRN Reason: Pain MILD(1-3)/Fever >100.5/SIMONS Albuterol (Proventil) 2.5 mg IH Q4HRT PRN PRN Reason: Shortness Of Breath Albuterol/Ipratropium (Duoneb *Not For Prn Use*) 1 ampul IH TIDRT [facility] Last Admin: 07/18/18 13:21 Dose: 1 ampul Documented by: Amlodipine Besylate (Norvasc) 10 mg PO QDAY [facility] Last Admin: 07/18/18 10:27 Dose: 10 mg Documented by: Aspirin (Baby Aspirin) 81 mg PO QDAY [facility] Last Admin: 07/18/18 12:03 Dose: 81 mg Documented by: Atorvastatin Calcium (Lipitor) 10 mg PO QHS [facility] Last Admin: 07/17/18 22:39 Dose: 10 mg Documented by: Carvedilol (Coreg) 6.25 mg PO BID [facility] Last Admin: 07/18/18 10:27 Dose: 6.25 mg Documented by: Citalopram Hydrobromide (Celexa) 10 mg PO QAM [facility] Last Admin: 07/18/18 10:21 Dose: 10 mg Documented by: Famotidine (Pepcid) 10 mg PO BID [facility] Last Admin: 07/18/18 10:20 Dose: 10 mg Documented by: Ceftriaxone Sodium (Rocephin/Ns 2 Gm/100 Ml) 2 gm in 100 mls @ 200 mls/hr IV Q24HR@2200 [facility]; Protocol Last Admin: 07/17/18 22:39 Dose: 200 mls/hr Documented by: Metronidazole (Flagyl 500 Mg/100 Ml) 500 mg in 100 mls @ 100 mls/hr IV Q8H [facility]; Protocol Last Admin: 07/18/18 12:02 Dose: 100 mls/hr Documented by: Dextrose (D5w) 1,000 mls @ 100 mls/hr IV DIRECT [facility] Last Admin: 07/17/18 22:39 Dose: 100 mls/hr Documented by: Vancomycin HCl 750 mg/ Sodium (Chloride) 265 mls @ 166.667 mls/hr IV Q24HR [facility] Last Admin: 07/18/18 14:18 Dose: 166.667 mls/hr Documented by: Insulin Human Lispro (Humalog) 0 unit SUB-Q ACHS [facility]; Protocol Last Admin: 07/18/18 11:30 Dose: Not Given Documented by: Labetalol HCl (Normodyne) 10 mg IV Q6H PRN PRN Reason: Hypertension Methylprednisolone Sodium Succinate (Solu-Medrol) 40 mg IV Q24HR [facility] Last Admin: 07/18/18 10:20 Dose: 40 mg Documented by: Mirtazapine (Remeron) 15 mg PO QHS [facility] Last Admin: 07/17/18 22:39 Dose: 15 mg Documented by: Morphine Sulfate (Morphine) 2 mg IV Q4H PRN PRN Reason: Pain, Moderate (4-6) Last Admin: 07/13/18 17:54 Dose: 2 mg Documented by: Ondansetron HCl (Zofran) 4 mg IV Q8H PRN PRN Reason: Nausea And Vomiting Oxycodone/Acetaminophen (Percocet 5/325) 1 tab PO Q6H PRN PRN Reason: Pain, Moderate (4-6) Last Admin: 07/16/18 09:49 Dose: 1 tab Documented by: Sodium Chloride (Sodium Chloride Flush Syringe 10 Ml) 10 ml IV BID [facility] Last Admin: 07/18/18 10:31 Dose: 10 ml Documented by: Sodium Chloride (Sodium Chloride Flush Syringe 10 Ml) 10 ml IV PRN PRN PRN Reason: LINE FLUSH Sodium Phosphate (K-Phos Neutral) 250 mg PO TID [facility] Last Admin: 07/18/18 10:21 Dose: 250 mg Documented by: Tamsulosin HCl (Flomax) 0.4 mg PO QHS [facility] Last Admin: 07/17/18 22:39 Dose: 0.4 mg Documented by: Mental Status Exam - Vital signs Last Vital Signs Temp 97.6 F 07/18/18 12:02 Pulse 112 H 07/18/18 13:31 Resp 18 07/18/18 13:31 BP 159/85 07/18/18 12:02 Pulse Ox 98 07/18/18 12:02 Results Result Diagrams: 07/19/18 04:10 07/19/18 04:10 Abnormal lab results 07/17/18 07/17/18 07/18/18 Range/Units 16:27 21:54 06:52 Chloride 107.9 H (98-107) mmol/L Carbon Dioxide 19 L (22-30) mmol/L BUN 50 H (9-20) mg/dL Creatinine 1.7 H (0.8-1.5) mg/dL POC Glucose 126 H 137 H (70-105) Calcium 7.7 L (8.4-10.2) mg/dL 07/18/18 Range/Units 12:02 Chloride (98-107) mmol/L Carbon Dioxide (22-30) mmol/L BUN (9-20) mg/dL Creatinine (0.8-1.5) mg/dL POC Glucose 146 H (70-105) Calcium (8.4-10.2) mg/dL All other labs normal.
--- NOTE | 2018-07-18 14:57 | Progress Note ---
Assessment and Plan /Sepsis due to bilateral pneumonia, UTI and possible osteomylitis: - treat with IV abx, consulted ID, input noted, abx adjusted /Right foot ulcer, suspecting osteomylitis - planned for Right AKA, Dr Robles consulted - family and patient both refusing amputation for now - Could not perform MRI of the right foot today as he could not lay straight - Plan to treat with IV/po antibiotics for now for total 6 weeks,wound care and outpatient follow-up /Acute hypoxic respiratory failure - due to PNA and sepsis - required 100% NRB: weaned off to nasal canula 02, continue nebs /Chronic encephalopathy due to previous CVA with aphasia, underlying dementia. 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 We will await further ID recommendation for discharge antibiotics. Possible DC back to detention if renal function remains stable, likely tomorrow. Brief History Patient is a 63 yo man from [place] with h/o s/p left AKA, hypertension, COPD, diet controlled DM type 2, Dementia, MDD, CAD, BPH and CVA with aphasia, quadriplegia/leg contractures who presented to [facility] ED with fevers, sob. * pCXR conclusion: New/increased left more than right basilar hazy opacities/pneumonias Hospitalist Physical Gen: cachetic, ill appearing, chronically disable, no acute respiratory distress, NAD, Orientated x 1 HEENT: NCAT, EOMI, PERRL, OP Clear Neck: supple, no adenopathy, no thyromegaly, no JVD CVS/Heart: Regular tachycardia, normal S1S2, pulses present bilaterally Chest/Lungs: coarse bs bilateral, diminished bs bilateral, Symmetrical chest expansion, good air entry bilaterally GI/Abdomen: soft, NTND, good bowel sounds, no guarding or rebound /Bladder: no suprapubic tenderness, no CVA or paraspinal tenderness Extermity/Skin: multiple different areas of skin breakdowns, see admission photos, MSK: left AKA, contracted legs, Neuro: CN 2-12 grossly intact, follow simple commands, communicate with gesture Psych: unable to assess Subjective Date of service: 07/18/18 Interval history: Patient seen and examined. Medical records and medication list reviewed. No acute event overnight noted by the RN. Patient is aphasic but about to communicate with gesture and sign language. Patient is tolerating diet. Discussed plan of care at bedside with patient and his brother. Both patient's brother and patient declining amputation for now Objective - Constitutional Vitals: Vital Signs - 12hr 07/18/18 07/18/18 07/18/18 04:33 07:09 07:20 Temperature 97.5 F L Pulse Rate 97 H Pulse Rate [ 104 H 114 H Anterior Bilateral Throughout] Respiratory 18 Rate Respiratory 18 20 Rate [Anterior Bilateral Throughout] Blood Pressure 164/92 O2 Sat by Pulse 96 95 Oximetry 07/18/18 07/18/18 07/18/18 07:38 10:27 12:02 Temperature 97.6 F 97.6 F Pulse Rate 110 H 112 H Pulse Rate [ Anterior Bilateral Throughout] Respiratory 18 20 Rate Respiratory Rate [Anterior Bilateral Throughout] Blood Pressure 143/84 143/84 159/85 O2 Sat by Pulse 98 Oximetry 07/18/18 07/18/18 13:21 13:31 Temperature Pulse Rate Pulse Rate [ 110 H 112 H Anterior Bilateral Throughout] Respiratory Rate Respiratory 18 18 Rate [Anterior Bilateral Throughout] Blood Pressure O2 Sat by Pulse Oximetry - Labs CBC & Chem 7: 07/19/18 04:10 07/19/18 04:10 Labs: Abnormal lab results 07/17/18 07/17/18 07/18/18 Range/Units 16:27 21:54 06:52 Chloride 107.9 H (98-107) mmol/L Carbon Dioxide 19 L (22-30) mmol/L BUN 50 H (9-20) mg/dL Creatinine 1.7 H (0.8-1.5) mg/dL POC Glucose 126 H 137 H (70-105) Calcium 7.7 L (8.4-10.2) mg/dL 07/18/18 Range/Units 12:02 Chloride (98-107) mmol/L Carbon Dioxide (22-30) mmol/L BUN (9-20) mg/dL Creatinine (0.8-1.5) mg/dL POC Glucose 146 H (70-105) Calcium (8.4-10.2) mg/dL
[2018-07-18] MEDS: D5W 1,000 ML IV SCH (18:40)
[2018-07-18] MEDS: PERCOCET 5/325 PO PRN (18:43)
[2018-07-18] MEDS: ROCEPHIN/NS 2 GM/100 ML 2 GM/100 ML BAG IV SCH (22:11)
[2018-07-18] MEDS: FLOMAX PO SCH (22:15)
[2018-07-18] MEDS: REMERON PO SCH (22:15)
[2018-07-19] MEDS: FLAGYL 500 MG/100 ML 500 MG/100 ML BAG IV SCH ×2 (03:19→10:06)
[2018-07-19 05:57] LABS: Hematocrit 22.9 % (35.5-45.6); Hemoglobin 7.8 gm/dl (11.8-15.2); Mean Corpuscular HGB Conc 34 % (32-34); Mean Corpuscular Volume 91 fl (84-94); Platelet Count 153 K/mm3 (140-440); Red Blood Count 2.53 M/mm3 (3.65-5.03); Red Cell Distribution Width 17.4 % (13.2-15.2)
[2018-07-19 06:14] LABS: Calcium 7.2 mg/dL (8.4-10.2)
[2018-07-19] MEDS: HumaLOG SUB-Q SCH (07:30)
[2018-07-19 08:00] LABS: Band Neutrophils # (Manual) 0.2 K/mm3; Basophils % (Manual) 0 % (0.0-1.8); Eosinophils % (Manual) 0 % (0.0-4.3); Myelocytes # (Manual) 0.3 K/mm3; Promyelocytes # (Manual) 0.4 K/mm3; Total Cells Counted 100
[2018-07-19 08:01] LABS: Anisocytosis Few; Macrocytosis Rare; Platelet Estimate Consistent w Auto; Poikilocytosis Few
[2018-07-19] MEDS: DUONEB *Not for PRN Use IH SCH ×3 (08:52→14:28)
[2018-07-19] MEDS: D5W 1,000 ML IV SCH (09:37)
[2018-07-19] MEDS: PEPCID PO SCH (09:39)
[2018-07-19] MEDS: celeXA PO SCH (09:39)
[2018-07-19] MEDS: SOLU-Medrol IV SCH (09:39)
[2018-07-19] MEDS: SODIUM CHLORIDE FLUSH SYRINGE 10 ML IV SCH (09:39)
[2018-07-19] MEDS: PERCOCET 5/325 PO PRN (09:40)
[2018-07-19] MEDS: BABY ASPIRIN PO SCH (09:40)
[2018-07-19] MEDS: K-PHOS NEUTRAL PO SCH (09:42)
[2018-07-19] MEDS: COREG PO SCH (09:46)
[2018-07-19] MEDS: NORVASC PO SCH (09:47)
--- NOTE | 2018-07-19 09:48 | Progress Note ---
Assessment and Plan Imaging 07/13/18 Renal ultrasound: Increased renal parenchymal echotexture with parenchymal thinning consistent with chronic medical renal disease. Cultures: 07/12/18 Blood : no growth 07/12/18 Urine: 10-10k of Usual skin zan 07/13/18 MRSA PCR: negative A/P: 63 year old male wtih a past medical history of hypertension, COPD, diet controlled DM type 2, Dementia, CAD, BPH, MDD, CVA with aphasia, s/p left AKA, quadraplegia who presented to [facility] on 07/12/18 with fevers, SOB and confusion. Admitted with: 1. Sepsis; Resolved. Etiology mulitfactorial. Chest xray shows Bilateral pneumonia. U/A with Pyruria, Xray right foot possible Osteomylitis, Multiple wounds. No leukocytosis. Blood cultures show no growth to date, CRP 24.60. C urrently being treated with Azithromycin, Ceftriaxone, Vancomycin and Flagyl. 2. Bilateral Pneumonia: Chest Xray shows New/increased left more than right basilar hazy opacities/pneumonias. 3. UTI: U/S with Pyuria WBC 41 large LE. Urine culture 10-10K of usual skin zan 4. Possible Osteomylitis Right foot: 3 X 3 cm ulcer over the right medial foot and the 1st metatarsal head. Right foot xray shows a dislocation of the first digit dorsally.AP view demonstrates poorly defined cortical margin along medial aspect of first metatarsal head which could represent osteomyelitis. MRI cancelled, patient unable to extend foot. Surgical recommendation for Right BKA . Patient and brother have declined BKA per IMS and case management. Will be discharged on Levofloxacin 500mg q48 for total 4 weeks ending 08-09-18. 5. Acute Hypoxic Respiratory Failure: on supplemental O2 6. Acute metabolic Encephalopathy: Admission NA 150 7. Multiple wounds: Sacral decubitus ulcer, Scrotal abrasions, Penis skin lesions, left knee abrasions, Wound and surgical consults ordered. 8. DM type 2: uncontrolled glucose, A1C 6.3, Admission glucose 174 9. Severe protein malnutrition: 11. LUANA: antibiotics renally dosed. Nephrology following Plan: --continue wound care -continue Ceftriaxone 2 gms IV every 24, D7 -continue Flagyl 500mg IV every 4 hours, ,D5 -discontinue Vancomycin PK dosing, - continue Wound care out patient -patient and family declining BKA- Anticipate discharge on Levofloxacin 500mg every 48 hours for total 4 weeks ending 08-09-18 -follow-up ID clinic in [address] Seo will be covering call this weekend, . Please call for questions. Will round on Sunday. [facility] M: [phone] O:[phone] Subjective Date of service: 07/19/18 Interval history: Patient seen and examined. No acute distress. No fevers. + supplemental oxygen. Objective - Exam Narrative Exam: Constitutional: Awake,Alert. Unintelligible speech. Cachexia. Head, Ears, Nose: Normocephalic, atraumatic. External ears, nose normal Eyes: Conjunctivae/corneas clear. No icterus. No ptosis. Neck: Supple, no meningeal signs Oral: unable to access Cardiovascular: S1, S2 normal. Respiratory: Good air entry, clear to auscultation bilaterally. GI: Soft, non-tender; bowel sounds normal. No peritoneal signs Musculoskeletal: .Right foot ulceration, no odor or drainage. + Dressing. Sacral decubitus ulcer, Scrotal abrasions, Penis skin lesions, left knee abrasions, + Left BKA Skin: same as above Hem/Lymphatic: No palpable cervical or supraclavicular nodes. No lymphangitis Psych: unable to access. . Neurological: Awake. Unintelligible speech - Constitutional Vitals: Vital Signs Temp Pulse Resp BP Pulse Ox 97.4 F L 91 H 20 167/89 94 07/19/18 08:30 07/19/18 09:45 07/19/18 09:45 07/19/18 09:45 07/19/18 09:45 Temperature -Last 24 Hours Temperature 97.4 F Temperature 98.0 F Temperature 98.3 F Temperature 98.0 F Temperature 97.6 F Temperature 97.6 F - Labs CBC & Chem 7: 07/19/18 04:10 07/19/18 04:10 Labs: Abnormal lab results 07/18/18 07/18/18 07/18/18 Range/Units 12:02 16:56 20:48 RBC (3.65-5.03) M/mm3 Hgb (11.8-15.2) gm/dl Hct (35.5-45.6) % RDW (13.2-15.2) % Seg Neuts % (Manual) (40.0-70.0) % Lymphocytes % (Manual) (13.4-35.0) % Seg Neutrophils # Man (1.8-7.7) K/mm3 Lymphocytes # (Manual) (1.2-5.4) K/mm3 Sodium (137-145) mmol/L Carbon Dioxide (22-30) mmol/L BUN (9-20) mg/dL Creatinine (0.8-1.5) mg/dL Glucose (75-100) mg/dL POC Glucose 146 H 218 H 135 H (70-105) Calcium (8.4-10.2) mg/dL 07/19/18 07/19/18 07/19/18 Range/Units 04:10 04:10 07:34 RBC 2.53 L (3.65-5.03) M/mm3 Hgb 7.8 L (11.8-15.2) gm/dl Hct 22.9 L (35.5-45.6) % RDW 17.4 H (13.2-15.2) % Seg Neuts % (Manual) 79.0 H (40.0-70.0) % Lymphocytes % (Manual) 9.0 L (13.4-35.0) % Seg Neutrophils # Man 8.0 H (1.8-7.7) K/mm3 Lymphocytes # (Manual) 0.9 L (1.2-5.4) K/mm3 Sodium 135 L (137-145) mmol/L Carbon Dioxide 20 L (22-30) mmol/L BUN 47 H (9-20) mg/dL Creatinine 1.7 H (0.8-1.5) mg/dL Glucose 102 H (75-100) mg/dL POC Glucose 121 H (70-105) Calcium 7.2 L (8.4-10.2) mg/dL
--- NOTE | 2018-07-19 09:58 | Progress Note ---
Assessment and Plan 1. Acute kidney injury: Vasomotor LUANA in the setting of volume depletion. Continue IV fluids. Renal function is improving. Renal US was negative for hydro. Avoid nephrotoxic agents. Meds dosage based on GFR. 2. FEN: Volume depletion, encourage PO fluids. Hypernatremia, improved. Metabolic acidosis, improving. Monitor lytes. 3. Sepsis: Bilateral pneumonia, UTI and R foot infection. IV Abx. 4. Acute hypoxic respiratory failure. 5. Acute metabolic encephalopathy. 6. Sacral decubitus ulcer. 7. DM type 2. Subjective Date of service: 07/19/18 Interval history: Patient was seen and examined at the bedside. Objective - Vital Signs Vital signs: Vital Signs - 12hr 07/19/18 07/19/18 07/19/18 00:09 05:24 08:28 Temperature 98.3 F 98.0 F Pulse Rate 84 93 H 94 H Pulse Rate [ Anterior Bilateral Throughout] Respiratory 18 18 20 Rate Respiratory Rate [Anterior Bilateral Throughout] Blood Pressure 129/68 152/78 167/89 Blood Pressure [Left] O2 Sat by Pulse 95 94 94 Oximetry 07/19/18 07/19/18 07/19/18 08:30 09:23 09:25 Temperature 97.4 F L Pulse Rate Pulse Rate [ 95 H Anterior Bilateral Throughout] Respiratory Rate Respiratory 18 Rate [Anterior Bilateral Throughout] Blood Pressure Blood Pressure [Left] O2 Sat by Pulse 94 Oximetry 07/19/18 07/19/18 07/19/18 09:33 09:40 09:45 Temperature Pulse Rate 91 H Pulse Rate [ 95 H Anterior Bilateral Throughout] Respiratory 20 20 Rate Respiratory 18 Rate [Anterior Bilateral Throughout] Blood Pressure Blood Pressure 167/89 [Left] O2 Sat by Pulse 94 Oximetry 07/19/18 07/19/18 09:46 09:47 Temperature Pulse Rate 94 H 94 H Pulse Rate [ Anterior Bilateral Throughout] Respiratory Rate Respiratory Rate [Anterior Bilateral Throughout] Blood Pressure 167/89 167/89 Blood Pressure [Left] O2 Sat by Pulse Oximetry - General Appearance General appearance: well-developed, appears stated age, other (not in distress) EENT: ATNC, PERRL, hearing intact Neck: supple Respiratory: Present: Clear to Ascultation Cardiology: regular, S1S2, no murmurs Gastrointestinal: normoactive bowel sounds, no tenderness, no distended Integumentary: ulcer, decubiti Neurologic: other (able to move extremities) Musculoskeletal: other (L AKA, R LE contractures) - Lab 07/19/18 04:10 07/19/18 04:10 Most recent lab results Calcium 7.2 mg/dL (8.4-10.2) L 07/19/18 04:10 Phosphorus 3.10 mg/dL (2.5-4.5) D 07/18/18 06:52 Magnesium 1.80 mg/dL (1.7-2.3) 07/17/18 03:57 66.5 mg/dL (0.1-20.0) H 07/13/18 16:30 44 mmol/L 07/13/18 16:30 Medications & Allergies - Medications Allergies/Adverse Reactions: Allergies No Known Allergies Allergy (Verified 06/21/15 09:22) Home Medications: Home Medications Medication Instructions Recorded Confirmed Last Taken Type Metoprolol [Lopressor TAB] 12.5 mg PO BID 08/03/14 07/12/18 07/24/14 History amLODIPine [Norvasc] 5 mg PO DAILY #0 08/03/14 07/12/18 07/24/14 History 5 AtorvaSTATin [Lipitor] 10 mg PO QHS 06/21/15 07/12/18 Unknown History Gabapentin [Neurontin] 100 mg PO BID 06/21/15 07/12/18 Unknown History Tamsulosin [Flomax] 0.4 mg PO DAILY 08/12/15 07/12/18 Unknown History traMADol [Ultram] 50 mg PO BID PRN 08/12/15 07/12/18 Unknown History Acetaminophen [Tylenol] 1,000 mg PO Q12HR 07/12/18 07/12/18 Unknown History Aspirin [Adult Aspirin] 81 mg PO DAILY 07/12/18 07/12/18 Unknown History Citalopram [celeXA] 10 mg PO QAM 07/12/18 07/12/18 Unknown History Losartan [Cozaar] 25 mg PO QDAY 07/12/18 07/12/18 Unknown History Mirtazapine [Remeron] 15 mg PO QHS 07/12/18 07/12/18 Unknown History Multivit,Calc,Mins/Iron/Folic 1 each PO DAILY 07/12/18 07/12/18 Unknown History [Thera-M Caplet] Sennosides Tab [Senokot] 17.2 mg PO HS 07/12/18 07/12/18 Unknown History ALBUTEROL NEB's [Proventil 0.083% 2.5 mg IH Q4HRT PRN nebu 07/19/18 Unknown Rx NEBS] Aspirin [Aspirin BABY CHEW TAB] 81 mg PO QDAY tab.chew 07/19/18 Unknown Rx Carvedilol [Coreg] 6.25 mg PO BID tablet 07/19/18 Unknown Rx Famotidine [Pepcid] 10 mg PO BID tablet 07/19/18 Unknown Rx Ipratropium/Albuterol Sulfate 1 ampul IH TIDRT ampul.neb 07/19/18 Unknown Rx [DUONEB *Not for PRN Use*] Prednisone [predniSONE 10 mg 10 mg PO .TAPER #1 tab.ds.pk 07/19/18 Unknown Rx (6-Day Pack, 21 Tabs)] amLODIPine [Norvasc] 10 mg PO QDAY tablet 07/19/18 Unknown Rx levoFLOXacin [Levaquin TAB] 500 mg PO Q48H #14 tablet 07/19/18 Unknown Rx oxyCODONE /ACETAMINOPHEN [Percocet 1 tab PO Q6H PRN #14 tablet 07/19/18 Unknown Rx 5/325 mg] Active Medications: Generic Name Dose Route Start Last Admin Trade Name Freq PRN Reason Stop Dose Admin Acetaminophen 650 mg 07/12/18 21:52 Tylenol PO Q4H PRN Pain MILD(1-3)/Fever >100.5/SIMONS Albuterol 2.5 mg 07/16/18 12:00 Proventil IH Q4HRT PRN Shortness Of Breath Albuterol/Ipratropium 1 ampul 07/16/18 14:00 07/19/18 09:25 Duoneb *Not For Prn Use* IH 1 ampul TIDRT LIVIA Administration Amlodipine Besylate 10 mg 07/17/18 11:00 07/19/18 09:47 Norvasc PO 10 mg QDAY LIVIA Administration Aspirin 81 mg 07/18/18 11:00 07/19/18 09:40 Baby Aspirin PO 81 mg QDAY LIVIA Administration Atorvastatin Calcium 10 mg 07/12/18 22:00 07/18/18 22:15 Lipitor PO 10 mg QHS LIVIA Administration Carvedilol 6.25 mg 07/17/18 11:00 07/19/18 09:46 Coreg PO 6.25 mg BID LIVIA Administration Citalopram Hydrobromide 10 mg 07/13/18 10:00 07/19/18 09:39 Celexa PO 10 mg QAM LIVIA Administration Famotidine 10 mg 07/12/18 22:30 07/19/18 09:39 Pepcid PO 10 mg BID LIVIA Administration Ceftriaxone Sodium 2 gm in 100 mls @ 200 mls/hr 07/12/18 22:00 07/18/18 22:11 Rocephin/Ns 2 Gm/100 Ml IV 200 mls/hr Q24HR@2200 LIVIA Administration Protocol Metronidazole 500 mg in 100 mls @ 100 mls/hr 07/14/18 18:00 07/19/18 03:19 Flagyl 500 Mg/100 Ml IV 100 mls/hr Q8H LIVIA Administration Protocol Dextrose 1,000 mls @ 100 mls/hr 07/15/18 11:00 07/19/18 09:37 D5w IV 100 mls/hr DIRECT LIVIA Administration Insulin Human Lispro 0 unit 07/13/18 07:30 07/19/18 07:30 Humalog SUB-Q Not Given ACHS LIVIA Protocol Labetalol HCl 10 mg 07/17/18 09:58 Normodyne IV Q6H PRN Hypertension Methylprednisolone Sodium Succinate 40 mg 07/17/18 10:00 07/19/18 09:39 Solu-Medrol IV 40 mg Q24HR LIVIA Administration Mirtazapine 15 mg 07/12/18 22:00 07/18/18 22:15 Remeron PO 15 mg QHS LIVIA Administration Morphine Sulfate 2 mg 07/12/18 21:53 07/13/18 17:54 Morphine IV 2 mg Q4H PRN Administration Pain, Moderate (4-6) Ondansetron HCl 4 mg 07/12/18 21:52 Zofran IV Q8H PRN Nausea And Vomiting Oxycodone/Acetaminophen 1 tab 07/12/18 21:53 07/19/18 09:40 Percocet 5/325 PO 1 tab Q6H PRN Administration Pain, Moderate (4-6) Sodium Chloride 10 ml 07/12/18 22:00 07/19/18 09:39 Sodium Chloride Flush Syringe 10 Ml IV 10 ml BID LIVIA Administration Sodium Chloride 10 ml 07/12/18 21:52 Sodium Chloride Flush Syringe 10 Ml IV PRN PRN LINE FLUSH Sodium Phosphate 250 mg 07/17/18 10:00 07/19/18 09:42 K-Phos Neutral PO 250 mg TID LIVIA Administration Tamsulosin HCl 0.4 mg 07/13/18 22:00 07/18/18 22:15 Flomax PO 0.4 mg QHS LIVIA Administration
[2018-07-19] MEDS ORDERED: D5/0.45NS 1,000 ML IV SCH (11:00)
--- NOTE | 2018-07-19 14:22 | Discharge Summary ---
Providers - Providers Date of Admission: 07/12/18 14:35 Date of discharge: 07/19/18 Attending physician: SUGAR CALL 07/12/18 22:11 Consult to Physician [CONS] Routine Comment: Consulting Provider: RAMNO VANESSA Physician Instructions: Reason For Exam: LUANA 07/13/18 05:28 Consult to Wound/ET Nurse [CONS] Routine Reason For Exam: wound eval - pressure ulcer 07/13/18 08:22 Consult to Physician [CONS] Routine Comment: Consulting Provider: PADMINI RAZO Physician Instructions: i notified Reason For Exam: Sepsis too many areas to count 07/14/18 14:25 Consult to Physician [CONS] Routine Comment: Consulting Provider: ANGELLA ROBLES Physician Instructions: Reason For Exam: infected ulcers 07/15/18 10:13 Speech Therapy Evaluation and Treat [CONS] Routine Reason For Exam: Difficulty of swallowing/ coughing 07/16/18 11:54 Consult to Mental Health [CONS] Routine Reason For Exam: decision capacity for amputation Place consult to:: mental health Notified:: Heena MOLINA Phone number called:: [phone]. [phone] Was contact made?: Yes If yes, spoke with:: Priya Time called:: 13:05 07/16/18 11:55 Consult to Physician [CONS] Routine Comment: Consulting Provider: JOSE ROSADO Physician Instructions: Reason For Exam: medical decision capacity aphasic patient Primary care physician: SILAS BARONE Hospitalization Reason for admission: fever short of breath Condition: Stable Pertinent studies: Chest x-ray Renal ultrasound Foot x-ray Hospital course: Patient is a 63 yo man from [place] with h/o s/p left AKA, hypertension, COPD, diet controlled DM type 2, Dementia, CVA with aphasia, bilateral leg contractures who presented to [facility] ED with fevers, sob. pCXR showed New/increased left more than right basilar hazy opacities/pneumonias. Patient also noted to have multiple pressure shoulder problems in different locations of his extremities. Patient was placed on IV antibiotics, . A breathing treatment, supportive care, consulted ID for antibiotic recommendations. He improved clinically with the medical management. He was suspected to have right foot osteomyelitis and ID recommended to obtained MRI of the foot, which could not be done as he could not lay flat. General surgery was consulted and he was recommended for right foot amputation. But patient brother and patient both denied. ID then recommended to discharge the patient noted with total 4 weeks of oral antibiotics and outpatient follow-up with wound care. Patient was then discharged back to care home in stable condition. Discharge diagnosis and management /Sepsis due to bilateral pneumonia, UTI and possible osteomylitis: - treated with IV abx, consulted ID, abx adjusted for discharge /Acute hypoxic respiratory failure - due to PNA and sepsis - required 100% NRB: weaned off to nasal canula 02, continue nebs /Right foot ulcer, suspecting osteomylitis - planned for Right AKA, Dr Robles consulted - family and patient both refusing amputation for now - Could not perform MRI of the right foot as he could not lay straight - Plan to treat with IV/po antibiotics for now for total 6 weeks,wound care and outpatient follow-up /Chronic encephalopathy due to previous CVA with aphasia, underlying dementia. - patient was not documented as confused per ER records and h/P and he is aphasic and at his baseline per the family /Anemia of CD: stopped sq heparin, monitored h/H, had no active GI bleeding. /Hypernatremia: improved with IVF, likely from dehydration /Acute Exacerbation COPD: treated with iv steroids, abx and nebs /Acute kidney injury on CKD, - likely vasomotor nephropathy: stopped motrin, stopped losartan, cont ivf, monitor bmp closely, Nephrology consulted - Renal ultrasound consistent with medical renal disease - Renal function remained stable on discharge /Severe Protein Calorie malnutrition, - poa, bmi 16.5, albumin 1.9: consulted [employer] /Sacral decubitus ulcer at least stage 3/scrotal abrasions/penis skin lesions/left knee abrasions: wound care consulted /DM type 2, borderline, a1c 6.3: continue to monitor BG /Thrombocytopenia, likely from sepsis, heparin stopped, monitored cbc closely /History of CVA with a aphasia, stable DVT prophylaxis, on SCD Hospitalist Physical Gen: cachetic, ill appearing, chronically disable, no acute respiratory distress, NAD, Orientated x 1 HEENT: NCAT, EOMI, PERRL, OP Clear Neck: supple, no adenopathy, no thyromegaly, no JVD CVS/Heart: Regular tachycardia, normal S1S2, pulses present bilaterally Chest/Lungs: coarse bs bilateral, diminished bs bilateral, Symmetrical chest expansion, good air entry bilaterally GI/Abdomen: soft, NTND, good bowel sounds, no guarding or rebound /Bladder: no suprapubic tenderness, no CVA or paraspinal tenderness Extermity/Skin: multiple different areas of skin breakdowns, see admission photos, MSK: left AKA, contracted legs, Neuro: CN 2-12 grossly intact, follow simple commands, communicate with gesture Psych: Cooperative Disposition: DC/TX-03 SNF W [facility] Time spent for discharge: 35 minutes Core Measure Documentation - Palliative Care Palliative Care/ Comfort Measures: Not Applicable - Core Measures Any of the following diagnoses?: history only Exam - Constitutional Vitals: Temp Pulse Resp BP Pulse Ox 97.9 F 85 20 98/54 99 07/19/18 11:52 07/19/18 11:51 07/19/18 11:51 07/19/18 11:51 07/19/18 11:51 Plan Activity: up only with assistance Weight Bearing Status: Non-Weight Bearing Diet: low fat Wound: per wound nurse instructions Follow up with: SILAS BARONE MD [Primary Care Provider] - 3-5 Days RAMON VANESSA MD [Staff Physician] - 7 Days Prescriptions: levoFLOXacin [Levaquin TAB] 500 mg PO Q48H #14 tablet oxyCODONE /ACETAMINOPHEN [Percocet 5/325 mg] 1 tab PO Q6H PRN #14 tablet PRN Reason: Pain, Moderate (4-6) Prednisone [predniSONE 10 mg (6-Day Pack, 21 Tabs)] 10 mg PO .TAPER #1 tab.ds.pk
[2018-07-19 16:18] VITALS: BP 137/78
== END 2018-07-19 16:25 | DRG 871 ==
LOC: ED 12:01 → CC1 14:35 → 4A 19:40
PROVIDERS: ADMIT Internal Medicine; ATTEND Internal Medicine
DX: A41.9 Sepsis, unspecified organism (principal); J96.01 Acute respiratory failure with hypoxia; G93.41 Metabolic encephalopathy; N17.0 Acute kidney failure with tubular necrosis; L89.153 Pressure ulcer of sacral region, stage 3; E43 Unspecified severe protein-calorie malnutrition; L89.894 Pressure ulcer of other site, stage 4; J18.1 Lobar pneumonia, unspecified organism; J44.9 Chronic obstructive pulmonary disease, unspecified; F03.90 Unspecified dementia, unspecified severity, without behavioral disturbance, psychotic disturbance, mood disturbance, and anxiety; E11.69 Type 2 diabetes mellitus with other specified complication; N39.0 Urinary tract infection, site not specified; M86.9 Osteomyelitis, unspecified; E11.621 Type 2 diabetes mellitus with foot ulcer; L97.519 Non-pressure chronic ulcer of other part of right foot with unspecified severity; D63.8 Anemia in other chronic diseases classified elsewhere; E87.0 Hyperosmolality and hypernatremia; J44.1 Chronic obstructive pulmonary disease with (acute) exacerbation; J44.0 Chronic obstructive pulmonary disease with (acute) lower respiratory infection; I12.9 Hypertensive chronic kidney disease with stage 1 through stage 4 chronic kidney disease, or unspecified chronic kidney disease; N18.9 Chronic kidney disease, unspecified; E11.22 Type 2 diabetes mellitus with diabetic chronic kidney disease; L98.9 Disorder of the skin and subcutaneous tissue, unspecified; S80.212A Abrasion, left knee, initial encounter; D69.6 Thrombocytopenia, unspecified; S30.813A Abrasion of scrotum and testes, initial encounter; F32.9 Major depressive disorder, single episode, unspecified; I25.10 Atherosclerotic heart disease of native coronary artery without angina pectoris; E11.51 Type 2 diabetes mellitus with diabetic peripheral angiopathy without gangrene; E78.5 Hyperlipidemia, unspecified; E11.42 Type 2 diabetes mellitus with diabetic polyneuropathy; N40.0 Benign prostatic hyperplasia without lower urinary tract symptoms; Z68.1 Body mass index [BMI] 19.9 or less, adult; Z89.612 Acquired absence of left leg above knee; Z86.73 Personal history of transient ischemic attack (TIA), and cerebral infarction without residual deficits; Y93.89 Activity, other specified; Y92.89 Other specified places as the place of occurrence of the external cause; Y99.8 Other external cause status; Z79.899 Other long term (current) drug therapy; Z82.49 Family history of ischemic heart disease and other diseases of the circulatory system
CPT/HCPCS: 36415; 71045; 76770; 80048; 80053; 80202; 81001; 82140; 82570; 82607; 82747; 82805; 82962; 83036; 83550; 83735; 84100; 84300; 85007; 85014; 85018; 85025; 85027; 85610; 86140; 87040; 87086; 87116; 89050; 93005; 93010; 94640; 94760; G0378; A9270-GY; J0456; J0692; J0696; J1644; J1815; J2270; J2920; J2930; J3370; J7030; J7040; J7050; J7070

== ENCOUNTER 2018-07-30 21:37 | Emergency (ER) | payer MEDICAID ==
--- NOTE | 2018-07-30 22:17 | Emergency Department Report ---
ED Altered Mental Status HPI - General Chief Complaint: Altered Mental Status Stated Complaint: SEPSIS Time Seen by Provider: 07/30/18 21:52 Source: EMS Mode of arrival: Stretcher Limitations: Altered Mental Status - History of Present Illness Initial Comments: Mr. Willoughby is a 63 yo male with hx of CVA, encephalopathy, aphasia, dementia, COPD, borderline DM, COPD, malnutrition right foot ulcer hemiplegia who presents with lethargy and low oxygen saturations at [facility]. Recently discharged from this hospital for acute hypoxic respiratory failure, sepsis bilateral pneumonia UTI possible osteomyelitis. For the past several days he has not eaten. He is not speaking as frequently. He will say some works. He says yes or no to my questions in frail manner. His twin brother at the bedside feels that he is depressed. Brother has been dep ressed since consideration for amputation of right foot was considered. He has previous amputation of the left extremity over 10 years ago. He is currently taking Levaquin according to alf facility documentation Brother also states that he has been on nasal cannula for the past week or so. He will not keep the nasal cannula on. MD Complaint: decreased responsiveness, other (failure to thrive) -: Gradual, days(s) Severity: mild Consistency of Symptoms: waxing and waning, getting worse Context: other (recent discharge for sepsis UTI osteomyelitis respiratory failure) Associated Symptoms: other (patient gives limited history) - Related Data Home Medications Medication Instructions Recorded Confirmed Last Taken Metoprolol [Lopressor TAB] 12.5 mg PO BID 08/03/14 07/30/18 07/30/18 amLODIPine [Norvasc] 5 mg PO DAILY #0 08/03/14 07/30/18 07/30/18 AtorvaSTATin [Lipitor] 10 mg PO QHS 06/21/15 07/30/18 07/30/18 Gabapentin [Neurontin] 100 mg PO BID 06/21/15 07/30/18 07/30/18 Tamsulosin [Flomax] 0.4 mg PO DAILY 08/12/15 07/30/18 07/30/18 traMADol [Ultram] 50 mg PO BID PRN 08/12/15 07/30/18 07/30/18 Acetaminophen [Tylenol] 1,000 mg PO Q12HR 07/12/18 07/30/18 07/30/18 Aspirin [Adult Aspirin] 81 mg PO DAILY 07/12/18 07/30/18 07/30/18 Citalopram [celeXA] 10 mg PO QAM 07/12/18 07/30/18 07/30/18 Losartan [Cozaar] 25 mg PO QDAY 07/12/18 07/30/18 07/30/18 Mirtazapine [Remeron 15mg TAB] 15 mg PO QHS 07/12/18 07/30/18 07/30/18 Multivit,Calc,Mins/Iron/Folic 1 each PO DAILY 07/12/18 07/30/18 07/30/18 [Thera-M Caplet] Sennosides Tab [Senokot] 17.2 mg PO HS 07/12/18 07/30/18 07/30/18 Previous Rx's Medication Instructions Recorded Last Taken Type ALBUTEROL NEB's [Proventil 0.083% 2.5 mg IH Q4HRT PRN nebu 07/19/18 07/30/18 Rx NEBS] Aspirin [Aspirin BABY CHEW TAB] 81 mg PO QDAY tab.chew 07/19/18 07/30/18 Rx Carvedilol [Coreg] 6.25 mg PO BID tablet 07/19/18 07/30/18 Rx Famotidine [Pepcid] 10 mg PO BID tablet 07/19/18 07/30/18 Rx Ipratropium/Albuterol Sulfate 1 ampul IH TIDRT ampul.neb 07/19/18 07/30/18 Rx [DUONEB *Not for PRN Use*] Prednisone [predniSONE 10 mg 10 mg PO .TAPER #1 tab.ds.pk 07/19/18 07/30/18 Rx (6-Day Pack, 21 Tabs)] amLODIPine [Norvasc] 10 mg PO QDAY tablet 07/19/18 07/30/18 Rx levoFLOXacin [Levaquin TAB] 500 mg PO Q48H #14 tablet 07/19/18 07/30/18 Rx oxyCODONE /ACETAMINOPHEN [Percocet 1 tab PO Q6H PRN #14 tablet 07/19/18 07/30/18 Rx 5/325 mg] Allergies Allergy/AdvReac Type Severity Reaction Status Date / Time No Known Allergies Allergy Verified 06/21/15 09:22 ED Review of Systems ROS: Stated complaint: SEPSIS Other details as noted in HPI Comment: Unobtainable due to pts medical conditions (unable to be obtained by patient) ED Past Medical Hx - Past Medical History Previous Medical History?: Yes Hx Hypertension: Yes Hx CVA: Yes Hx Heart Attack/AMI: No Hx Congestive Heart Failure: No Hx Diabetes: Yes Hx Deep Vein Thrombosis: No Hx Pulmonary Embolism: No Hx Liver Disease: No Hx Renal Disease: No Hx Seizures: No Hx Kidney Stones: No Hx Psychiatric Treatment: Yes (depression) Hx Asthma: No Hx COPD: Yes Hx Tuberculosis: No Hx Dementia: Yes Additional medical history: CAD, hyperlipidemia, aphasia, L AKA. Prostate disorder, peripheral vascular disease - Surgical History Hx Coronary Stent: No Hx Pacemaker: No Hx Internal Defibrillator: No Additional Surgical History: explant infected fem-fem bypass graft 07/14/14 - Social History Smoking Status: Unknown if ever smoked Substance Use Type: None - Medications Home Medications: Home Medications Medication Instructions Recorded Confirmed Last Taken Type Metoprolol [Lopressor TAB] 12.5 mg PO BID 08/03/14 07/30/18 07/30/18 History amLODIPine [Norvasc] 5 mg PO DAILY #0 08/03/14 07/30/18 07/30/18 History AtorvaSTATin [Lipitor] 10 mg PO QHS 06/21/15 07/30/18 07/30/18 History Gabapentin [Neurontin] 100 mg PO BID 06/21/15 07/30/18 07/30/18 History Tamsulosin [Flomax] 0.4 mg PO DAILY 08/12/15 07/30/18 07/30/18 History traMADol [Ultram] 50 mg PO BID PRN 08/12/15 07/30/18 07/30/18 History Acetaminophen [Tylenol] 1,000 mg PO Q12HR 07/12/18 07/30/18 07/30/18 History Aspirin [Adult Aspirin] 81 mg PO DAILY 07/12/18 07/30/18 07/30/18 History Citalopram [celeXA] 10 mg PO QAM 07/12/18 07/30/18 07/30/18 History Losartan [Cozaar] 25 mg PO QDAY 07/12/18 07/30/18 07/30/18 History Mirtazapine [Remeron 15mg TAB] 15 mg PO QHS 07/12/18 07/30/18 07/30/18 History Multivit,Calc,Mins/Iron/Folic 1 each PO DAILY 07/12/18 07/30/18 07/30/18 History [Thera-M Caplet] Sennosides Tab [Senokot] 17.2 mg PO HS 07/12/18 07/30/18 07/30/18 History ALBUTEROL NEB's [Proventil 0.083% 2.5 mg IH Q4HRT PRN nebu 07/19/18 07/30/18 07/30/18 Rx NEBS] Aspirin [Aspirin BABY CHEW TAB] 81 mg PO QDAY tab.chew 07/19/18 07/30/18 07/30/18 Rx Carvedilol [Coreg] 6.25 mg PO BID tablet 07/19/18 07/30/18 07/30/18 Rx Famotidine [Pepcid] 10 mg PO BID tablet 07/19/18 07/30/18 07/30/18 Rx Ipratropium/Albuterol Sulfate 1 ampul IH TIDRT ampul.neb 07/19/18 07/30/18 0 07/30/18 Rx [DUONEB *Not for PRN Use*] Prednisone [predniSONE 10 mg 10 mg PO .TAPER #1 tab.ds.pk 07/19/18 07/30/18 07/30/18 Rx (6-Day Pack, 21 Tabs)] amLODIPine [Norvasc] 10 mg PO QDAY tablet 07/19/18 07/30/18 07/30/18 Rx levoFLOXacin [Levaquin TAB] 500 mg PO Q48H #14 tablet 07/19/18 07/30/18 07/30/18 Rx oxyCODONE /ACETAMINOPHEN [Percocet 1 tab PO Q6H PRN #14 tablet 07/19/18 07/30/18 07/30/18 Rx 5/325 mg] ED Physical Exam - General Limitations: Altered Mental Status General appearance: alert, in no apparent distress, other (will make eye contact and will answer yes or no) - Head Head exam: Present: atraumatic, normocephalic - Eye Eye exam: Present: normal appearance. Absent: scleral icterus, conjunctival injection - ENT ENT exam: Present: mucous membranes dry - Neck Neck exam: Present: normal inspection, full ROM. Absent: tenderness, meningismus - Respiratory Respiratory exam: Present: rales, rhonchi. Absent: respiratory distress, wheezes - Cardiovascular Cardiovascular Exam: Present: regular rate, normal rhythm, normal heart sounds. Absent: systolic murmur, diastolic murmur - GI/Abdominal GI/Abdominal exam: Present: soft. Absent: distended, tenderness, guarding, rebound - Extremities Exam Extremities exam: Present: other (current cachectic contracted extremities with 3 cm right foot ulcer on the plantar surface without signs of infection) - Neurological Exam Neurological exam: Present: alert, other (makes meaningful interaction) - Psychiatric Psychiatric exam: Present: depressed, flat affect - Skin Skin exam: Present: pallor, other (large sacral decubitus ulcer covered in feces) ED Course Vital Signs 07/30/18 07/30/18 07/30/18 21:42 21:44 21:45 Temperature 99.7 F H Pulse Rate 91 H 92 H Respiratory 15 18 Rate Blood Pressure 99/51 96/54 O2 Sat by Pulse 94 96 89 Oximetry 07/30/18 07/30/18 07/30/18 22:00 22:15 22:30 Temperature Pulse Rate 95 H 89 86 Respiratory 17 16 15 Rate Blood Pressure 96/54 87/51 O2 Sat by Pulse 95 93 92 Oximetry 07/30/18 07/30/18 07/30/18 22:45 23:00 23:15 Temperature Pulse Rate 82 86 89 Respiratory 16 14 18 Rate Blood Pressure 88/50 85/55 88/50 O2 Sat by Pulse 94 96 76 L Oximetry 07/30/18 23:30 Temperature Pulse Rate 86 Respiratory Rate Blood Pressure 101/55 O2 Sat by Pulse 89 Oximetry - Lab Data Result diagrams: 07/30/18 22:00 07/30/18 22:00 Lab Results 07/30/18 07/30/18 07/30/18 Range/Units 22:00 22:00 22:00 WBC 3.7 L (4.5-11.0) K/mm3 RBC 2.34 L (3.65-5.03) M/mm3 Hgb 7.4 L (11.8-15.2) gm/dl Hct 23.7 L (35.5-45.6) % MCV 101 H (84-94) fl MCH 32 (28-32) pg MCHC 31 L (32-34) % RDW 20.0 H (13.2-15.2) % Plt Count 138 L (140-440) K/mm3 Lymph % (Auto) 21.5 (13.4-35.0) % [place] % (Auto) 6.6 (0.0-7.3) % Eos % (Auto) 2.6 (0.0-4.3) % Baso % (Auto) 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 Lymph # 0.8 L (1.2-5.4) K/mm3 [place] # 0.2 (0.0-0.8) K/mm3 Eos # 0.1 (0.0-0.4) K/mm3 Baso # 0.0 (0.0-0.1) K/mm3 Seg Neutrophils % 69.0 (40.0-70.0) % Seg Neutrophils # 2.5 (1.8-7.7) K/mm3 Sodium 144 (137-145) mmol/L Potassium 4.6 (3.6-5.0) mmol/L Chloride 112.7 H (98-107) mmol/L Carbon Dioxide 20 L (22-30) mmol/L Anion Gap 16 mmol/L BUN 54 H (9-20) mg/dL Creatinine 2.9 H (0.8-1.5) mg/dL Estimated GFR 22 ml/min BUN/Creatinine Ratio 19 % Glucose 107 H (75-100) mg/dL Lactic Acid 1.60 (0.7-2.0) mmol/L Calcium 7.5 L (8.4-10.2) mg/dL Total Bilirubin 0.30 (0.1-1.2) mg/dL AST 29 (5-40) units/L ALT 14 (7-56) units/L Alkaline Phosphatase 70 (35-129) units/L Total Protein 4.4 L (6.3-8.2) g/dL Albumin 2.0 L (3.9-5) g/dL Albumin/Globulin Ratio 0.8 % - Medical Decision Making Mr. Manrique presents with depressed mood and poor appetite. He appears to be at his normal mental status. According to nurse report PEG tube has been recently removed. Will likely need replacement upon discussion with brother. Upon lab review, anemia and renal insufficiency, known and present. Dc'd back to SNF without acute illness present. HE is currently on levaquin with recent hx of pneumonia, UTI and possible osteomyelitis. Critical care attestation.: If time is entered above; I have spent that time in minutes in the direct care of this critically ill patient, excluding procedure time. ED Disposition Clinical Impression: Poor appetite, Depressed mood Disposition: DC/TX-70 ANOTHER TYPE HLTHCARE Is pt being admited?: No Does the pt Need Aspirin: No Condition: Stable
[2018-07-30] MEDS ORDERED: NACL 0.9% 1000 ML 1,000 ML IV ONE (22:18)
[2018-07-30 22:48] LABS: Eosinophils # (Auto) 0.1 K/mm3 (0.0-0.4); Eosinophils % (Auto) 2.6 % (0.0-4.3); Hematocrit 23.7 % (35.5-45.6); Hemoglobin 7.4 gm/dl (11.8-15.2); Lymphocytes # (Auto) 0.8 K/mm3 (1.2-5.4); Lymphocytes % (Auto) 21.5 % (13.4-35.0); Mean Corpuscular HGB Conc 31 % (32-34); Mean Corpuscular Volume 101 fl (84-94); Monocytes # (Auto) 0.2 K/mm3 (0.0-0.8); Monocytes % (Auto) 6.6 % (0.0-7.3); Platelet Count 138 K/mm3 (140-440); Red Blood Count 2.34 M/mm3 (3.65-5.03)
[2018-07-30 22:55] LABS: Calcium 7.5 mg/dL (8.4-10.2)
[2018-07-31] MEDS ORDERED: NACL 0.9% 1000 ML 1,000 ML IV ONE (00:08)
[2018-07-31 03:37] VITALS: BP 102/55
== END 2018-07-31 07:38 | disposition other institution (70) ==
LOC: ED 21:37
DX: F32.9 Major depressive disorder, single episode, unspecified (principal); R63.0 Anorexia; I10 Essential (primary) hypertension; E11.9 Type 2 diabetes mellitus without complications; J44.9 Chronic obstructive pulmonary disease, unspecified; F03.90 Unspecified dementia, unspecified severity, without behavioral disturbance, psychotic disturbance, mood disturbance, and anxiety; I25.10 Atherosclerotic heart disease of native coronary artery without angina pectoris; E78.5 Hyperlipidemia, unspecified; I73.9 Peripheral vascular disease, unspecified
CPT/HCPCS: 36415; 80053; 82140; 85025; 87040; 93005; 93010; 96360; 96361; 99284; J7030

== ENCOUNTER 2018-08-02 16:01 | Emergency (ER) | payer MEDICAID ==
--- NOTE | 2018-08-02 16:49 | Emergency Department Report ---
HPI - General Time Seen by Provider: 08/02/18 16:10 - HPI HPI: 63-year-old male presents to the emergency department from [facility] in cardiac arrest. EMS arrived and found the patient pulseless and in asystole. He was given a Jose airway and ACLS protocol was initiated with chest compressions and he was given epinephrine. They continued CPR for about 40 minutes prior to arrival. In reviewing his records, he appears to have a history of CVA, left above-knee amputation, and questionable COPD. The patient does present to our emergency department unresponsive, pulseless and in asystole as well. He is a poor historian secondary to his acute medical condition. It is unknown when the patient was last seen awake and alive. Apparently, per EMS, the last set of vitals were obtained in about 9 AM this morning. ED Past Medical Hx - Past Medical History Hx Hypertension: Yes Hx CVA: Yes Hx Heart Attack/AMI: No Hx Congestive Heart Failure: No Hx Diabetes: Yes Hx Deep Vein Thrombosis: No Hx Pulmonary Embolism: No Hx Liver Disease: No Hx Renal Disease: No Hx Seizures: No Hx Kidney Stones: No Hx Psychiatric Treatment: Yes (depression) Hx Asthma: No Hx COPD: Yes Hx Tuberculosis: No Hx Dementia: Yes Additional medical history: CAD, hyperlipidemia, aphasia, L AKA. Prostate disorder, peripheral vascular disease - Surgical History Hx Coronary Stent: No Hx Pacemaker: No Hx Internal Defibrillator: No Additional Surgical History: explant infected fem-fem bypass graft 07/14/14 - Social History Smoking Status: Unknown if ever smoked Substance Use Type: None - Medications Home Medications: Home Medications Medication Instructions Recorded Confirmed Last Taken Type Metoprolol [Lopressor TAB] 12.5 mg PO BID 08/03/14 07/30/18 07/30/18 History amLODIPine [Norvasc] 5 mg PO DAILY #0 08/03/14 07/30/18 07/30/18 History AtorvaSTATin [Lipitor] 10 mg PO QHS 06/21/15 07/30/18 07/30/18 History Gabapentin [Neurontin] 100 mg PO BID 06/21/15 07/30/18 07/30/18 History Tamsulosin [Flomax] 0.4 mg PO DAILY 08/12/15 07/30/18 07/30/18 History traMADol [Ultram] 50 mg PO BID PRN 06/11/1807/30/18 07/30/18 History Acetaminophen [Tylenol] 1,000 mg PO Q12HR 07/12/18 07/30/18 07/30/18 History Aspirin [Adult Aspirin] 81 mg PO DAILY 07/12/18 07/30/18 07/30/18 History Citalopram [celeXA] 10 mg PO QAM 07/12/18 07/30/18 07/30/18 History Losartan [Cozaar] 25 mg PO QDAY 07/12/18 07/30/18 07/30/18 History Mirtazapine [Remeron 15mg TAB] 15 mg PO QHS 07/12/18 07/30/18 07/30/18 History Multivit,Calc,Mins/Iron/Folic 1 each PO DAILY 07/12/18 07/30/18 07/30/18 History [Thera-M Caplet] Sennosides Tab [Senokot] 17.2 mg PO HS 07/12/18 07/30/18 07/30/18 History ALBUTEROL NEB's [Proventil 0.083% 2.5 mg IH Q4HRT PRN nebu 07/19/18 07/30/18 07/30/18 Rx NEBS] Aspirin [Aspirin BABY CHEW TAB] 81 mg PO QDAY tab.chew 07/19/18 07/30/18 07/30/18 Rx Carvedilol [Coreg] 6.25 mg PO BID tablet 07/19/18 07/30/18 07/30/18 Rx Famotidine [Pepcid] 10 mg PO BID tablet 07/19/18 07/30/18 07/30/18 Rx Ipratropium/Albuterol Sulfate 1 ampul IH TIDRT ampul.neb 07/19/18 07/30/18 07/30/18 Rx [DUONEB *Not for PRN Use*] Prednisone [predniSONE 10 mg 10 mg PO .TAPER #1 tab.ds.pk 07/19/18 07/30/18 07/30/18 Rx (6-Day Pack, 21 Tabs)] amLODIPine [Norvasc] 10 mg PO QDAY tablet 07/19/18 07/30/18 07/30/18 Rx levoFLOXacin [Levaquin TAB] 500 mg PO Q48H #14 tablet 07/19/18 07/30/18 07/30/18 Rx oxyCODONE /ACETAMINOPHEN [Percocet 1 tab PO Q6H PRN #14 tablet 07/19/18 07/30/18 07/30/18 Rx 5/325 mg] ED Review of Systems ROS: Stated complaint: CARDIAC ARREST Other details as noted in HPI Comment: Unobtainable due to pts medical conditions Physical Exam - Physical Exam Physical Exam: GENERAL: Patient is ill-appearing and unresponsive. HENT: Normocephalic. Atraumatic. Patient has moist mucous membranes. EYES: Pupils are fixed and dilated. NECK: Supple. Trachea appears midline. CHEST/LUNGS: There are no spontaneous respirations. HEART/CARDIOVASCULAR: There are no spontaneous heart sounds. ABDOMEN: Abdomen is soft. There is no abdominal distention. SKIN: Skin is cool but dry. NEURO: Unresponsive. Does not withdraw to painful stimuli. Does not follow any commands. MUSCULOSKELETAL: There is no obvious deformity. Chronic left above-knee amputation. No palpable femoral or radial pulses. - Intubation Time Out Performed: No Sedative: none Laryngoscope: May Size: 3 ET Tube Size: 7.5 Tube Secured Depth (cm): 23 Tube Secured Location: lips Tube Placement Confirmation: visualized tube passing t, equal breath sounds bilat, confirmation by capnometr Intubation Complications: none ED Medical Decision Making - Medical Decision Making Patient came in in cardiac arrest after having been pulseless and unresponsive for about 40 minutes prior. He was still in asystole upon arrival. We immediately moved him to our [facility] and continued high efficiency chest compressions. I removed the Jose airway and orotracheally intubated him. The patient was given a few rounds of epinephrine and one of sodium bicarbonate. During the second bolus and rhythm check, the patient appeared to be in V. fib and was given a 200 J shock. On the next rhythm check, the patient was back in asystole. At this point the patient was pulseless for close to one hour and there was very little chance for return of spontaneous circulation. Time of was called at 1608. I spoke with the patient's brother and [id number] and notified them of the patient's expiration. There are given a chance to come back and see him in the emergency department. Critical Care Time: Yes Critical care time in (mins) excluding proc time.: 15 Critical care attestation.: If time is entered above; I have spent that time in minutes in the direct care of this critically ill patient, excluding procedure time. Critical care time was spent on this patient during his initial evaluation in supervision of ACLS protocol, as well as a discussion with the patient's family. Critical Care Time: 15 minutes ED Disposition Clinical Impression: Cardiac arrest Respiratory failure Qualifiers: Chronicity: acute Respiratory failure complication: unspecified whether with hypoxia or hypercapnia Qualified Code(s): J96.00 - Acute respiratory failure, unspecified whether with hypoxia or hypercapnia Disposition: DC-20 Is pt being admited?: No
[2018-08-03] MEDS ORDERED: ADRENALIN ONE (14:14)
== END 2018-08-02 19:51 ==
LOC: ED 16:01
DX: I50.9 Heart failure, unspecified (principal); J96.00 Acute respiratory failure, unspecified whether with hypoxia or hypercapnia; I10 Essential (primary) hypertension; E11.9 Type 2 diabetes mellitus without complications; J44.9 Chronic obstructive pulmonary disease, unspecified; I25.10 Atherosclerotic heart disease of native coronary artery without angina pectoris; E78.5 Hyperlipidemia, unspecified; F32.9 Major depressive disorder, single episode, unspecified; F03.90 Unspecified dementia, unspecified severity, without behavioral disturbance, psychotic disturbance, mood disturbance, and anxiety; Z86.73 Personal history of transient ischemic attack (TIA), and cerebral infarction without residual deficits
CPT/HCPCS: 92950; J0171